=== PATIENT | male | born 1945 | race Hispanic/Latino ===

== ENCOUNTER 2020-05-03 13:42 | Emergency (ER) | payer MEDICARE ==
[~2020-05-03] VITALS: Ht 165.1 cm; Wt 75.7 kg
[2020-05-03] MEDS ORDERED: SODIUM CHLORIDE 0.9% 1000ML 1,000 ML IV STA (14:04)
--- NOTE | 2020-05-03 14:05 | NUR ---
RT TYSHAWN AT BEDSIDE AT THIS TIME TO PLACE PATIENT ON AIR-VO DUE TO LOW O2 SATS ON STANDARD NASAL CANNULA.
--- NOTE | 2020-05-03 14:11 | NUR ---
PT NOW ON AIR-VO, 40L AT 70%. CURRENT OXYGEN SATS ARE NOW 94%
[2020-05-03] MEDS ORDERED: CEFTRIAXONE SOD 1 GM/NS 50 ML 50 ML IV ONE (14:15)
[2020-05-03 14:28] LABS: BASOPHILS % 0.2 % (0.0-1.0); EOSINOPHILS % 0.1 % (0.0-6.0); LYMPHOCYTES # (AUTO) 0.5 (1.0-3.2); LYMPHOCYTES % 5.4 % (18.0-39.1); MEAN CORPUSCULAR HEMOGLOBIN 34.3 pg (28-32); MEAN CORPUSCULAR HGB CONC 35.9 g/dL (31-35); MEAN CORPUSCULAR VOLUME 95.6 fL (81-99); MONOCYTES # (AUTO) 0.2 (0.2-0.8); MONOCYTES % 2.4 % (4.4-11.3); NEUTROPHILS # (AUTO) 8.6 (2.1-6.9); NEUTROPHILS % 91.4 % (38.7-80.0); PLATELET COUNT 166 x10e3/uL (140-360); RED BLOOD COUNT 4.08 x10e6/uL (4.3-5.7); RED CELL DISTRIBUTION WIDTH 12.7 % (11.7-14.4)
[2020-05-03] MEDS ORDERED: DEXAMETHASONE SOD PHOS INJ 4 MG/ML VIAL IV ONE (14:30)
[2020-05-03 14:37] LABS: INR 0.96; PROTHROMBIN TIME 13.3 seconds (11.9-14.5)
[2020-05-03 14:38] LABS: PARTIAL THROMBOPLASTIN TIME 65.2 seconds (23.8-35.5)
[2020-05-03 14:45] LABS: ALANINE AMINOTRANSFERASE 23 IU/L (0-55); ALBUMIN 2.9 g/dL (3.5-5.0); ALBUMIN/GLOBULIN RATIO 0.6 (0.8-2.0); ALKALINE PHOSPHATASE 63 IU/L (40-150); ANION GAP 14.3 mmol/L (8-16); BLOOD UREA NITROGEN 13 mg/dL (7-26); BUN/CREATININE RATIO 16 (6-25); CALCIUM 8.1 mg/dL (8.4-10.2); CARBON DIOXIDE 24 mmol/L (22-29); CHLORIDE 93 mmol/L (98-107); CREATINE KINASE 62 IU/L (30-200); CREATININE, SERUM 0.83 mg/dL (0.72-1.25); EST GLOMERULAR FILTRATION RATE > 60 ML/MIN (60-); GLUCOSE 114 mg/dL (74-118); POTASSIUM 4.3 mmol/L (3.5-5.1); SODIUM 127 mmol/L (136-145)
--- NOTE | 2020-05-03 14:54 | Emergency Department Note ---
History of Present Illnes History of Present Illness Chief Complaint: COVID PUI History of Present Illness This is a 75 year old male Patient in from home with complaints of fever, fatigue and weakness over the last two weeks. Patient tested positive for Covid- 19 16 days ago and positive for flu 6 days ago. Patient denies pain and shortness of breath. Patient is afebrile in triage but has an oxygen saturation of 62% on room air and 83% on 4L N/C. Patient has a history of parkinson disease. No respiratory distress noted. 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 Any updates have been documented here. Past Medical History Recent Fever: Yes Clinical Suspicion of Infectio: Yes New/Unexplained Change in Ment: No Past Medical History: Hypertension, CAD, Hyperlipedemia Other Medical History: parkinson disease Past Surgical History: PCI Social History Smoking Cessation: Never Smoker Counseling Performed: No Alcohol Use: None Any Illegal Drug Use: No TB Exposure/Symptoms: No Physically hurt or threatened: No Family History Family history of heart diseas: No Other Any Pre-Existing Lines (PICC,: No Review of Systems Review of Systems Constitutional: Reports as per HPI EENTM: Reports no symptoms Cardiovascular: Reports as per HPI Respiratory: Reports as per HPI Gastrointestinal: Reports no symptoms Genitourinary: Reports no symptoms Musculoskeletal: Reports other (ACHY ALL OVER) Integumentary: Reports no symptoms Neurological: Reports no symptoms Psychological: Reports no symptoms Endocrine: Reports no symptoms Hematological/Lymphatic: Reports no symptoms Physical Exam Related Data Allergies: Coded Allergies: Penicillins (Verified Allergy, Unknown, 05/03/20) Triage Vital Signs Vital Signs Date Time Temp Pulse Resp B/P (MAP) Pulse Ox O2 Delivery O2 Flow Rate FiO2 05/03/20 13:47 98.9 93 18 157/80 75 Nasal Cannula 4.0 05/03/20 14:12 70 Vital signs reviewed: Yes Physical Exam CONSTITUTIONAL Constitutional: Present well-developed, Present well-nourished HENT HENT: Present normocephalic, Present atraumatic, Present oropharynx clear/moist, Present nose normal HENT L/R: Present left ext ear normal, Present right ext ear normal EYES Eyes: Reports PERRL, Reports conjunctivae normal NECK Neck: Present ROM normal PULMONARY Pulmonary: Present effort normal, Present respiratory distress (tachypnea, low O2 sat), Present other (scattered diffuse rhonchi and decr BS's throughout) CARDIOVASCULAR Cardiovascular: Present regular rhythm, Present heart sounds normal, Present capillary refill normal, Present normal rate GASTROINTESTINAL Abdominal: Present soft, Present nontender, Present bowel sounds normal GENITOURINARY Genitourinary: Present exam deferred SKIN Skin: Present warm, Present dry MUSCULOSKELETAL Musculoskeletal: Present ROM normal NEUROLOGICAL Neurological: Present alert, Present oriented x 3, Present no gross motor or sensory deficits PSYCHOLOGICAL Psychological: Present mood/affect normal, Present judgement normal Results Laboratory Result Diagram: 05/03/20 1400 05/03/20 1400 Laboratory Laboratory Tests Test 05/03/20 14:00 White Blood Count 9.43 x10e3/uL (4.8-10.8) Red Blood Count 4.08 x10e6/uL (4.3-5.7) Hemoglobin 14.0 g/dL (14.0-18.0) Hematocrit 39.0 % (38.2-49.6) Mean Corpuscular Volume 95.6 fL (81-99) Mean Corpuscular Hemoglobin 34.3 pg (28-32) Mean Corpuscular Hemoglobin Concent 35.9 g/dL (31-35) Red Cell Distribution Width 12.7 % (11.7-14.4) Platelet Count 166 x10e3/uL (140-360) Neutrophils (%) (Auto) 91.4 % (38.7-80.0) Lymphocytes (%) (Auto) 5.4 % (18.0-39.1) Monocytes (%) (Auto) 2.4 % (4.4-11.3) Eosinophils (%) (Auto) 0.1 % (0.0-6.0) Basophils (%) (Auto) 0.2 % (0.0-1.0) Neutrophils # (Auto) 8.6 (2.1-6.9) Lymphocytes # (Auto) 0.5 (1.0-3.2) Monocytes # (Auto) 0.2 (0.2-0.8) Eosinophils # (Auto) 0.0 (0.0-0.4) Basophils # (Auto) 0.0 (0.0-0.1) Absolute Immature Granulocyte (auto 0.05 x10e3/uL (0-0.1) Prothrombin Time 13.3 seconds (11.9-14.5) Prothromb Time International Ratio 0.96 Activated Partial Thromboplast Time 65.2 seconds (23.8-35.5) Sodium Level 127 mmol/L (136-145) Potassium Level 4.3 mmol/L (3.5-5.1) Chloride Level 93 mmol/L (98-107) Carbon Dioxide Level 24 mmol/L (22-29) Anion Gap 14.3 mmol/L (8-16) Blood Urea Nitrogen 13 mg/dL (7-26) Creatinine 0.83 mg/dL (0.72-1.25) Estimat Glomerular Filtration Rate > 60 ML/MIN (60-) BUN/Creatinine Ratio 16 (6-25) Glucose Level 114 mg/dL (74-118) Calcium Level 8.1 mg/dL (8.4-10.2) Total Bilirubin 1.4 mg/dL (0.2-1.2) Aspartate Amino Transf (AST/SGOT) 39 IU/L (5-34) Alanine Aminotransferase (ALT/SGPT) 23 IU/L (0-55) Alkaline Phosphatase 63 IU/L (40-150) Creatine Kinase 62 IU/L (30-200) Total Protein 7.4 g/dL (6.5-8.1) Albumin 2.9 g/dL (3.5-5.0) Globulin 4.5 g/dL (2.3-3.5) Albumin/Globulin Ratio 0.6 (0.8-2.0) Influenza Virus Types A,B Antigen Negative (NEGATIVE) Lab results reviewed: Yes Imaging Imaging results reviewed: Yes Procedures 12 Lead ECG Interpretation ECG Interpretation : ECG: ECG 1 Linseed Cake Trimmer: Interpreted by ED physician Date: May 03, 2020 Time: 15:29 Rhythm: sinus rhythm Rate: normal BPM: 91 Conduction: right bundle branch block ST segments normal: Yes T wave inversion: III, aVR, V1, V2 T waves flattening: aVF Clinical Impression: abnormal ECG Critical Care Time Total Critical Care Time (min): 45 Critcal care time spent by me: discussion w consultants, examination of patient, obtaining hx from patient/surrogate, order/perform tx or interventions, order/review laboratory studies, order/review radiographic studies, pulse oximetry, re-evaluation of patient condition Assessment & Plan Medical Decision Making MDM recent covid positive then influenza positive presents feeling worse, fatigue/weak, with O2 sat 62% on RA - went to 83% on 4L NC - then AirVo initiated, currently 95-96% sat on 40L with 70% O2. CBC, CHEM, ECG, CARDIACS, COVID SWAB, INFLUENZA SWAB, CT CHEST - R/O COVID, INFLUENZA, PULM EMBOLI, PNEUMONIA, STEMI/NSTEMI Reassessment Reassessment PT COVID POSITIVE - NO COVID BEDS AVAILABLE HERE, WILL INITIATE TRANSFER - I SPOKE WITH DR ALTAMIRANO (HOSPITALIST) AND DR CYR (HOTEL HOUSEMAN) AT [facility] - ACCEPTED FOR TRANSFER Assessment & Plan Final Impression: (1) Pneumonia due to COVID-19 virus (2) Hypoxia (3) Respiratory failure with hypoxia Depart Disposition: TRANS TO OTHER [facility] Last Vital Signs Date Time Temp Pulse Resp B/P (MAP) Pulse Ox O2 Delivery O2 Flow Rate FiO2 05/03/20 14:12 82 21 123/69 94 Airvo 40.0 70 05/03/20 13:47 98.9 Medications in the ED Sodium Chloride 1,000 ml @ 0 mls/hr Q0M STAT IV ; Start 05/03/20 at 14:04; Stop 05/03/20 at 14:07; Status DC Ceftriaxone Sodium 50 ml @ 100 mls/hr ONCE ONCE IV ; Start 05/03/20 at 14:15; Stop 05/03/20 at 14:44; Status DC Azithromycin 250 ml @ 200 mls/hr ONCE ONCE IV ; Start 05/03/20 at 15:00; Stop 05/03/20 at 16:14 Dexamethasone Sodium Phosphate 6 mg ONCE ONCE IV ; Start 05/03/20 at 14:30; Stop 05/03/20 at 14:31; Status DC MERRILL PICKARD MD May 03, 2020 14:54
[2020-05-03] MEDS ORDERED: AZITHROMYCIN 500MG/NS 250 ML 250 ML IV ONE (15:00)
[2020-05-03] MEDS ORDERED: IOPAMIDOL 370 MG/ML 200 ML INFUS..BTL INJ ONE (15:19)
[2020-05-03] MEDS ORDERED: SODIUM CHLORIDE 0.9% 50ML 50 ML ONE (15:19)
[2020-05-03 16:29] LABS: LYMPHOCYTES % (MANUAL) 2 % (19-48); MONOCYTES % (MANUAL) 2 % (3.4-9.0); NEUTROPHILS % (MANUAL) 96 % (40-74)
[2020-05-03 16:30] LABS: RBC MORPHOLOGY COMMENT NORMAL
[2020-05-03 16:31] LABS: PLATELET ESTIMATE ADEQUATE; PLATELET MORPHOLOGY COMMENT NORMAL
--- NOTE | 2020-05-03 18:27 | NUR ---
PT TO BE TRANSFERRED TO [facility] AT THIS TIME PER HS.
--- NOTE | 2020-05-03 18:29 | NUR ---
ICU-[facility] TRANSFER CENTER FOR REPORT
--- NOTE | 2020-05-03 18:41 | NUR ---
REPORT GIVEN TO [facility] ANIMAL FACILITY SUPERVISOR, EVELIA, AT THIS TIME. [facility] TRANSPORT AT THIS TIME.
--- NOTE | 2020-05-03 18:48 | NUR ---
[facility] ETA 2000 FOR TRANSPORT TO [facility]. DAUGHTERS HAVE BEEN INFORMED OF PATIENT'S TRANSFER.
--- NOTE | 2020-05-03 20:20 | NUR ---
PT JUST [facility] AT [facility]
--- NOTE | 2020-05-04 08:33 | Diagnostic Imaging Report ---
EXAM: CT Chest WITH contrast 05/03/2020 3:50 PM INDICATION: ^Y ^PE PROTOCOL ^[id number] ^[id number] COMPARISON: None TECHNIQUE: Chest was scanned utilizing a multidetector helical scanner from the lung apex through the level of the adrenal glands with administration of IV contrast. Coronal and sagittal reformations were obtained. Routine protocol was performed. IV CONTRAST: 100 mL of Omnipaque 300 COMPLICATIONS: None RADIATION DOSE: Total DLP: 506 mGy*cm Estimated effective dose: (DLP x 0.014 x size factor) mSv CTDIvol has been reviewed. It is below the limits set by the Radiation Protocol Committee (RPC). Dose modulation, iterative reconstruction, and/or weight based adjustment of the mA/kV was utilized to reduce the radiation dose to as low as reasonably achievable. FINDINGS: LINES/ TUBES: None. VASCULAR: There are no filling defects within the pulmonary arteries to the segmental level. The main pulmonary artery has normal caliber measuring 2.7 cm. The ascending and descending aorta have normal enhancement and caliber measuring 3.7 cm and 2.6 cm, respectively. LUNGS AND AIRWAYS: There is diffuse groundglass opacity with patchy areas of lungs bearing. There is also diffuse bronchial wall thickening. Airways are normal. PLEURA: The pleural spaces are clear. HEART AND MEDIASTINUM: The thyroid gland is normal. No mediastinal, hilar or axillary lymphadenopathy. The heart is mildly enlarged. There is no pericardial effusion. There are significant atherosclerotic calcifications of the coronary arteries. UPPER ABDOMEN: Unremarkable. BONES: There are degenerative changes in the thoracic spine. SOFT TISSUES: Unremarkable. IMPRESSION: 1. No evidence of pulmonary embolism to the segmental levels. 2. Diffuse patchy groundglass opacities throughout both lungs most compatible with multifocal pneumonia. 3. Moderate cardiomegaly with severe atherosclerotic calcification of the coronary vessels. Findings were discussed with Dr. De Leon at 7:30 PM on 05/03/2020. Signed by: Anjelica Szymanski MD on 05/04/2020 8:30 AM
--- OUTSIDE RECORDS SUMMARY | 2020-05-04 10:07 | XMS REPORT | Continuity of Care Document ---
Author Author [facility] t Organization Formerly [facility] Address [address] [place] [address] Phone Unavailable Care Team Providers Care Painter Interior Finish Name Role Phone MD Roney BERNARD PCP ROCIO ALTAMIRANO Attphys Unavailable Rocio Altamirano MD Attphys [phone] Mirna DEL RIO, Jb Cooley Attphys Brad DE LEON Attphys Unavailable Jason WEINBERG Attphys Unavailable TEN CONTRERAS Attphys Unavailable ELOINA ANGEL Attphys Unavailable ROCIO ALTAMIRANO Admphys Unavailable ELOINA ANGEL Admphys Unavailable Payers Payer Name Policy Type Policy Number Effective Date Expiration Date Roney puentes [employer] PPO [id number] 2019-PresentMaps Karlos fontaine [id number] 2019 00:00:00 [facility] r [employer] [place] [employer] [facility] [id number] 2019 00:00:00 [facility] [employer] [id number] 2015 00:00:00 [facility] Problems Condition Name Condition Details Condition Category Status Onset Date Resolution Date Last Treatment Date Treating Clinician Comments Source Pneumonia due to COVID-19 virus Pneumonia due to COVID-19 virus Dis ease Active 2020-05-04 00:00:00 [facility] Acute respiratory failure with hypoxia Acute respiratory iraj lure with hypoxia Disease Active 2020-05-04 00:00:00 [facility] COVID-19 COVID-19 Disease Active 2020-05-03 00:00:00 [facility] Chest pain Chest pain Problem Active 2015-09-21 00:00:00 [facility] Hypoxia Problem Active [facility] Respiratory failure with hypoxia Problem Active [facility] Fever Problem Active [facility] Influenza due to influenza virus, type A, human Problem Active [facility] Allergies, Adverse Reactions, Alerts Allergy Name Allergy Type Status Severity Reaction(s) Onset Date Inacti ve Date Treating Clinician Comments Source Penicillin Allergy to substance Active 2020-05-03 00:00:00 [facility] Penicillins Propensity to adverse reactions Active Audrey phylaxis 2020-05-03 00:00:00 [facility] DA Active SV 2018-09-26 00:00:00 [facility] Atorvastatin Allergy to substance Active 2018-09-22 00:00:0 0 [facility] penicillin Allergy to substance Active Mild RASH/ FEVER 2015-09-21 0 0:00:00 [facility] Penicillins DA Active U 2009-03-11 00:00:00 [facility] Social History Social Habit Start Date Stop Date Quantity Comments Source Sex Assigned At [facility] Exposure to SARS-CoV-2 (event) Not sure [facility] Medications Ordered Medication Name Filled Medication Name Start Date Stop Da te Current Medication? Ordering Clinician Indication Dosage Frequency Signature (SIG) Comments Components Source clopidogreL (PLAVIX) 75 mg tablet 2020-05-04 09:06:58 Yes 75mg QD Take 75 mg by mouth daily. [facility] carvediloL (COREG) 6.25 MG tablet 2020-05-04 09:06:58 Yes 6.25mg Take 6.25 mg by mouth 2 (two) times daily with breakfast and dinner. [facility] amLODIPine (NORVASC) 5 MG tablet 2020-05-04 09:06:58 Yes 5mg QD Take 5 mg by mouth daily. [facility] rosuvastatin (CRESTOR) 5 MG tablet 2020-05-04 09:06:58 Yes 5mg QD Take 5 mg by mouth daily. [facility] aspirin 81 MG EC tablet 2020-05-04 09:06:58 Yes 81mg QD Take 81 mg by mouth daily. [facility] losartan (COZAAR) 50 MG tablet 2020-05-04 09:06:58 Yes 50mg QD Take 50 mg by mouth daily. [facility] fluticasone (VERAMYST) 27.5 mcg/actuation nasal spray 2020-05-04 09:06:58 Yes 2{spray} QD 2 sprays by Nasal route daily. [facility] carbidopa-levodopa (SINEMET) 25-100 mg per tablet 2020-05-04 09:06:58 Yes 1{tbl} [id number] Take 1 tablet by mouth 3 (three ) times daily. [facility] Amlodipine Besylate Amlodipine Besylate Yes 5 Daily [facility] Aspirin (Aspir 81) 81 Mg TABLET. Aspirin (Aspir 81) 81 Mg TABLET. Yes 81 Daily [facility] Atenolol Atenolol Yes [address] [facility] Benzonatate (Tessalon Perle) 100 Mg CAPSULE Benzonatat e (Tessalon Perle) 100 Mg CAPSULE Yes 100 Every 6 Hours as needed for Co ugh [facility] Clopidogrel Bisulfate (Clopidogrel) 75 Mg TABLET Clopi dogrel Bisulfate (Clopidogrel) 75 Mg TABLET Yes 75 Daily [facility] Fluticasone Propionate Fluticasone Propionate Yes 1 Twice A Day [facility] Isosorbide Mononitrate (Isosorbide Mononitrate Er) 30 Mg TAB.ER.24H Isosorbide Mononitrate (Isosorbide Mononitrate Er) 30 Mg TAB.ER.24H Yes 30 Daily [facility] Loratadine Loratadine Yes 10 Daily [facility] Medrol Medrol Yes Twice A Day [facility] Montelukast Sodium Montelukast Sodium Yes 10 Da simran [facility] Rosuvastatin Calcium (Crestor) 5 Mg TABLET Rosuvastati n Calcium (Crestor) 5 Mg TABLET Yes 5 Daily [facility] Vital Signs Vital Name Observation Time Observation Value Comments Source Systolic blood pressure 2020-05-04 08:00:00 133 mm[Hg] [facility] Diastolic blood pressure 2020-05-04 08:00:00 73 mm[Hg] [facility] Heart rate 2020-05-04 08:00:00 87 /min [facility] Respiratory rate 2020-05-04 08:00:00 22 /min [facility] Oxygen saturation in Arterial blood by Pulse oximetry 2019-06 08:00:00 95 /min [facility] Body temperature 2020-05-04 04:00:00 36.67 Rachelle [facility] Body height 2020-05-03 23:32:00 165.1 cm [facility] Body weight 2020-05-03 21:30:00 79.833 kg [facility] BMI 2020-05-03 21:30:00 29.29 kg/m2 [facility] Oxygen saturation by Pulse oximetry 2020-05-03 18:05:00 97 /min [facility] Heart Rate 2020-05-03 14:11:00 89 /min [facility] Respiratory rate 2020-05-03 14:11:00 24 /min [facility] Weight 2020-05-03 13:47:00 167 [lb_av] [facility] BMI (Body Mass Index) 2020-05-03 13:47:00 27.8 kg/m2 [facility] Oxygen saturation by Pulse oximetry 2020-04-28 23:13:00 99 /min [facility] Weight 2020-04-28 19:50:00 170 [lb_av] [facility] BMI (Body Mass Index) 2020-04-28 19:50:00 7.6 kg/m2 [facility] Procedures Procedure Date / Time Performed Performing Clinician Sour e BASIC METABOLIC PANEL (7) 2020-05-04 05:30:00 Jacquelin Alba [facility] CT BRAIN WITHOUT IV CONTRAST 2020-05-04 02:34:00 Jacquelin Alba icole [facility] CT CHEST PE TEST DESIGN 2020-05-04 02:34:00 Parth, Jacquelinrogerio Heath [facility] ECG 12-LEAD 2020-05-04 01:37:46 Unknown, Hl7 Doctor [facility] RAPID INFLUENZA A&B SCREEN 2020-05-04 00:38:00 Jacquelin Alba [facility] BLOOD GAS, ARTERIAL 2020-05-03 23:33:00 Parth Jacquelinrogerio Heath [facility] XR CHEST 1 VIEW PORTABLE/BEDSIDE 2020-05-03 22:38:00 Ricky Alba [facility] HEMOGLOBIN A1C 2020-05-03 22:36:00 Parth, Jacquelinrogerio Heath [facility] MAGNESIUM 2020-05-03 22:35:00 Parth, Jacquelinrogerio Heath [facility] PHOSPHORUS 2020-05-03 22:35:00 Fillmore, Jacquelin [facility] CALCIUM, IONIZED 2020-05-03 22:35:00 FillmoreJacquelin [facility] TSH/FREE T4 IF INDICATED 2020-05-03 22:35:00 FillmoreJacquelin e [facility] T4, FREE 2020-05-03 22:35:00 Fillmore Jacquelinrogerio Heath [facility] PROTHROMBIN TIME/INR 2020-05-03 22:29:00 Fillmore Jacquelinrogerio Heath [facility] APTT 2020-05-03 22:29:00 Fillmore Jacquelinrogerio Heath [facility] COMPREHENSIVE METABOLIC PANEL 2020-05-03 22:29:00 Fillmore Jacquelinrogerio Heath [facility] PROCALCITONIN 2020-05-03 22:29:00 [facility]ACT[facility], VENOUS 2020-05-03 22:29:00 Parth, Jacquelin Heath [facility] FERRITIN 2020-05-03 22:29:00 Parth, [facility] C-REACTIVE PROTEIN 2020-05-03 22:29:00 Parth, [facility] LACTATE DEHYDROGENASE (LDH) 2020-05-03 22:29:00 Parth, Jacquelin shook [facility] D-DIMER 2020-05-03 22:29:00 Parth, [facility] LIPID PANEL 2020-05-03 22:29:00 Parth, [facility] CBC W/PLT COUNT & AUTO DIFFERENTIAL 2020-05-03 22:29:00 Roney Alba bonita [facility] POCT-GLUCOSE METER 2020-05-03 22:05:00 Manish Altamirano I [facility] Computed tomography of chest with contrast 2020-05-03 00:00:00 [facility] Plan of Care Planned Activity Planned Date Details Comments Source Future Scheduled Test 2020-02-13 00:00:00 INFLUENZA VACCINE (#1) [code = INFLUENZA VACCINE (#1)] [facility] r Future Scheduled Test 2019-06-14 00:00:00 Medicare IPPE (WEL COME TO MEDICARE) [code = Medicare IPPE (WELCOME TO MEDICARE)] [facility] Future Scheduled Test 2008-01-28 00:00:00 PNEUMOCOCCAL 65+ Y RS (1 of 1 - [id number] PCV13) [code = PNEUMOCOCCAL 65+ YRS (1 of 1 - [id number] PCV13)] [facility] Instructions Fever - Adult [facility] Instructions Flu - Adult [facility] Encounters Start Date/Time End Date/Time Encounter Type Admission Type Attendi [facility] Care Department Encounter ID Source 2020-04-28 20:01:00 2020-04-28 23:30:00 Departed Emergency Room 1 SERA WEINBERG [facility] [id number] [facility] 2019-06-30 10:57:00 2019-07-14 23:59:00 Discharged Recurring [facility] [id number] [facility] 2019-06-16 10:33:00 2019-06-16 10:33:00 Registered Clinic 3 TEN CONTRERAS [facility] [id number] [facility] 2019-05-26 11:04:00 2019-06-13 23:59:00 Discharged Recurring [facility] [id number] [facility] 2019-04-20 11:12:00 2019-05-13 23:59:00 Discharged Recurring [facility] [id number] [facility] 2019-03-15 10:05:00 2019-04-13 23:59:00 Discharged Recurring [facility] [id number] [facility] 2019-02-16 10:15:00 2019-03-13 23:59:00 Discharged Recurring [facility] [id number] [facility] 2018-09-26 16:04:00 2018-09-26 16:26:00 Departed Emergency Room [facility] [id number] [facility] 2018-09-23 01:34:00 2018-09-24 16:01:00 Discharged Inpatient (obs) 1 ELOINA ANGEL [facility] [id number] [facility] Results Test Description Test Time Test Comments Results Result Comments Source CT CHEST W 2020-05-04 08:13:00 [facility] 1945 Sex: M [place] [address] Patient Name: DAVID TUCKER JR MR #: [id number] : 1945 Age/Sex: 75/M Req #: [id number] Adm Physician: Ordered by: MERRILL DE LEON MD Report #: [id number] Location: ER Room/Bed: Procedure: [id number] CT/CT CHEST W Exam Date: 05/03/20 Exam Time: 1550 REPORT STATUS: Signed EXAM: CT Chest WITH contrast 05/03/2020 3:50 PM INDICATION: Y PE PROTOCOL [id number] COMPARISON: None TECHNIQUE: Chest was scanned utilizing a multidetector helical scanner from the lung apex through the level of the adrenal glands with administration of IV contrast. Coronal and sagittal reformations were obtained. Routine protocol was performed. IV CONTRAST: 100 mL of Omnipaque 300 COMPLICATIONS: None RADIATION DOSE: Total DLP: 506 mGy*cm Estimated effective dose: (DLP x 0.014 x size factor) mSv CTDIvol has been reviewed. It is below the limits set by the Radiation Protocol Committee (RPC). Dose modulation, iterative reconstruction, and/or weight based adjustment of the mA/kV was utilized to reduce the radiation dose to as low as reasonably achievable. FINDINGS: LINES/ TUBES: None. VASCULAR: There are no filling defects within the pulmonary arteries to the segmental level. The main pulmonary artery has normal caliber measuring 2.7 cm. The asc ending and descending aorta have normal enhancement and caliber measuring 3.7 cm and 2.6 cm, respectively. LUNGS AND AIRWAYS: There is diffuse groundglass opacity with patchy areas of lungs bearing. There is also diffuse bronchial wall thickening. Airways are normal. PLEURA: The pleural spaces are clear. HEART AND MEDIASTINUM: The thyroid gland is normal. No mediastinal, hilar or axillary lymphadenopathy. The heart is mildly enlarged. There is no pericardial effusion. There are significant atherosclerotic calcifications of the coronary arteries. UPPER ABDOMEN: Unremarkable. BONES: There are degenerative changes in the thoracic spine. SOFT TISSUES: Unremarkable. IMPRESSION: 1. No evidence of pulmonary embolism to the segmental levels. 2. Diffuse patchy groundglass opacities throughout both lungs most compatible with multifocal pneumonia. 3. Moderate cardiomegaly with severe atherosclerotic calcification of the coronary vessels. Findings were discussed with Dr. De Leon at 7:30 PM on 05/03/2020. Signed by: Amber Clifton MD on 05/04/2020 8:30 AM Dictated By: AMBER CLIFTON MD 9 Transcribed By: CAROLINE on 05/04/20829 COPY TO: MERRILL DE LEON MD Basic Metabolic Panel 2020-05-04 07:04:00 Test Item Sodium (test code = 2951-2) 129 meq/L 135-148 L Potassium (test code = 2823-3) 4.0 meq/L 3.5-5.5 Chloride (test code = 2075-0) 98 meq/L 98-106 CO2 (test code = 2027-9) 20 meq/L 20-31 BUN (test code = 3094-0) 13 mg/dL 10-26 Creatinine (test code = 2160-0) 0.69 mg/dL 0.5-1.2 Glucose (test code = 2345-7) 166 mg/dL 70-110 H Calcium (test code = 03296-2) 7.7 mg/dL 8.5-10.5 L EGFR (test code = 86665-8) 111 mL/min/1.73 sq m ESTIMATED GFR IS NOT ACCURATE CREATININE CLEARANCE IN PREDICTING GLOMERULAR FILTRATION RATE. ESTIMATED GFR IS NOT APPLICABLE FOR DIALYSIS PATIENTS. HENRY (test code = HENRY) Surgical Territory Manager ID - [id number] Lab Interpretation (test code = 10092-3) [facility] [id number] 07:04:00* Test Item Value Reference Range Interpretation Comments SODIUM (BEAKER) (test code = 381) 129 meq/L 135-148 L POTASSIUM (BEAKER) (test code = 379) 4.0 meq/L 3.5-5.5 CHLORIDE (BEAKER) (test code = 382) 98 meq/L 98-106 CO2 (BEAKER) (test code = 355) 20 meq/L 20-31 BLOOD UREA NITROGEN (BEAKER) (test code = 354) 13 mg/dL 10-26 CREATININE (BEAKER) (test code = 358) 0.69 mg/dL 0.50-1.20 GLUCOSE RANDOM (BEAKER) (test code = 652) 166 mg/dL 70-110 H CALCIUM (BEAKER) (test code = 697) 7.7 mg/dL 8.5-10.5 L EGFR (BEAKER) (test code = 1092) 111 mL/min/1.73 sq m ESTIMATED GFR IS NOT ACCURATE CREATININE CLEARANCE IN PREDICTING GLOMERULAR FILTRATION RATE. ESTIMATED GFR IS NOT APPLICABLE FOR DIALYSIS PATIENTS. Surgical Territory Manager ID - [id number], CHEST WITH IV CONTRAST- PE TEST [id number] 03:31:00Unlisted Reason for Exam - Click Yes and Enter Reason Below->No [facility] 1945 Sex: M FINAL REPORT 48 CT, CHEST WITH IV CONTRAST- PE TEST DESIGN INDICATION: PE suspected, intermed iate prob, positive D-dimer COMPARISON: None TECHNIQUE: Contrast enhanced CT exa mination of the chest in the pulmonary arterial phase from the bases to the apic es. Orthogonal reformatted images as well as coronal maximum intensity projectio n images were obtained. DOSE REDUCTION: Dose modulation, iterative reconstructi on, and/or weight-based adjustment of the mA/kV was utilized to reduce the radia tion dose to as low as reasonably achievable. FINDINGS: Lungs and pleura: Extens leonela bilateral groundglass opacities are present. No effusion or pneumothorax.Stan tral airways: Patent.Mediastinum: The mediastinal lymph nodes are not pathologic ally enlarged.Heart and pericardium: Normal heart size. Coronary artery calcific ations present. Great vessels: Normal calibers.Pulmonary embolism: None. Regiona l skeletal structures: Intact. Included upper abdomen: No acute abnormalities. A dditional findings: None. IMPRESSION:No pulmonary embolism. Commonly reported im aging features of (COVID-19 or viral) pneumonia are present. Other processes suc h as influenza pneumonia and organizing pneumonia, as can be seen with drug toxi city and connective tissue disorder, can cause a similar imaging pattern. Signed : Jamar Nicole MDReport Verified Date/Time: 05/04/2020 03:31:23 Electron ically signed by: JAMAR NICOLE MD on 05/04/2020 03:[address] chest for pulmonary [id number] 03:31:00Interface, External Ris In - 05/04/2020 3:[address], CHEST WITH IV CONTRAST- PE TEST DESIGN INDICATION: PE suspected, intermediate prob, positive D-dimer COMPARISON: None TECHNIQUE: Contrast enhanced CT examination of the chest in the pulmonary arterial phase from the bases to the apices. Orthogonal reformatted images as well as coronal maximum intensity projection images were obtained. DOSE REDUCTION: Dose modulation, iterative reconstruction, and/or weight-based adjustment of the mA/kV was utilized to reduce the radiation dose to as low as reasonably achievable. FINDINGS: Lungs and pleura: Extensive bilateral groundglass opacities are present. No effusion or pneumothorax.Central airways: Patent.Mediastinum: The mediastinal lymph nodes are not pathologically enlarged.Heart and pericardium: Normal heart size. Coronary artery tristan cifications present. Great vessels: Normal calibers.Pulmonary embolism: None. Re gional skeletal structures: Intact. Included upper abdomen: No acute abnormaliti es. Additional findings: None. IMPRESSION:No pulmonary embolism. Commonly report ed imaging features of (COVID-19 or viral) pneumonia are present. Other processe s such as influenza pneumonia and organizing pneumonia, as can be seen with drug toxicity and connective tissue disorder, can cause a similar imaging pattern. S igned: Jamar Nicole MDReport Verified Date/Time: 05/04/2020 03:31:23 Kina ctronically signed by: JAMAR NICOLE MD on 05/04/2020 03:31 AM [facility] [id number] 03:23:00Unlisted Reason for Exam - Click Yes and Enter Reason Below->No [facility] 1945 Sex: M FINAL REPORT 48 CT, BRAIN, WITHOUT CONTRAST CLINICAL INDICATION: Altered mental status OBI RISON: None TECHNIQUE: Noncontrast axial CT imaging of the brain and skull. Cor onal and sagittal reformats obtained. DOSE REDUCTION: Dose modulation, iterative reconstruction, and/or weight-based adjustment of the mA/kV was utilized to red uce the radiation dose to as low as reasonably achievable. FINDINGS:Cerebral par enchyma: No mass, acute intracranial hemorrhage or acute cortical infarct.Cerebe llum and brainstem: No acute findings.Ventricles: No acute hydrocephalus.Extra-a xial spaces: Unremarkable. Calvarium and skull base: Intact.Paranasal sinuses an d mastoid air cells: Imaged chambers are without acute abnormality.Orbital lit nts: Included portions unremarkable. Additional findings: None. IMPRESSION: No acute intracranial abnormality. If there is persistent clinical concern for intr acranial pathology, MR examination is recommended for further characterization. Signed: Jamar Nicole MDReport Verified Date/Time: 05/04/2020 03:23:46 El ectronically signed by: JAMAR NICOLE MD on 05/04/2020 03:[address] brain without IV [id number] 03:23:00Interface, External Ris In - 05/04/2020 3:[address], BRAIN, WITHOUT CONTRAST CLINICAL INDICATION: Altered mental status COMPARISON: None TECHNIQUE: Noncontrast axial CT imaging of the brain and skull. Coronal and sagittal reformats obtained. DOSE REDUCTION: Dose modulation, iterative reconstruction, and/or weight-based adjustment of the mA/kV was utilized to reduce the radiation dose to as low as reasonably achievable. FINDINGS:Cerebral parenchyma: No mass, acute intracranial hemorrhage or acute cortical infarct.Cerebellum and brainstem: No acute findings.Ventricles: No acute hydrocephalus.Extra-axial spaces: Unremarkable. Calvarium and skull base: Intact.Paranasal sinuses and mastoid air cells: Imaged chambers are without acute abnormality.Orbital contents: Included portions unremarkable. Additional findings: None. IMPRESSION : No acute intracranial abnormality. If there is persistent clinical concern for intracranial pathology, MR examination is recommended for further characterizat ion. Signed: Jamar Nicole MDReport Verified Date/Time: 05/04/2020 03:23:46 [facility] [id number] 01:43:00* Test Item Value Reference Range Interpretation Comments Rapid Influenza A Antigen (test code = 04127-2) Negative Negati ve Rapid influenza B Antigen (test code = 29717-6) Negative Negati ve Lab Interpretation (test code = 16203-1) Normal [facility]B [id number] 01:43:00* Test Item Value Reference Range Interpretation Comments RAPID INFLUENZA A AG (BEAKER) (test code = 1622) Negative Negat leonela RAPID INFLUENZA B AG (BEAKER) (test code = 1623) Negative Negat leonela T4, [id number] 01:25:00* Test Item Value Reference Range Interpretation Comments Free T4 (test code = 3024-7) 1.10 ng/dL 0.9-1.8 HENRY (test code = HENRY) Surgical Territory Manager ID - ZVermont TranscoRIS Lab Interpretation (test code = 65606-4) Normal [facility], [id number] 01:25:00* Test Item Value Reference Range Interpretation Comments FREE T4 (BEAKER) (test code = 655) 1.10 ng/dL 0.90-1.80 Surgical Territory Manager ID - ZCHRISHemoglobin [id number] 01:01:00* Test Item Value Reference Range Interpretation Comments Hemoglobin A1C (test code = 4548-4) 6.6 % 4.3-6.1 H HENRY (test code = HENRY) Surgical Territory Manager ID - QUALIA (formerly known as [employer])RIS Lab Interpretation (test code = 83252-4) Abnormal [facility] [id number] 01:01:00* Test Item Value Reference Range Interpretation Comments HEMOGLOBIN A1C (BEAKER) (test code = 368) 6.6 % 4.3-6.1 H Surgical Territory Manager ID - ZCHRISTSH/Free T4 If [id number] 00:25:00* Test Item Value Reference Range Interpretation Comments TSH (test code = 61772-1) 0.210 0.350- 5.500 uIU/mL L HENRY (test code = HENRY) Surgical Territory Manager ID - QUALIA (formerly known as [employer])RIS Lab Interpretation (test code = 70198-1) Abnormal [facility]/FREE T4 IF [id number] 00:25:00* Test Item Value Reference Range Interpretation Comments THYROID STIMULATING HORMONE (BEAKER) (test code = 772) 0.210 uIU /mL 0.350-5.500 L Surgical Territory Manager ID - [id number] 00:17:00* Test Item Value Reference Range Interpretation Comments Ferritin (test code = 2276-4) 1489.70 ng/mL 22-322 H HENRY (test code = HENRY) Surgical Territory Manager ID - [email or web address] Lab Interpretation (test code = 76026-0) Abnormal [facility]2020-11-21 00:17:00* Test Item Value Reference Range Interpretation Comments FERRITIN (BEAKER) (test code = 361) 1489.70 ng/mL 22.00-322.00 H Surgical Territory Manager ID - ZCHRISC-Reactive [id number] 00:04:00* Test Item Value Reference Range Interpretation Comments CRP (test code = 676) 27.92 mg/dL 0-0.5 H HENRY (test code = HENRY) Surgical Territory Manager ID - [facility] Lab Interpretation (test code = 25769-2) [facility]00* Test Item Value Reference Range Interpretation Comments Procalcitonin (test code = 13027-2) 0.07 ng/mL <0.05 H HENRY (test code = HENRY) SEPSIS RISK (ng/mL)Low: 0.05-0.50Intermediate: 0.51-2.00High: >=2.01 Lab Interpretation (test code = 93882-0) [facility]normal [facility]ACTIVE [id number] 00:04:00* Test Item Value Reference Range Interpretation Comments C-REACTIVE PROTEIN (BEAKER) (test code = 676) 27.92 mg/dL 0.00-0.5 0 H Surgical Territory Manager ID - [id number] 00:04:00* Test Item Value Reference Range Interpretation Comments PROCALCITONIN (BEAKER) (test code = 3036) 0.07 ng/mL <0.05 H SEPSIS RISK (ng/mL)Low: 0.05-0.50Intermediate: 0.51-2.00High: > =2.01Comprehensive metabolic [id number] 00:03:00* Test Item Value Reference Range Interpretation Comments Protein, Total (test code = 2885-2) 7.1 6.0- 8.5 gm/dL Albumin (test code = 33011-3) 3.1 g/dL 3.5-5 L Alkaline Phosphatase (test code = 6768-6) 76 U/L 30-115 Total Bilirubin (test code = 1975-2) 0.9 mg/dL 0.1-1.3 Sodium (test code = 2951-2) 129 meq/L 135-148 L Potassium (test code = 2823-3) 4.3 meq/L 3.5-5.5 Chloride (test code = 2075-0) 96 meq/L 98-106 L CO2 (test code = 2027-) 21 meq/L 20-31 BUN (test code = 3094-0) 11 mg/dL 10-26 Creatinine (test code = 2160-0) 0.72 mg/dL 0.5-1.2 Glucose (test code = 2345-7) 148 mg/dL 70-110 H Calcium (test code = 05351-7) 7.9 mg/dL 8.5-10.5 L AST (test code = 1920-8) 49 U/L 5-40 H ALT (test code = 1742-6) 29 U/L 6-50 EGFR (test code = 95944-0) 106 mL/min/1.73 sq m ESTIMATED GFR IS NOT ACCURATE CREATININE CLEARANCE IN PREDICTING GLOMERULAR FILTRATION RATE. ESTIMATED GFR IS NOT APPLICABLE FOR DIALYSIS PATIENTS. HENRY (test code = HENRY) Surgical Territory Manager ID - [employer] Lab Interpretation (test code = 06009-8) [facility]act[facility] dehydrogenase (LDH)2020-05-04 00:03:00* Test Item Value Reference Range Interpretation Comments LDH (test code = 2532-0) 428 U/L 125-225 H HENRY (test code = HENRY) Surgical Territory Manager ID - PicodeonCHRIS Lab Interpretation (test code = 14112-9) [facility]normal [facility]anoCOMPREHENSIVE METABOLIC [id number] 00:03:00* Test Item Value Reference Range Interpretation Comments TOTAL PROTEIN (BEAKER) (test code = 770) 7.1 gm/dL 6.0-8.5 ALBUMIN (BEAKER) (test code = 1145) 3.1 g/dL 3.5-5.0 L ALKALINE PHOSPHATASE (BEAKER) (test code = 346) 76 U/L 30-115 BILIRUBIN TOTAL (BEAKER) (test code = 377) 0.9 mg/dL 0.1-1.3 SODIUM (BEAKER) (test code = 381) 129 meq/L 135-148 L POTASSIUM (BEAKER) (test code = 379) 4.3 meq/L 3.5-5.5 CHLORIDE (BEAKER) (test code = 382) 96 meq/L 98-106 L CO2 (BEAKER) (test code = 355) 21 meq/L 20-31 BLOOD UREA NITROGEN (BEAKER) (test code = 354) 11 mg/dL 10-26 CREATININE (BEAKER) (test code = 358) 0.72 mg/dL 0.50-1.20 GLUCOSE RANDOM (BEAKER) (test code = 652) 148 mg/dL 70-110 H CALCIUM (BEAKER) (test code = 697) 7.9 mg/dL 8.5-10.5 L AST (SGOT) (BEAKER) (test code = 353) 49 U/L 5-40 H ALT (SGPT) (BEAKER) (test code = 347) 29 U/L 6-50 EGFR (BEAKER) (test code = 1092) 106 mL/min/1.73 sq m ESTIMATED GFR IS NOT ACCURATE CREATININE CLEARANCE IN PREDICTING GLOMERULAR FILTRATION RATE. ESTIMATED GFR IS NOT APPLICABLE FOR DIALYSIS PATIENTS. Surgical Territory Manager ID - BLAINELACTATE DEHYDROGENASE (LDH)2020-05-04 00:03:00* Test Item Value Reference Range Interpretation Comments LACTATE DEHYDROGENASE (BEAKER) (test code = 635) 428 U/L 125-2 25 H Surgical Territory Manager ID - BLAINELipid [id number] 23:58:00* Test Item Value Reference Range Interpretation Comments Triglycerides (test code = 2571-8) 74 mg/dL Cholesterol (test code = 2093-3) 90 mg/dL HDL (test code = 2085-9) 32 mg/dL LDL Calculated (test code = 85522-4) 43 mg/dL HENRY (test code = HENRY) Triglyceride Reference Range : Low Risk <150 Borderline 150-199 High Risk 200-499 Very High Risk >=500 Cholesterol Reference Range: Low Risk <200 Borderline 200-239 High Risk >240 HDL Cholesterol Reference Range: Low Risk >=60 High Risk <40 LDL Cholesterol Reference Range: Optimal <100 Near Optimal 100-129 Borderline 130-159 High 160-189 Very High >=190 Surgical Territory Manager ID - BULMARORIS [facility] with platelet count + automated [id number] 23:58:00* Test Item Value Reference Range Interpretation Comments WBC (test code = 6690-2) 7.4 4.0- 10.0 K/L RBC (test code = 789-8) 4.11 4.20- 5.80 M/L L MCHC (test code = 786-4) 36.2 32.0- 36.0 GM/DL H Hematocrit (test code = 4544-3) 39.0 % 36-50 MCV (test code = 787-2) 94.9 fL 82-99 MCH (test code = 785-6) 34.3 pg 27-33 H RDW (test code = 788-0) 12.8 % 12-15 Platelets (test code = 777-3) 159 150- 430 K/CU MM MPV (test code = 51108-5) 9.3 fL 6-11.5 nRBC (test code = 413) 0 0- 0 /100 WBC % Neutros (test code = 429) 95 % % Lymphs (test code = 430) 3 % % Monos (test code = 431) 1 % % Eos (test code = 432) 0 % % Baso (test code = 437) 0 % # Neutros (test code = 670) 7.06 1.80- 8.00 K/L # Lymphs (test code = 414) 0.23 1.48- 4.50 K/L L # Monos (test code = 415) 0.08 0.00- 1.30 K/L # Eos (test code = 416) 0.00 0.00- 0.50 K/L # Baso (test code = 417) 0.01 0.00- 0.20 K/L Immature Granulocytes-Relative (test code = 2801) 1 % 0-0 H Lab Interpretation (test code = 52763-1) Abnormal [facility] W/PLT COUNT & AUTO [id number] 23:58:00* Test Item Value Reference Range Interpretation Comments WHITE BLOOD CELL COUNT (BEAKER) (test code = 775) 7.4 K/ L 4.0- 10.0 RED BLOOD CELL COUNT (BEAKER) (test code = 761) 4.11 M/ L 4.20-5 .80 L HEMOGLOBIN (BEAKER) (test code = 410) 14.1 GM/DL 13.0-16.8 HEMATOCRIT (BEAKER) (test code = 411) 39.0 % 36.0-50.0 MEAN CORPUSCULAR VOLUME (BEAKER) (test code = 753) 94.9 fL 82. 0-99.0 MEAN CORPUSCULAR HEMOGLOBIN (BEAKER) (test code = 751) 34.3 pg 27.0-33.0 H MEAN CORPUSCULAR HEMOGLOBIN CONC (BEAKER) (test code = 752) 36.2 GM/DL 32.0-36.0 H RED CELL DISTRIBUTION WIDTH (BEAKER) (test code = 412) 12.8 % 12.0-15.0 PLATELET COUNT (BEAKER) (test code = 756) 159 K/CU MM 150-430 MEAN PLATELET VOLUME (BEAKER) (test code = 754) 9.3 fL 6.0-11 .5 NUCLEATED RED BLOOD CELLS (BEAKER) (test code = 413) 0 /100 WBC 0 -0 NEUTROPHILS RELATIVE PERCENT (BEAKER) (test code = 429) 95 % LYMPHOCYTES RELATIVE PERCENT (BEAKER) (test code = 430) 3 % MONOCYTES RELATIVE PERCENT (BEAKER) (test code = 431) 1 % EOSINOPHILS RELATIVE PERCENT (BEAKER) (test code = 432) 0 % BASOPHILS RELATIVE PERCENT (BEAKER) (test code = 437) 0 % NEUTROPHILS ABSOLUTE COUNT (BEAKER) (test code = 670) 7.06 K/ L 1.80-8.00 LYMPHOCYTES ABSOLUTE COUNT (BEAKER) (test code = 414) 0.23 K/ L 1.48-4.50 L MONOCYTES ABSOLUTE COUNT (BEAKER) (test code = 415) 0.08 K/ L 0. 00-1.30 EOSINOPHILS ABSOLUTE COUNT (BEAKER) (test code = 416) 0.00 K/ L 0.00-0.50 BASOPHILS ABSOLUTE COUNT (BEAKER) (test code = 417) 0.01 K/ L 0. 00-0.20 IMMATURE GRANULOCYTES-RELATIVE PERCENT (BEAKER) (test code = 2801) 1 % 0-0 H LIPID [id number] 23:58:00* Test Item Value Reference Range Interpretation Comments TRIGLYCERIDES (BEAKER) (test code = 540) 74 mg/dL CHOLESTEROL (BEAKER) (test code = 631) 90 mg/dL HDL CHOLESTEROL (BEAKER) (test code = 976) 32 mg/dL LDL CHOLESTEROL CALCULATED (BEAKER) (test code = 633) 43 mg/dL Triglyceride Reference Range: Low Risk <150 Borderline 150-199 High Risk 200-499 Very High Risk >=500Cholesterol Reference Range: Low Risk <200 Borderline 200-239 High Risk >240HDL Cholesterol Reference Range: Low Risk >=60 High Risk <40LDL Cholesterol Reference Range: Optimal <100 Near Optimal 100-129 Borderline 130-159 High 160-189 Very High >=190 Surgical Territory Manager ID - [id number] 23:54:00* Test Item Value Reference Range Interpretation Comments Magnesium (test code = 99567-0) 2.1 mg/dL 1.5-3 HENRY (test code = HENRY) Surgical Territory Manager ID - BLAINE Lab Interpretation (test code = 41014-1) Normal [facility]anoPhosphorus2020-[facility] 23:54:00* Test Item Value Reference Range Interpretation Comments Phosphorus (test code = 2777-1) 2.5 mg/dL 2.5-4.5 HENRY (test code = HENRY) Surgical Territory Manager ID - BLAINE Lab Interpretation (test code = 83436-1) Normal [facility]anoMAGNESIUM2020-11-20 23:54:00* Test Item Value Reference Range Interpretation Comments MAGNESIUM (BEAKER) (test code = 627) 2.1 mg/dL 1.5-3.0 Surgical Territory Manager ID - [id number] 23:54:00* Test Item Value Reference Range Interpretation Comments PHOSPHORUS (BEAKER) (test code = 604) 2.5 mg/dL 2.5-4.5 Surgical Territory Manager ID - BZLPCBL-crlmt6240-09-20 23:53:00* Test Item Value Reference Range Interpretation Comments D-Dimer, Quant (test code = 63927-3) 1.28 <0.50 MG/L FEU HH HENRY (test code = HENRY) Intended Use: The D-Dimer As say can be used to aid in the diagnosis of Deep Vein Thrombosis (DVT) and Pulmonary Embolism Disease (PED).In patients with low pre-test probability, various studies concerning STA Liatest D-dimer test have reported that with a cutoff value of 0.50 MG/L FEU, the Negative Predictive Value (NPV) regarding the exclusion of thrombosis is within 95-100% range. Lab Interpretation (test code = 01082-2) Abnormal [facility]anoD-[id number] 23:53:00* Test Item Value Reference Range Interpretation Comments D-DIMER QUANTITATIVE (BEAKER) (test code = 671) 1.28 MG/L FEU <0.50 HH Intended Use: The D-Dimer Assay can be used to aid in the diagnosis of Deep Vein Thrombosis (DVT) and Pulmonary Embolism Disease (PED).In patients with low pre- test probability, various studies concerning STA Liatest D-dimer test have repor zhen that with a cutoff value of 0.50 MG/L FEU, the Negative Predictive Value (E COMMERCE MANAGER V) regarding the exclusion of thrombosis is within 95-100% range.Blood gas, [id number] 23:46:00* Test Item Value Reference Range Interpretation Comments pH, Arterial (test code = 2744-1) 7.45 7.35-7.45 pCO2, Arterial (test code = 2019-8) 29 35- 45 mm Hg L pO2, Arterial (test code = 2703-7) 85 80- 90 mm Hg O2 Sat, Arterial (test code = 2708-6) 96.9 % 96-97 HCO3, Arterial (test code = 1960-4) 20 mmol/L 21-29 L Base Excess, Arterial (test code = 1925-7) -2.9 mmol/L -2-3 L Patient Temperature (test code = 8310-5) 37.0 FIO2 (test code = 1819) 100 Lab Interpretation (test code = 20258-0) [facility]normal [facility]anoCalcium, [id number] 23:46:00* Test Item Value Reference Range Interpretation Comments Calcium, Ion (test code = 1994-3) 1.02 mmol/L 1.12-1.27 L pH, Blood (test code = 41717-3) 7.40 Lab Interpretation (test code = 37348-3) Abnormal [facility]anoBLOOD GAS, [id number] 23:46:00* Test Item Value Reference Range Interpretation Comments PH ARTERIAL (BEAKER) (test code = 383) 7.45 7.35-7.45 PCO2 ARTERIAL (BEAKER) (test code = 384) 29 mm Hg 35-45 L PO2 ARTERIAL (BEAKER) (test code = 385) 85 mm Hg 80-90 O2 SATURATION ARTERIAL (BEAKER) (test code = 386) 96.9 % 96.0 -97.0 HCO3 ARTERIAL (BEAKER) (test code = 388) 20 mmol/L 21-29 L BASE EXCESS ARTERIAL (BEAKER) (test code = 387) -2.9 mmol/L -2.0-3 .0 L PATIENT TEMPERATURE (BEAKER) (test code = 1818) 37.0 FIO2 (BEAKER) (test code = 1819) 100.0 CALCIUM, [id number] 23:46:00* Test Item Value Reference Range Interpretation Comments CALCIUM IONIZED (BEAKER) (test code = 698) 1.02 mmol/L 1.12-1.27 L PH, BLOOD (BEAKER) (test code = 1810) 7.40 [id number] 23:41:00* Test Item Value Reference Range Interpretation Comments PTT (test code = 28841-9) 69.0 23.2- 36.1 seconds H Lab Interpretation (test code = 52877-2) Abnormal [facility]anoAPTT2020-[facility]-20 23:41:00* Test Item Value Reference Range Interpretation Comments PARTIAL THROMBOPLASTIN TIME (BEAKER) (test code = 760) 69.0 seconds 23.2-36.1 H Prothrombin time/[id number] 23:38:00* Test Item Value Reference Range Interpretation Comments Protime (test code = 5902-2) 14.2 11.8- 14.4 seconds INR (test code = 6301-6) 1.10 1.20-1.50 L HENRY (test code = HENRY) RECOMMENDED COUMADIN/WARFARI N INR THERAPY RANGESSTANDARD DOSE: 2.0 - 3.0 Includes: PROPHYLAXIS for venous thrombosis, systemic embolization; TREATMENT for venous thrombosis and/or pulmonary embolus.HIGH RISK: Target INR is 2.5-3.5 for patients with mechanical heart valves. Lab Interpretation (test code = 10814-4) Abnormal [facility]anoPROTHROMBIN TIME/[id number] 23:38:00* Test Item Value Reference Range Interpretation Comments PROTIME (BEAKER) (test code = 759) 14.2 seconds 11.8-14.4 INR (BEAKER) (test code = 370) 1.10 1.20-1.50 L RECOMMENDED COUMADIN/WARFARIN INR THERAPY RANGESSTANDARD DOSE: 2.0 - 3.0 Inclu ash: PROPHYLAXIS for venous thrombosis, systemic embolization; TREATMENT for johnny ous thrombosis and/or pulmonary embolus.HIGH RISK: Target INR is 2.5-3.5 for pat ients with mechanical heart valves.Lactic acid, [id number] 23:16:00* Test Item Value Reference Range Interpretation Comments Lactate, Venous (test code = 2872) 1.16 mmol/L 0.5-2.2 Specimen slightly hemolyzed HENRY (test code = HENRY) Surgical Territory Manager ID - [facility] Lab Interpretation (test code = 73267-9) Normal [facility]anoLACTIC ACID, [id number] 23:16:00* Test Item Value Reference Range Interpretation Comments LACTATE BLOOD VENOUS (2) (BEAKER) (test code = 2872) 1.16 mmol/L 0 .50-2.20 Specimen slightly hemolyzed Surgical Territory Manager ID - BLAINERAD, CHEST, 1 VIEW, NON [id number] 22:41:00Reason for exam:->sob/covidShould this be performed at the bedside?->Yes [facility] : 1945 Sex: M FINAL REPORT 46 RAD, CHEST, 1 VIEW, NON DEPT INDICATION: sob/covid COMPARISON: None FINDINGS: Portable frontal view of the chest. IMPRESSION: Nonspecific bilateral patchy airspace disease suggestive of viral infection, including COVID-19 infection, bu t other infectious and noninfectious etiologies are also considerations. No pneu mothorax or significant pleural effusion. The cardiomediastinal silhouette is un remarkable. Intact osseous structures. Signed: Jamar Nicole MDReport Verified Date/Time: 05/03/2020 22:41:33 chest 1 view portable / [id number] 22:41:00Interface, External Ris In - 05/03/2020 10:43 PM CSTFINAL REPORT RAD, CHEST, 1 VIEW, NON DEPT INDICATION: sob/covid COMPARISON: None FINDINGS: Portable frontal view of the chest. IMPRESSION: Nonspecific bilateral patchy airspace disease suggestive of viral infection, including COVID-19 infection, but other infectious and noninfectious etiologies are also considerations. No pneumothorax or significant pleural effusion. The cardiomediastinal silhouette is unremarkable. Intact osseous structures. Signed: Jamar Nicole MDReport Verified Date/Time: 05/03/2020 22:41:33 [facility] [id number] 22:16:00* Test Item Value Reference Range Interpretation Comments POC-Glucose Meter (test code = 1538) 144 mg/dL 70-110 H : Notified RN/MD: TESTED AT [place] [address]: Surgical Territory Manager/Executive Director Of Nursing ID = [id number] for Green, Aidee Lab Interpretation (test code = 11410-6) Abnormal [facility] Oakland[facility]-GLUCOSE [id number] 22:16:00* Test Item Value Reference Range Interpretation Comments POC-GLUCOSE METER (BEAKER) (test code = 1538) 144 mg/dL 70-110 H : Notified RN/MD: TESTED AT [place] [address]: Surgical Territory Manager/Executive Director Of Nursing ID = [id number] for Green, Aidee Blood leukocytes automated count (number/volume)2020-05-03 14:00:00* Test Item Value Reference Range Interpretation Comments White Blood Count (test code = 6690-2) 9.43 10*3/uL 4.8-10.8 [facility] automated count (number/volume)2020-05-03 14:00:00* Test Item Value Reference Range Interpretation Comments Red Blood Count (test code = 789-8) 4.08 10*6/mL 4.3-5.7 [facility] HospitalBlood hemoglobin measurement (moles/volume)2020-05-03 14:00:00* Test Item Value Reference Range Interpretation Comments Hemoglobin (test code = 19964-5) 14.0 g/dL 14.0-18.0 [facility] HospitalAutomated blood hematocrit (volume fraction)2020-05-03 14:00:00* Test Item Value Reference Range Interpretation Comments Hematocrit (test code = 4544-3) 39.0 % 38.2-49.6 [facility] HospitalAutomated erythrocyte mean corpuscular [id number] 14:00:00* Test Item Value Reference Range Interpretation Comments Mean Corpuscular Volume (test code = 787-2) 95.6 81-99 [facility] HospitalAutomated erythrocyte mean corpuscular hemoglobin (mass per erythrocyte)2020-05-03 14:00:00* Test Item Value Reference Range Interpretation Comments Mean Corpuscular Hemoglobin (test code = 785-6) 34.3 pg 28-32 [facility] HospitalAutomated erythrocyte mean corpuscular hemoglobin concentration measurement (mass/volume)2020-05-03 14:00:00* Test Item Value Reference Range Interpretation Comments Mean Corpuscular Hemoglobin Concent (test code = 786-4) 35.9 g/dL 31-35 [facility] HospitalRDW [id number]-[id number] 14:00:00* Test Item Value Reference Range Interpretation Comments Red Cell Distribution Width (test code = 25470-6) 12.7 % 11.7 -14.4 [facility] HospitalAutomated blood platelet count (count/volume)2020-05-03 14:00:00* Test Item Value Reference Range Interpretation Comments Platelet Count (test code = 777-3) 166 10*3/uL 140-360 [facility] HospitalAutomated blood segmented neutrophil count as percentage of total [id number] 14:00:00* Test Item Value Reference Range Interpretation Comments Neutrophils (%) (Auto) (test code = 46432-5) 91.4 % 38.7-80.0 [facility] HospitalAutomated blood lymphocyte count as percentage ot total [id number] 14:00:00* Test Item Value Reference Range Interpretation Comments Lymphocytes (%) (Auto) (test code = 736-9) 5.4 % 18.0-39.1 [facility] HospitalAutomated blood monocyte count as percentage of total txigzccngv5112-60-08 14:00:00* Test Item Value Reference Range Interpretation Comments Monocytes (%) (Auto) (test code = 5905-5) 2.4 % 4.4-11.3 [facility] HospitalAutomated blood eosinophil count as percentage of total qardqfmfye8803-13-94 14:00:00* Test Item Value Reference Range Interpretation Comments Eosinophils (%) (Auto) (test code = 713-8) 0.1 % 0.0-6.0 [facility] HospitalAutomated blood basophil count as percentage of total qkkwgrimdv8445-94-43 14:00:00* Test Item Value Reference Range Interpretation Comments Basophils (%) (Auto) (test code = 706-2) 0.2 % 0.0-1.0 [facility] HospitalFluoroscopic procedure less than one hour [id number] 14:00:00* Test Item Value Reference Range Interpretation Comments IM GRANULOCYTES % (test code = IM GRANULOCYTES %) 0.5 % 0.0- 1.0 [facility] HospitalAutomated blood neutrophil count 2020-05-03 14:00:00* Test Item Value Reference Range Interpretation Comments Neutrophils # (Auto) (test code = 751-8) 8.6 2.1-6.9 [facility] HospitalBlood lymphocytes count (number/volume) 2020-05-03 14:00:00* Test Item Value Reference Range Interpretation Comments Lymphocytes # (Auto) (test code = 88759-3) 0.5 1.0-3.2 [facility] HospitalBlood monocytes automated count (number/volume)2020-05-03 14:00:00* Test Item Value Reference Range Interpretation Comments Monocytes # (Auto) (test code = 742-7) 0.2 0.2-0.8 [facility] HospitalAutomated blood eosinophil count 2020-05-03 14:00:00* Test Item Value Reference Range Interpretation Comments Eosinophils # (Auto) (test code = 711-2) 0.0 0.0-0.4 [facility] HospitalAutomated blood basophil count (count/volume)2020-05-03 14:00:00* Test Item Value Reference Range Interpretation Comments Basophils # (Auto) (test code = 704-7) 0.0 0.0-0.1 [facility] HospitalFluoroscopic procedure less than one hour [id number] 14:00:00* Test Item Value Reference Range Interpretation Comments Absolute Immature Granulocyte (auto (clau t code = Absolute Immature Granulocyte (auto) 0.05 10*3/uL 0-0.1 [facility] HospitalFluoroscopic procedure less than one hour [id number] 14:00:00* Test Item Value Reference Range Interpretation Comments Differential Total Cells Counted (test code = Jose Luis tial Total Cells Counted) 100 [facility]ual [facility]/100 leukocytes 2020-05-03 14:00:00* Test Item Value Reference Range Interpretation Comments Neutrophils % (Manual) (test code = 25417-1) 96 % 40-74 [facility] blood lymphocytes/100 leukocytes 2020-05-03 14:00:00* Test Item Value Reference Range Interpretation Comments Lymphocytes % (Manual) (test code = 737-7) 2 % 19-48 [facility] blood monocytes/100 leukocytes 2020-05-03 14:00:00* Test Item Value Reference Range Interpretation Comments Monocytes % (Manual) (test code = 744-3) 2 % 3.4-9.0 [facility] HospitalBlood platelets count by estimate (number/volume)2020-05-03 14:00:00* Test Item Value Reference Range Interpretation Comments Platelet Estimate (test code = 68054-9) ADEQUATE [facility] HospitalPlatelet bknpuemgkm9762-59-73 14:00:00* Test Item Value Reference Range Interpretation Comments Platelet Morphology Comment (test code = 90923-8) NORMAL [facility] HospitalRBC xyvrifigpj2848-84-96 14:00:00* Test Item Value Reference Range Interpretation Comments Red Cell Morphology Comment (test code = 6742-1) NORMAL [facility] HospitalProthrombin time (PT) in platelet poor plasma by coagulation [id number] 14:00:00* Test Item Value Reference Range Interpretation Comments Prothrombin Time (test code = 5902-2) 13.3 s 11.9-14.5 [facility] HospitalINR in Platelet poor plasma by Coagulation [id number] 14:00:00* Test Item Value Reference Range Interpretation Comments Prothromb Time International Ratio (test code = 6301-6) 0.96 Oral Anticoagulant Therapy INR Values:1. Low Intensity Therapy 1.5 - 2.02 . Moderate Intensity Therapy 2.0 - 3.03. High Intensity Therapy(1) 2.5 - 3. 54. High Intensity Therapy(2) 3.0 - 4.05. Panic Value INR > 5.0 [facility] HospitalActivated partial thromboplastin time (aPTT) in platelet poor plasma by coagulation dzwum5987-35-40 14:00:00* Test Item Value Reference Range Interpretation Comments Activated Partial Thromboplast Time (test code = 34106-7) 65.2 s 23.8-35.5 [facility] sodium measurement (moles/volume)2020-05-03 14:00:00* Test Item Value Reference Range Interpretation Comments Sodium Level (test code = 2951-2) 127 mmol/L 136-145 [facility]um or plasma potassium measurement (moles/volume)2020-05-03 14:00:00* Test Item Value Reference Range Interpretation Comments Potassium Level (test code = 2823-3) 4.3 mmol/L 3.5-5.1 [facility] or plasma chloride measurement (moles/volume)2020-05-03 14:00:00* Test Item Value Reference Range Interpretation Comments Chloride Level (test code = 2075-0) 93 mmol/L 98-107 [facility] HospitalInfluenza virus A and B antigen identification by drjawkipemnskbytwy3889-31-39 14:00:00* Test Item Value Reference Range Interpretation Comments Influenza Virus Types A,B Antigen (test code = 79847-0) NEGATIVE NEGATIVE [facility] or plasma carbon dioxide, total measurement (moles/volume)2020-05-03 14:00:00* Test Item Value Reference Range Interpretation Comments Carbon Dioxide Level (test code = 2028-9) 24 mmol/L 22- [facility]um or plasma anion [id number] 14:00:00* Test Item Value Reference Range Interpretation Comments Anion Gap (test code = 43075-2) 14.3 mmol/L 8-16 [facility]um or plasma urea nitrogen measurement (mass/volume)2020-05-03 14:00:00* Test Item Value Reference Range Interpretation Comments Blood Urea Nitrogen (test code = 3094-0) 13 mg/dL 7- [facility] or plasma creatinine measurement (mass/volume)2020-05-03 14:00:00* Test Item Value Reference Range Interpretation Comments Creatinine (test code = 2160-0) 0.83 mg/dL 0.72-1.25 [facility] urea nitrogen/creatinine mass mhwoz6714-96-68 14:00:00* Test Item Value Reference Range Interpretation Comments BUN/Creatinine Ratio (test code = 3097-3) 16 6- [facility] HospitalEstimated glomerular filtration rate (GFR) shxfikqlpxjba2678-63-23 14:00:00* Test Item Value Reference Range Interpretation Comments Estimat Glomerular Filtration Rate (test code = 491558717) > 60 mL/ min >60 Ranges were taken from the National Kidney Disease Education Program and the [facility] literature.Reference ranges:60 or greater: Wnvaqh26-23 ( for 3 consecutive months): Chronic kidney disease 15 or less: Kidney failureHouston [facility] HospitalGlucose vhdkpzzosxs2996-74-86 14:00:00* Test Item Value Reference Range Interpretation Comments Glucose Level (test code = MRD6654) 114 mg/dL 74-118 [facility] or plasma calcium measurement (mass/volume)2020-05-03 14:00:00* Test Item Value Reference Range Interpretation Comments Calcium Level (test code = 88546-2) 8.1 mg/dL 8.4-10.2 [facility] or plasma total bilirubin measurement (mass/volume)2020-05-03 14:00:00* Test Item Value Reference Range Interpretation Comments Total Bilirubin (test code = 1975-2) 1.4 mg/dL 0.2-1.2 [facility] HospitalFluoroscopic procedure less than one hour rsnnlfsk6029-29-60 14:00:00* Test Item Value Reference Range Interpretation Comments Aspartate Amino Transf (AST/SGOT) (test code = Aspartate Amino Transf (AST/SGOT)) 39 [IU]/L 5-34 [facility] or plasma alanine aminotransferase measurement (enzymatic activity/volume)2020-05-03 14:00:00* Test Item Value Reference Range Interpretation Comments Alanine Aminotransferase (ALT/SGPT) (test code = 1742-6) 23 [IU]/L 0-55 [facility] or plasma protein measurement (mass/volume)2020-05-03 14:00:00* Test Item Value Reference Range Interpretation Comments Total Protein (test code = 2885-2) 7.4 g/dL 6.5-8.1 [facility] or plasma albumin measurement (mass/volume)2020-05-03 14:00:00* Test Item Value Reference Range Interpretation Comments Albumin (test code = 1751-7) 2.9 g/dL 3.5-5.0 [facility] HospitalPlasma globulin measurement (mass/volume) 2020-05-03 14:00:00* Test Item Value Reference Range Interpretation Comments Globulin (test code = 63231-2) 4.5 g/dL 2.3-3.5 [facility] or plasma albumin/globulin mass lgjsx1473-65-91 14:00:00* Test Item Value Reference Range Interpretation Comments Albumin/Globulin Ratio (test code = 1759-0) 0.6 0.8-2.0 [facility] or plasma alkaline phosphatase measurement (enzymatic activity/volume)2020-05-03 14:00:00* Test Item Value Reference Range Interpretation Comments Alkaline Phosphatase (test code = 6768-6) 63 [IU]/L 40-150 [facility] HospitalBNP Tqv-sCis5865-55-20 14:00:00* Test Item Value Reference Range Interpretation Comments B-Type Natriuretic Peptide (test code = 46701-6) 153.7 pg/mL 0-100 [facility] or plasma creatine kinase measurement (enzymatic activity/volume)2020-05-03 14:00:00* Test Item Value Reference Range Interpretation Comments Creatine Kinase (test code = 2157-6) 62 [IU]/L 30-200 [facility] or plasma creatine kinase MB measurement (mass/volume)2020-05-03 14:00:00* Test Item Value Reference Range Interpretation Comments Creatine Kinase MB (test code = 40839-8) 1.00 ng/mL 0-5.0 [facility] HospitalTroponin I measurement by highly sensitive enzyme zzluhwpujmm3859-96-77 14:00:00* Test Item Value Reference Range Interpretation Comments Troponin I (test code = 39167-3) 0.010 ng/mL 0-0.300 [facility] HospitalFluoroscopic procedure less than one hour rexkqhrf4246-48-43 14:00:00* Test Item Value Reference Range Interpretation Comments Coronavirus (PCR) (test code = Coronavirus (PCR)) DETECTED NOTD ETECTED SARS-COV2/RT-PCR CEPHEIDResults are for the detection of SARS-COV-2 RNA. The ROBERTO S-COV-2 RNA is generally detectable in nasopharyngeal swab specimens during the acute phase of infection. Positive results are indicitive of active infection wi SARS-COV-2; clinical correlation with patient history and other diagnostic in formation is necessary to determine patient infection status. Positive results d o not rule out bacterial infection or co-infection with other viruses. The agent detected may not be the definite cause of the disease.The limit of detection fo r this assay is 250 copies/mLThe SARS-CoV-2 test is a rapid, real-time RT-PCR [facility] intended for the qualitative detection of nucleic acid from SARS-CoV-2 in [place] opharyngeal swab specimen collected from individuals suspected of COVID-19 by eir healthcare provider. This test has not been Food and Drug Administration (FD A) cleared or approved and has been authorized by FDA under an Emergency Use Aut horization (EUA). This EUA will be effective until the declaration that circumst ances exist justifying the authorization of the emergency use of in vitro diagno stic test for detection and or diagnosis of COVID-19 is terminated under section 564(b) of the Act, or the the EUA is revoked under 564(g) of the ACT.[facility] SINGLE (PORTABLE)2020-04-28 22:54:[address] [facility] : 1945 Sex: M [place] [address] Patient Name: DAVID TUCKER JR MR #: [id number] : 1945 Age/Sex: 75/M Req #: [id number] Adm Physician: Ordered by: SERA WEINBERG MD Report #: [id number] Location: ER Room/Bed: Procedure: [id number] DX/CHEST SINGLE (PORTABLE) Ex am Date: 04/28/20 Exam Time: 2132 REPORT STATUS: Signed EXAMINATION: CHEST SINGLE (P ORTABLE) INDICATION: Y FEVER, CHEST TIGHTNESS Y COM PARISON: Chest x-ray 09/23/2018 FINDINGS: TUBES and LINES: N one. LUNGS: Low lung volumes. Subtle right mid and left lower basilar haz iness. No consolidations. PLEURA: No pleural effusion or pneumothorax. HEART AND MEDIASTINUM: The cardiomediastinal silhouette is unremarkable. BONES AND SOFT TISSUES: No acute osseous lesion. Soft tissues are unrem arkable. UPPER ABDOMEN: No free air under the diaphragm. IMPRESSION: Subtle right mid and left lower basilar haziness, can be due to atelectasi s or pneumonia. Signed by: Izaiah Sinclair DO on 04/28/2020 10:56 PM Dictated By: IZAIAH SINCLAIR DO 53 Transcribed By: CAROLINE on 04/28/202255 COPY TO: SERA WEINBERG MD Fluoroscopic procedure less than one hour xksimbsp1809-22-26 20:21:00* Test Item Value Reference Range Interpretation Comments Lactic Acid Level (test code = Lactic Acid Level) 1.0 mmol/L 0.5- 2.0 [facility] HospitalUrine color dldiwhiaxiwue5601-18-96 20:09:00* Test Item Value Reference Range Interpretation Comments Urine Color (test code = 5778-6) YELLOW YELLOW [facility] HospitalUrine zmfzltc6129-34-47 20:09:00* Test Item Value Reference Range Interpretation Comments Urine Clarity (test code = 47193-2) CLEAR CLEAR [facility] gravity of Urine by Test strip 2020-04-28 20:09:00* Test Item Value Reference Range Interpretation Comments Urine Specific [place] (test code = 5811-5) 1.020 1.010-1.02 5 [facility] HospitalUrine pH measurement by automated test kmckt9404-84-54 20:09:00* Test Item Value Reference Range Interpretation Comments Urine pH (test code = 54259-8) 8.5 5-7 [facility] HospitalUrine leukocyte esterase detection by fiphyjzo2732-91-53 20:09:00* Test Item Value Reference Range Interpretation Comments Urine Leukocyte Esterase (test code = 5799-2) NEGATIVE NEGATIVE [facility] HospitalUrine nitrite nxzkebuiv9926-45-23 20:09:00* Test Item Value Reference Range Interpretation Comments Urine Nitrite (test code = 93655-8) NEGATIVE NEGATIVE [facility] HospitalUrine protein measurement by test strip (mass/volume)2020-04-28 20:09:00* Test Item Value Reference Range Interpretation Comments Urine Protein (test code = 5804-0) NEGATIVE NEGATIVE [facility] HospitalUrine glucose eenjboszh4246-82-94 20:09:00* Test Item Value Reference Range Interpretation Comments Urine Glucose (UA) (test code = 2349-9) NEGATIVE NEGATIVE [facility] HospitalUrine ketones detection by automated test tmhdr9812-77-44 20:09:00* Test Item Value Reference Range Interpretation Comments Urine Ketones (test code = 17254-9) NEGATIVE NEGATIVE [facility] HospitalUrine urobilinogen measurement by test strip (mass/volume)2020-04-28 20:09:00* Test Item Value Reference Range Interpretation Comments Urine Urobilinogen (test code = 51412-6) 1 mg/dL 0.2-1 [facility] HospitalUrine total bilirubin measurement (mass/volume)2020-04-28 20:09:00* Test Item Value Reference Range Interpretation Comments Urine Bilirubin (test code = 1978-6) NEGATIVE NEGATIVE [facility] HospitalUrine erythrocytes kksdvrkku9198-28-58 20:09:00* Test Item Value Reference Range Interpretation Comments Urine Blood (test code = 53246-4) TRACE NEGATIVE [facility] HospitalAutomated urine sediment leukocyte count by microscopy (number/high power field)2020-04-28 20:09:00* Test Item Value Reference Range Interpretation Comments Urine WBC (test code = 5821-4) 0-5 /[HPF] 0-5 [facility] HospitalErythrocytes detection in urine sediment by light xlcpapbjss7492-22-10 20:09:00* Test Item Value Reference Range Interpretation Comments Urine RBC (test code = 75752-6) 0-5 /[HPF] 0-5 [facility] HospitalBacteria detection in urine sediment by light jivglrurii3030-41-06 20:09:00* Test Item Value Reference Range Interpretation Comments Urine Bacteria (test code = 22547-1) FEW /[HPF] NONE [facility] HospitalEpithelial cells detection in urine sediment by light ugstrflbht1084-72-03 20:09:00* Test Item Value Reference Range Interpretation Comments Urine Epithelial Cells (test code = 14454-2) FEW /[LPF] NONE [facility] HospitalBlood leukocytes automated count (number/volume)2020-04-28 20:03:00* Test Item Value Reference Range Interpretation Comments White Blood Count (test code = 6690-2) 9.15 10*3/uL 4.8-10.8 [facility] erythrocytes automated count (number/volume)2020-04-28 20:03:00* Test Item Value Reference Range Interpretation Comments Red Blood Count (test code = 789-8) 4.10 10*6/mL 4.3-5.7 [facility] HospitalBlood hemoglobin measurement (moles/volume)2020-04-28 20:03:00* Test Item Value Reference Range Interpretation Comments Hemoglobin (test code = 86681-4) 13.9 g/dL 14.0-18.0 [facility] HospitalAutomated blood hematocrit (volume fraction)2020-04-28 20:03:00* Test Item Value Reference Range Interpretation Comments Hematocrit (test code = 4544-3) 39.3 % 38.2-49.6 [facility] HospitalAutomated erythrocyte mean corpuscular iukumq4787-77-91 20:03:00* Test Item Value Reference Range Interpretation Comments Mean Corpuscular Volume (test code = 787-2) 95.9 81-99 [facility] HospitalAutomated erythrocyte mean corpuscular hemoglobin (mass per erythrocyte)2020-04-28 20:03:00* Test Item Value Reference Range Interpretation Comments Mean Corpuscular Hemoglobin (test code = 785-6) 33.9 pg 28-32 [facility] HospitalAutomated erythrocyte mean corpuscular hemoglobin concentration measurement (mass/volume)2020-04-28 20:03:00* Test Item Value Reference Range Interpretation Comments Mean Corpuscular Hemoglobin Concent (test code = 786-4) 35.4 g/dL 31-35 [facility] HospitalRDW SxfFs-Xcc6410-34-15 20:03:00* Test Item Value Reference Range Interpretation Comments Red Cell Distribution Width (test code = 63757-5) 12.7 % 11.7 -14.4 [facility] HospitalAutomated blood platelet count (count/volume)2020-04-28 20:03:00* Test Item Value Reference Range Interpretation Comments Platelet Count (test code = 777-3) 171 10*3/uL 140-360 [facility] HospitalAutomated blood segmented neutrophil count as percentage of total ezsdaqskhv3887-41-01 20:03:00* Test Item Value Reference Range Interpretation Comments Neutrophils (%) (Auto) (test code = 74039-3) 83.6 % 38.7-80.0 [facility] HospitalAutomated blood lymphocyte count as percentage ot total dvizuhnklb3582-95-49 20:03:00* Test Item Value Reference Range Interpretation Comments Lymphocytes (%) (Auto) (test code = 736-9) 9.7 % 18.0-39.1 [facility] HospitalAutomated blood monocyte count as percentage of total ofpjooxrbz3247-50-91 20:03:00* Test Item Value Reference Range Interpretation Comments Monocytes (%) (Auto) (test code = 5905-5) 5.7 % 4.4-11.3 [facility] HospitalAutomated blood eosinophil count as percentage of total vqdnuqedvw5080-78-61 20:03:00* Test Item Value Reference Range Interpretation Comments Eosinophils (%) (Auto) (test code = 713-8) 0.4 % 0.0-6.0 [facility] HospitalAutomated blood basophil count as percentage of total awqmhpthab0135-13-84 20:03:00* Test Item Value Reference Range Interpretation Comments Basophils (%) (Auto) (test code = 706-2) 0.1 % 0.0-1.0 [facility] HospitalFluoroscopic procedure less than one hour vkrgoilo3823-68-57 20:03:00* Test Item Value Reference Range Interpretation Comments IM GRANULOCYTES % (test code = IM GRANULOCYTES %) 0.5 % 0.0- 1.0 [facility] HospitalAutomated blood neutrophil count 2020-04-28 20:03:00* Test Item Value Reference Range Interpretation Comments Neutrophils # (Auto) (test code = 751-8) 7.6 2.1-6.9 [facility] HospitalBlood lymphocytes count (number/volume) 2020-04-28 20:03:00* Test Item Value Reference Range Interpretation Comments Lymphocytes # (Auto) (test code = 96339-6) 0.9 1.0-3.2 [facility] HospitalBlnorthland medical center monocytes automated count (number/volume)2020-04-28 20:03:00* Test Item Value Reference Range Interpretation Comments Monocytes # (Auto) (test code = 742-7) 0.5 0.2-0.8 [facility] HospitalAutomated blood eosinophil count 2020-04-28 20:03:00* Test Item Value Reference Range Interpretation Comments Eosinophils # (Auto) (test code = 711-2) 0.0 0.0-0.4 [facility] HospitalAutomated blood basophil count (count/volume)2020-04-28 20:03:00* Test Item Value Reference Range Interpretation Comments Basophils # (Auto) (test code = 704-7) 0.0 0.0-0.1 [facility] HospitalFluoroscopic procedure less than one hour xoisdxui6360-04-60 20:03:00* Test Item Value Reference Range Interpretation Comments Absolute Immature Granulocyte (auto (clau t code = Absolute Immature Granulocyte (auto) 0.05 10*3/uL 0-0.1 [facility] or plasma sodium measurement (moles/volume)2020-04-28 20:03:00* Test Item Value Reference Range Interpretation Comments Sodium Level (test code = 2951-2) 128 mmol/L 136-145 [facility] or plasma potassium measurement (moles/volume)2020-04-28 20:03:00* Test Item Value Reference Range Interpretation Comments Potassium Level (test code = 2823-3) 3.7 mmol/L 3.5-5.1 [facility] or plasma chloride measurement (moles/volume)2020-04-28 20:03:00* Test Item Value Reference Range Interpretation Comments Chloride Level (test code = 2075-0) 97 mmol/L 98-107 [facility] HospitalInfluenza virus A and B antigen identification by lglseouemcofxjafgd7469-27-96 20:03:00* Test Item Value Reference Range Interpretation Comments Influenza Virus Types A,B Antigen (test code = 69051-9) POSITIVE FLU A NEGATIVE Results called to Tammy at 2040 on 04/28/20 by Jase Luu. RB OK.Result s printed to [id number] in infection control at 2040 on 04/28/20 by Jase forman.[facility] or plasma carbon dioxide, total measurement (moles/volume)2020-04-28 20:03:00* Test Item Value Reference Range Interpretation Comments Carbon Dioxide Level (test code = 2028-9) 22 mmol/L 22- [facility]herum or plasma anion bhh1473-88-87 20:03:00* Test Item Value Reference Range Interpretation Comments Anion Gap (test code = 44904-7) 12.7 mmol/L 8-16 [facility] or plasma urea nitrogen measurement (mass/volume)2020-04-28 20:03:00* Test Item Value Reference Range Interpretation Comments Blood Urea Nitrogen (test code = 3094-0) 13 mg/dL 7-26 [facility] or plasma creatinine measurement (mass/volume)2020-04-28 20:03:00* Test Item Value Reference Range Interpretation Comments Creatinine (test code = 2160-0) 0.80 mg/dL 0.72-1.25 [facility] or plasma urea nitrogen/creatinine mass noblj1365-87-48 20:03:00* Test Item Value Reference Range Interpretation Comments BUN/Creatinine Ratio (test code = 3097-3) 16 6-25 [facility] HospitalEstimated glomerular filtration rate (GFR) ylbzadwrmsgnr1147-84-29 20:03:00* Test Item Value Reference Range Interpretation Comments Estimat Glomerular Filtration Rate (test code = 328340516) > 60 mL/ min >60 Ranges were taken from the National Kidney Disease Education Program and the [facility] literature.Reference ranges:60 or greater: Vomxcq98-03 ( for 3 consecutive months): Chronic kidney disease 15 or less: Kidney failureHouston Methodist Sugar Land HospitalGlucose mjjsenzubbm3459-17-09 20:03:00* Test Item Value Reference Range Interpretation Comments Glucose Level (test code = BST9714) 124 mg/dL 74-118 [facility]um or plasma calcium measurement (mass/volume)2020-04-28 20:03:00* Test Item Value Reference Range Interpretation Comments Calcium Level (test code = 67182-0) 8.5 mg/dL 8.4-10.2 [facility]um or plasma total bilirubin measurement (mass/volume)2020-04-28 20:03:00* Test Item Value Reference Range Interpretation Comments Total Bilirubin (test code = 1975-2) 1.1 mg/dL 0.2-1.2 [facility] HospitalFluoroscopic procedure less than one hour eukaqrlg3106-33-48 20:03:00* Test Item Value Reference Range Interpretation Comments Aspartate Amino Transf (AST/SGOT) (test code = Aspartate Amino Transf (AST/SGOT)) 10 [IU]/L 5-34 [facility] or plasma alanine aminotransferase measurement (enzymatic activity/volume)2020-04-28 20:03:00* Test Item Value Reference Range Interpretation Comments Alanine Aminotransferase (ALT/SGPT) (test code = 1742-6) < 6 [IU]/L 0-55 [facility] or plasma protein measurement (mass/volume)2020-04-28 20:03:00* Test Item Value Reference Range Interpretation Comments Total Protein (test code = 2885-2) 7.9 g/dL 6.5-8.1 [facility] or plasma albumin measurement (mass/volume)2020-04-28 20:03:00* Test Item Value Reference Range Interpretation Comments Albumin (test code = 1751-7) 3.8 g/dL 3.5-5.0 [facility] HospitalPlasma globulin measurement (mass/volume) 2020-04-28 20:03:00* Test Item Value Reference Range Interpretation Comments Globulin (test code = 55888-4) 4.1 g/dL 2.3-3.5 [facility] or plasma albumin/globulin mass beraf4831-22-25 20:03:00* Test Item Value Reference Range Interpretation Comments Albumin/Globulin Ratio (test code = 1759-0) 0.9 0.8-2.0 [facility] or plasma alkaline phosphatase measurement (enzymatic activity/volume)2020-04-28 20:03:00* Test Item Value Reference Range Interpretation Comments Alkaline Phosphatase (test code = 6768-6) 71 [IU]/L 40-150 [facility] or plasma creatine kinase measurement (enzymatic activity/volume)2020-04-28 20:03:00* Test Item Value Reference Range Interpretation Comments Creatine Kinase (test code = 2157-6) 51 [IU]/L 30-200 [facility] or plasma creatine kinase MB measurement (mass/volume)2020-04-28 20:03:00* Test Item Value Reference Range Interpretation Comments Creatine Kinase MB (test code = 18820-5) 0.90 ng/mL 0-5.0 [facility] HospitalTroponin I measurement by highly sensitive enzyme sefrdbvymly4234-52-07 20:03:00* Test Item Value Reference Range Interpretation Comments Troponin I (test code = 24795-2) 0.014 ng/mL 0-0.300 [facility] HospitalBlood ddchnze6088-83-27 20:03:00* Test Item Value Reference Range Interpretation Comments Blood Culture (test code = 36706441) NO GROWTH AFTER 24 HOURS [facility] HospitalMODIFIED BA. WPVNEIH4545-34-90 12:43:00 [facility] [address] [place], [place] [address] Patient Name: DAVID TUCKER JR MR #: [id number] : [birth year] Age/Sex: 74/M Req #: [id number] [facility] Physician: Ordered by: TEN CONTRERAS MD Report #: [id number] Location: DX Room/Bed: Procedure: [id number] DX /MODIFIED BA. SWALLOW Exam Date: 06/16/19 Exam Time: 1103 REPORT STATUS: Signed PROC EDURE: X-RAY MODIFIED BARIUM SWALLOW COMPARISON: None. INDICATION: As piration Radiation Details: Fluoroscopy time: 1.3 minutes Cumulative do se: 4.8 mGy DISCUSSION: Fluoroscopic examination was performed in conjuncti on with speech pathology during swallowing a variety of thin and thick liquid consistencies. Provided images demonstrate no laryngeal penetration or aspirat ion. CONCLUSION: Modified barium swallow demonstrating no laryngeal pen etration or aspiration. Please refer to the speech pathology report for furthe r details. Signed by: Grant Dawson MD on 06/16/2019 12:43 PM Dictated B y: GRANT DAWSON MD [address] scribed By: CAROLINE on 06/16/19 1243 COPY TO: TEN CONTRERAS MD [id number] 12:52:00* Test Item Value Reference Range Interpretation Comments GLUBED (test code = GLUBED) 134 mg/dL 74-106 H Performed by certified trimming machine operator at [facility] MUVCWI9263-59-36 12:52:00* Test Item Value Reference Range Interpretation Comments GLUBED (test code = GLUBED) 135 mg/dL 74-106 H Performed by certified trimming machine operator at [facility] MHAORN2072-60-69 12:52:00* Test Item Value Reference Range Interpretation Comments GLUBED (test code = GLUBED) 153 mg/dL 74-106 H Performed by certified trimming machine operator at [facility] EYCJSL9416-50-29 12:52:00* Test Item Value Reference Range Interpretation Comments GLUBED (test code = GLUBED) 112 mg/dL 74-106 H Performed by certified trimming machine operator at [facility] JQZKGG0467-40-57 12:32:00* Test Item Value Reference Range Interpretation Comments GLUBED (test code = GLUBED) 144 mg/dL 74-106 H Performed by certified trimming machine operator at [facility] BOZQNL0945-69-97 17:02:00* Test Item Value Reference Range Interpretation Comments GLUBED (test code = GLUBED) 133 mg/dL 74-106 H Performed by certified trimming machine operator at [facility] CBC W/AUTO QYQR1683-00-22 08:09:00* Test Item Value Reference Range Interpretation Comments WHITE BLOOD CELL (test code = WBC) 7.9 K/mm3 4.5-12.5 N RED BLOOD CELL (test code = RBC) 3.90 mill/mm3 4.0-5.8 L HEMOGLOBIN (test code = HGB) 12.9 gram/dL 13.0-17.5 L HEMATOCRIT (test code = HCT) 42.4 % 42.0-52.0 N MEAN CELL VOLUME (test code = MCV) 108.7 fL 80-98 H RESULT VERIFIED BY REPEAT ANALYSIS MEAN CELL HGB (test code = MCH) 33.1 picogram 27.0-33.0 H MEAN CELL HGB CONCETRATION (test code = MCHC) 30.4 gram/dL 33.0-36. 0 L RED CELL DISTRIBUTION WIDTH (test code = RDW) 13.3 % 11.6-16. 2 N RED CELL DISTRIBUTION WIDTH SD (test code = RDW-SD) 53.4 fL 37 .0-51.0 H PLATELET COUNT (test code = PLT) 179 K/mm3 150-450 N MEAN PLATELET VOLUME (test code = MPV) 9.5 fL 6.7-11.0 N NEUTROPHIL % (test code = NT%) 65.9 % 39.0-69.0 N IMMATURE GRANULOCYTE % (test code = IG%) 0.4 % 0.0-5.0 N LYMPHOCYTE % (test code = LY%) 23.4 % 25.0-55.0 L MONOCYTE % (test code = MO%) 7.0 % 0.0-10.0 N EOSINOPHIL % (test code = EO%) 2.7 % 0.0-5.0 N BASOPHIL % (test code = BA%) 0.6 % 0.0-1.0 N NUCLEATED RBC % (test code = NRBC%) 0.0 % 0-0 N NEUTROPHIL # (test code = NT#) 5.20 K/mm3 1.8-7.7 N IMMATURE GRANULOCYTE # (test code = IG#) 0.03 x10 3/uL 0-0.03 N LYMPHOCYTE # (test code = LY#) 1.85 K/mm3 1.0-5.0 N MONOCYTE # (test code = MO#) 0.55 K/mm3 0-0.8 N EOSINOPHIL # (test code = EO#) 0.21 K/mm3 0.0-0.5 N BASOPHIL # (test code = BA#) 0.05 K/mm3 0.0-0.2 N NUCLEATED RBC # (test code = NRBC#) 0.00 K/mm3 0.0-0.1 N MANUAL DIFF REQUIRED (test code = MDIFF) NO [id number] 07:10:00* Test Item Value Reference Range Interpretation Comments TROPONIN-I (test code = TROPI) 8.930 ng/mL 0-0.045 HH Results called to PREVIOUS [facility] V.LAB.[facility] 09/28/18 0709 COMPREHENSIVE METABOLIC [id number] 07:05:00* Test Item Value Reference Range Interpretation Comments SODIUM (test code = NA) 136 mmol/L 136-145 N POTASSIUM (test code = K) 3.7 mmol/L 3.5-5.1 N CHLORIDE (test code = CL) 106.0 mmol/L 98-107 N CARBON DIOXIDE (test code = CO2) 23.0 mmol/L 21-32 N ANION GAP (test code = GAP) 10.7 10-20 N GLUCOSE (test code = GLU) 117 mg/dL 74-106 H BLOOD UREA NITROGEN (test code = BUN) 13 mg/dL 7-18 N GLOMERULAR FILTRATION RATE (test code = GFR) > 60 mL/min >=60 Estimated GFR by using Modified MDRD formula.Chronic kidney disease is defined as either kidney damageor GFR <60 mL/min/1.73 m2 for >3 months. CREATININE (test code = CREAT) 0.90 mg/dL 0.7-1.3 N BUN/CREATININE RATIO (test code = BUN/CREA) 14.4 10-20 N TOTAL PROTEIN (test code = PROT) 7.2 gram/dL 6.4-8.2 N ALBUMIN (test code = ALB) 3.1 g/dL 3.4-5.0 L GLOBULIN (test code = GLOB) 4.1 gram/dL 2.7-4.2 N ALBUMIN/GLOBULIN RATIO (test code = A/G) 0.8 0.75-1.50 N CALCIUM (test code = CA) 8.4 mg/dL 8.5-10.1 L BILIRUBIN TOTAL (test code = BILT) 1.60 mg/dL 0.0-1.0 H SGOT/AST (test code = AST) 34 IUnit/L 15-37 N SGPT/ALT (test code = ALT) 22 IUnit/L 12-78 N ALKALINE PHOSPHATASE TOTAL (test code = ALKP) 58 IUnit/L 45-117 N Note change in reference range due to change in reagent. [id number] 07:05:00* Test Item Value Reference Range Interpretation Comments MAGNESIUM (test code = MAG) 2.0 mg/dL 1.8-2.4 N COMPREHENSIVE METABOLIC [id number] 06:50:00* Test Item Value Reference Range Interpretation Comments SODIUM (test code = NA) 136 mmol/L 136-145 N POTASSIUM (test code = K) 3.7 mmol/L 3.5-5.1 N CHLORIDE (test code = CL) 106.0 mmol/L 98-107 N CARBON DIOXIDE (test code = CO2) mmol/L 21-32 ANION GAP (test code = GAP) 10-20 GLUCOSE (test code = GLU) mg/dL 74-106 BLOOD UREA NITROGEN (test code = BUN) mg/dL 7-18 GLOMERULAR FILTRATION RATE (test code = GFR) mL/min >=60 CREATININE (test code = CREAT) mg/dL 0.7-1.3 BUN/CREATININE RATIO (test code = BUN/CREA) 10-20 TOTAL PROTEIN (test code = PROT) gram/dL 6.4-8.2 ALBUMIN (test code = ALB) g/dL 3.4-5.0 GLOBULIN (test code = GLOB) gram/dL 2.7-4.2 ALBUMIN/GLOBULIN RATIO (test code = A/G) 0.75-1.50 CALCIUM (test code = CA) mg/dL 8.5-10.1 BILIRUBIN TOTAL (test code = BILT) mg/dL 0.0-1.0 SGOT/AST (test code = AST) IUnit/L 15-37 SGPT/ALT (test code = ALT) IUnit/L 12-78 ALKALINE PHOSPHATASE TOTAL (test code = ALKP) IUnit/L 45-117 [id number] 06:50:00* Test Item Value Reference Range Interpretation Comments MAGNESIUM (test code = MAG) mg/dL 1.8-2.4 [id number] 15:21:00* Test Item Value Reference Range Interpretation Comments TROPONIN-I (test code = TROPI) 9.210 ng/mL 0-0.045 HH LIPID PROFILE (CORONARY RISK)2018-09-27 11:49:00* Test Item Value Reference Range Interpretation Comments TRIGLYCERIDES (test code = TRIG) 77 mg/dL 20-150 N CHOLESTEROL (test code = CHOL) 113 mg/dL 0-200 N CHOLESTEROL/HDL RATIO (test code = CHOLHDL) 2.0 RATIO 0-4.9 N RISK ASSOCIATED WITH CHOL/HDL RATIOS: Risk Male Female1/2 AVERAGE 3.43 3.27AVERAGE 4.97 4.442X AVERAGE 9.55 7.053X AVERAGE 23.39 11.04 REFERENCE VALUE IS RELATED TO RISK LEVELS ASRECOMMENDED BY THE [facility]. HEART, LUNG, AND BLOOD INST. HDL CHOLESTEROL (test code = HDL) 43 mg/dL 40-60 N LIPOPROTEIN LDL (test code = LDL) 62 mg/dL 100-129 L Reference Interval: mg/dL mmol/L Optimal <100 <2.6Near/above optimal 100-129 2.6- 3.3Borderline High 130-159 3.4-4.1High 160-189 4.1-4.9Very High >=190 >=4.9========= This LDL result is a direct measurement.========= SPECIMEN COMMENTS: If not doneBASIC METABOLIC [id number] 08:04:00* Test Item Value Reference Range Interpretation Comments SODIUM (test code = NA) 137 mmol/L 136-145 N POTASSIUM (test code = K) 3.6 mmol/L 3.5-5.1 N CHLORIDE (test code = CL) 103.0 mmol/L 98-107 N CARBON DIOXIDE (test code = CO2) 26.0 mmol/L 21-32 N ANION GAP (test code = GAP) 11.6 10-20 N GLUCOSE (test code = GLU) 113 mg/dL 74-106 H BLOOD UREA NITROGEN (test code = BUN) 10 mg/dL 7-18 N GLOMERULAR FILTRATION RATE (test code = GFR) > 60 mL/min >=60 Estimated GFR by using Modified MDRD formula.Chronic kidney disease is defined as either kidney damageor GFR <60 mL/min/1.73 m2 for >3 months. CREATININE (test code = CREAT) 0.80 mg/dL 0.7-1.3 N BUN/CREATININE RATIO (test code = BUN/CREA) 12.5 10-20 N CALCIUM (test code = CA) 8.9 mg/dL 8.5-10.1 N PROTHROMBIN [id number] 08:00:00* Test Item Value Reference Range Interpretation Comments PROTHROMBIN TIME PATIENT (test code = PTP) 13.1 seconds 9.0-14.0 N INTERNATIONAL NORMAL RATIO (test code = INR) 1.1 0.8-1.2 N The therapeutic range for oral anticoagulant therapy formost indications is an international normalized ratio (INR)of between 2.0 and 3.0. The recommended therapeutic INRrange for various clinical situations is listed below: Clinical Situation INR range Pulmonary e mbolism treatment (2.0-3.0)Venous thrombosis treatmentVenous thrombosis prophylaxis (high risk surgery)Prevention of systemic embolism from: Acute myocardial infarction Valvular heart disease Atrial fibrillation Mechanical prosthetic heart valves (2.5-3.5) IS PATIENT ON ANTICOAGULANTS? YLIST ANTICOAGULANTS ASPIRINTHROMBOPLASTIN TIME [id number] 08:00:00* Test Item Value Reference Range Interpretation Comments THROMBOPLASTIN TIME PARTIAL (test code = PTT) 64.4 seconds 25.0-36. 5 H IS PATIENT ON ANTICOAGULANTS? YLIST ANTICOAGULANTS ASPIRINBASIC METABOLIC [id number] 07:54:00* Test Item Value Reference Range Interpretation Comments SODIUM (test code = NA) 137 mmol/L 136-145 N POTASSIUM (test code = K) 3.6 mmol/L 3.5-5.1 N CHLORIDE (test code = CL) 103.0 mmol/L 98-107 N CARBON DIOXIDE (test code = CO2) mmol/L 21-32 ANION GAP (test code = GAP) 10-20 GLUCOSE (test code = GLU) mg/dL 74-106 BLOOD UREA NITROGEN (test code = BUN) mg/dL 7-18 GLOMERULAR FILTRATION RATE (test code = GFR) mL/min >=60 CREATININE (test code = CREAT) mg/dL 0.7-1.3 BUN/CREATININE RATIO (test code = BUN/CREA) 10-20 CALCIUM (test code = CA) mg/dL 8.5-10.1 CBC W/AUTO [id number] 07:49:00* Test Item Value Reference Range Interpretation Comments WHITE BLOOD CELL (test code = WBC) 7.5 K/mm3 4.5-12.5 N RED BLOOD CELL (test code = RBC) 4.24 mill/mm3 4.0-5.8 N HEMOGLOBIN (test code = HGB) 14.7 gram/dL 13.0-17.5 N HEMATOCRIT (test code = HCT) 41.2 % 42.0-52.0 L MEAN CELL VOLUME (test code = MCV) 97.2 fL 80-98 N MEAN CELL HGB (test code = MCH) 34.7 picogram 27.0-33.0 H MEAN CELL HGB CONCETRATION (test code = MCHC) 35.7 gram/dL 33.0-36. 0 N RED CELL DISTRIBUTION WIDTH (test code = RDW) 12.9 % 11.6-16. 2 N RED CELL DISTRIBUTION WIDTH SD (test code = RDW-SD) 45.9 fL 37 .0-51.0 N PLATELET COUNT (test code = PLT) 188 K/mm3 150-450 N MEAN PLATELET VOLUME (test code = MPV) 9.5 fL 6.7-11.0 N NEUTROPHIL % (test code = NT%) 67.8 % 39.0-69.0 N IMMATURE GRANULOCYTE % (test code = IG%) 0.3 % 0.0-5.0 N LYMPHOCYTE % (test code = LY%) 22.7 % 25.0-55.0 L MONOCYTE % (test code = MO%) 7.2 % 0.0-10.0 N EOSINOPHIL % (test code = EO%) 1.5 % 0.0-5.0 N BASOPHIL % (test code = BA%) 0.5 % 0.0-1.0 N NUCLEATED RBC % (test code = NRBC%) 0.0 % 0-0 N NEUTROPHIL # (test code = NT#) 5.06 K/mm3 1.8-7.7 N IMMATURE GRANULOCYTE # (test code = IG#) 0.02 x10 3/uL 0-0.03 N LYMPHOCYTE # (test code = LY#) 1.69 K/mm3 1.0-5.0 N MONOCYTE # (test code = MO#) 0.54 K/mm3 0-0.8 N EOSINOPHIL # (test code = EO#) 0.11 K/mm3 0.0-0.5 N BASOPHIL # (test code = BA#) 0.04 K/mm3 0.0-0.2 N NUCLEATED RBC # (test code = NRBC#) 0.00 K/mm3 0.0-0.1 N MANUAL DIFF REQUIRED (test code = MDIFF) NO [id number] 02:37:00* Test Item Value Reference Range Interpretation Comments TROPONIN-I (test code = TROPI) 4.380 ng/mL 0-0.045 Results called to [id number] by VViviLAB.RA1 09/27/18 0237Critical results verified and read back by Nurse? Y COMMENTS TO EMBROIDERY PATTERNMAKER: COLLECT 3 HOURS AFTER PREVIOUS [id number] 00:16:00* Test Item Value Reference Range Interpretation Comments TROPONIN-I (test code = TROPI) 2.820 ng/mL 0-0.045 COMMENTS TO EMBROIDERY PATTERNMAKER: COLLECT 3 HOURS AFTER PREVIOUS [id number] 21:32:00* Test Item Value Reference Range Interpretation Comments GLUBED (test code = GLUBED) 132 mg/dL 74-106 H Performed by certified trimming machine operator at [facility] B-TYPE NATRIURETIC [id number] 15:15:00* Test Item Value Reference Range Interpretation Comments B-TYPE NATRIURETIC PEPTIDE (test code = BNP) 310.10 pgram/mL 0-100 H BASIC METABOLIC [id number] 15:13:00* Test Item Value Reference Range Interpretation Comments SODIUM (test code = NA) 136 mmol/L 136-145 N POTASSIUM (test code = K) 3.6 mmol/L 3.5-5.1 N CHLORIDE (test code = CL) 104.0 mmol/L 98-107 N CARBON DIOXIDE (test code = CO2) 26.0 mmol/L 21-32 N ANION GAP (test code = GAP) 9.6 10-20 L GLUCOSE (test code = GLU) 127 mg/dL 74-106 H BLOOD UREA NITROGEN (test code = BUN) 10 mg/dL 7-18 N GLOMERULAR FILTRATION RATE (test code = GFR) > 60 mL/min >=60 Estimated GFR by using Modified MDRD formula.Chronic kidney disease is defined as either kidney damageor GFR <60 mL/min/1.73 m2 for >3 months. CREATININE (test code = CREAT) 0.80 mg/dL 0.7-1.3 N BUN/CREATININE RATIO (test code = BUN/CREA) 12.5 10-20 N CALCIUM (test code = CA) 8.5 mg/dL 8.5-10.1 N HEPATIC FUNCTION [id number] 15:13:00* Test Item Value Reference Range Interpretation Comments TOTAL PROTEIN (test code = PROT) 8.2 gram/dL 6.4-8.2 N ALBUMIN (test code = ALB) 3.8 g/dL 3.4-5.0 N GLOBULIN (test code = GLOB) 4.4 gram/dL 2.7-4.2 H ALBUMIN/GLOBULIN RATIO (test code = A/G) 0.9 0.75-1.50 N BILIRUBIN TOTAL (test code = BILT) 1.10 mg/dL 0.0-1.0 H BILIRUBIN DIRECT (test code = BILD) 0.29 mg/dL 0.0-0.20 H SGOT/AST (test code = AST) 17 IUnit/L 15-37 N SGPT/ALT (test code = ALT) 19 IUnit/L 12-78 N ALKALINE PHOSPHATASE TOTAL (test code = ALKP) 64 IUnit/L 45-117 N Note change in reference range due to change in reagent. [id number] 15:13:00* Test Item Value Reference Range Interpretation Comments LIPASE (test code = LIP) 108 U/L 73.0-393.0 N [id number] 15:13:00* Test Item Value Reference Range Interpretation Comments MAGNESIUM (test code = MAG) 2.0 mg/dL 1.8-2.4 N [id number] 15:13:00* Test Item Value Reference Range Interpretation Comments TROPONIN-I (test code = TROPI) 1.150 ng/mL 0-0.045 HH Results called to [id number] by V.LAB[facility] 09/26/18 1511Critical results verified and read back by Nurse? Y BASIC METABOLIC [id number] 14:58:00* Test Item Value Reference Range Interpretation Comments SODIUM (test code = NA) 136 mmol/L 136-145 N POTASSIUM (test code = K) 3.6 mmol/L 3.5-5.1 N CHLORIDE (test code = CL) 104.0 mmol/L 98-107 N CARBON DIOXIDE (test code = CO2) mmol/L 21-32 ANION GAP (test code = GAP) 10-20 GLUCOSE (test code = GLU) mg/dL 74-106 BLOOD UREA NITROGEN (test code = BUN) mg/dL 7-18 GLOMERULAR FILTRATION RATE (test code = GFR) mL/min >=60 CREATININE (test code = CREAT) mg/dL 0.7-1.3 BUN/CREATININE RATIO (test code = BUN/CREA) 10-20 CALCIUM (test code = CA) mg/dL 8.5-10.1 HEPATIC FUNCTION [id number] 14:58:00* Test Item Value Reference Range Interpretation Comments TOTAL PROTEIN (test code = PROT) gram/dL 6.4-8.2 ALBUMIN (test code = ALB) g/dL 3.4-5.0 GLOBULIN (test code = GLOB) gram/dL 2.7-4.2 ALBUMIN/GLOBULIN RATIO (test code = A/G) 0.75-1.50 BILIRUBIN TOTAL (test code = BILT) mg/dL 0.0-1.0 BILIRUBIN DIRECT (test code = BILD) mg/dL 0.0-0.20 SGOT/AST (test code = AST) IUnit/L 15-37 SGPT/ALT (test code = ALT) IUnit/L 12-78 ALKALINE PHOSPHATASE TOTAL (test code = ALKP) IUnit/L 45-117 [id number] 14:58:00* Test Item Value Reference Range Interpretation Comments LIPASE (test code = LIP) U/L 73.0-393.0 [id number] 14:58:00* Test Item Value Reference Range Interpretation Comments MAGNESIUM (test code = MAG) mg/dL 1.8-2.4 [id number] 14:58:00* Test Item Value Reference Range Interpretation Comments TROPONIN-I (test code = TROPI) ng/mL 0-0.045 - XR CHEST 1 [id number] 14:56:00 FAX: Sanaz Mann MD [phone] [place]: B St: REG Name: DAVID YORK JR [facility] : [birth year] Age/S: 73/M [address] Unit #: [id number] Loc: [place] [address] Phys: Sanaz Mann MD Acct: [id number] Dis Date: Status: REG ER PHONE #: [phone] Exam Date: 09/26/2018 1441 FAX #: [phone] Reason: CHEST PAIN EXAMS: CPT CODE: [id number] XR CHEST 1 V [id number] REASON FOR EXAM: CHEST BE N EXAM ORDER DATE: 09/26/2018 2:14 PM Ordering M.Tad: Sanaz Mann MD PROCEDURE: - XR CHEST 1 V COM PARISON: FINDINGS: Portable AP frontal view of the chest obtained at 2:41 PM shows clear lungs without evidence of consolidation. There is no evidence of effusion. The heart size is within normal limits. Pul monary vasculatures are unremarkable. IMPRESSION: No active dis ease. at 2318 Reported and signed by: Jose Rowell M.D. CC: Sanaz Mann MD Technologist: Jason De La Fuente RT(R); STUDENT TECHNOLOGIST Trnscrd Date/Time/By: 019 (7933) : By: LuluVTL Orig Print D/T: S: 09/26/2018 (9564) PAGE 1 Signed Report PROTHROMBIN [id number] 14:51:00* Test Item Value Reference Range Interpretation Comments PROTHROMBIN TIME PATIENT (test code = PTP) 12.6 seconds 9.0-14.0 N INTERNATIONAL NORMAL RATIO (test code = INR) 1.1 0.8-1.2 N The therapeutic range for oral anticoagulant therapy formost indications is an international normalized ratio (INR)of between 2.0 and 3.0. The recommended therapeutic INRrange for various clinical situations is listed below: Clinical Situation INR range Pulmonary e mbolism treatment (2.0-3.0)Venous thrombosis treatmentVenous thrombosis prophylaxis (high risk surgery)Prevention of systemic embolism from: Acute myocardial infarction Valvular heart disease Atrial fibrillation Mechanical prosthetic heart valves (2.5-3.5) IS PATIENT ON ANTICOAGULANTS? NTHROMBOPLASTIN TIME [id number] 14:51:00* Test Item Value Reference Range Interpretation Comments THROMBOPLASTIN TIME PARTIAL (test code = PTT) 66.6 seconds 25.0-36. 5 H IS PATIENT ON ANTICOAGULANTS? NCBC W/O [id number] 14:35:00* Test Item Value Reference Range Interpretation Comments WHITE BLOOD CELL (test code = WBC) 5.0 K/mm3 4.5-12.5 N RED BLOOD CELL (test code = RBC) 4.29 mill/mm3 4.0-5.8 N HEMOGLOBIN (test code = HGB) 14.4 gram/dL 13.0-17.5 N HEMATOCRIT (test code = HCT) 42.7 % 42.0-52.0 N MEAN CELL VOLUME (test code = MCV) 99.5 fL 80-98 H MEAN CELL HGB (test code = MCH) 33.6 picogram 27.0-33.0 H MEAN CELL HGB CONCETRATION (test code = MCHC) 33.7 gram/dL 33.0-36. 0 N RED CELL DISTRIBUTION WIDTH (test code = RDW) 12.9 % 11.6-16. 2 N PLATELET COUNT (test code = PLT) 175 K/mm3 150-450 N MEAN PLATELET VOLUME (test code = MPV) 9.3 fL 6.7-11.0 N CBC W/O [id number] 14:34:00* Test Item Value Reference Range Interpretation Comments WHITE BLOOD CELL (test code = WBC) K/mm3 4.5-12.5 RED BLOOD CELL (test code = RBC) mill/mm3 4.0-5.8 HEMOGLOBIN (test code = HGB) 14.4 gram/dL 13.0-17.5 N HEMATOCRIT (test code = HCT) 42.7 % 42.0-52.0 N MEAN CELL VOLUME (test code = MCV) fL 80-98 MEAN CELL HGB (test code = MCH) picogram 27.0-33.0 MEAN CELL HGB CONCETRATION (test code = MCHC) gram/dL 33.0-36. 0 RED CELL DISTRIBUTION WIDTH (test code = RDW) % 11.6-16. 2 PLATELET COUNT (test code = PLT) K/mm3 150-450 MEAN PLATELET VOLUME (test code = MPV) fL 6.7-11.0 Stress Test - Treadmill [id number] 08:58:00 [place] [address] Patient Name : DAVID TUCKER JR MR #: [id number] : 1945 Age/Sex: 73/M Adm Physician : ELOINA ANGEL MD Admit Date : 09/23/18 Location : [facility] Room/Bed : [place] [address] REPORT: Myoview Stress Test DATE OF STUDY: 09/23/2018 08:29:00 Stress Test - Treadmil l ONLY INDICATION: Chest pain. DESCRIPTION OF PROCEDURE: After inf ormed consent, the patient was brought to the stress lab. He was given 11 mCi of technetium-99m Myoview and myocardial perfusion SPECT images obtained in t he horizontal long axis and short axis and vertical long axis views. Subseque ntly, the patient was given 28.1 mCi of technetium-99m Myoview and myocardial perfusion SPECT images obtained in horizontal long and short axis and vertical l rashid axis. Gated images were also obtained. The patient tolerated the procedu re without any complication. REPORT: Baseline EKG shows sinus rhythm a t 80 beats per minute, normal axis. Right bundle branch block. ST depression V4 to V6. Parameters: 1. Resting heart rate is 80 beats per minute. 2. Maximum heart rate is 104 beats per minute. 3. Resting blood pressure is 12 6/71 mmHg. 4. Maximum blood pressure 140/77 mmHg. REASON FOR TERMINATION : End point attained. INTERPRETATION: 1. Negative for chest pain. 2 . Negative for arrhythmias. 3. Blood pressure response consistent with Lexisca n. 4. More prominent ST depression noted during stress compared to baseline. 5. Analysis of SPECT images reveals ezwdf-uq-thjvoncj area of decreased radiois otope uptake in the anterior apical and septal ramos, which reverses partially in the septal wall. CONCLUSION: The study demonstrates small-to moder ate area of anteroapical infarction. There is a small area of septal ischemia. Hypokinesis of the anteroapical wall is noted. Overall ejection fract ion is 39%. Camilo Marroquin MD MD/JOANNA Job #: [id number] Signature Date Dictated By: CAMILO Purvis MD Transcribed By: JOANNA on 09/26/18 <Electronically signed by CAMILO MARROQUIN MD><<Signature on File>>09/27/18 1253 COPY TO: Bedside Glucose 2018-09-24 16:04:00* Test Item Value Reference Range Interpretation Comments Bedside Glucose (test code = 70928-7) 124 70-120 H Meter ID: [id number] [facility] Glucose 2018-09-24 16:04:00* Test Item Value Reference Range Interpretation Comments Bedside Glucose (test code = 12485-1) 124 70-120 H Meter ID: [id number] [facility] Glucose 2018-09-24 16:04:00* Test Item Value Reference Range Interpretation Comments Bedside Glucose (test code = 43118-1) 124 70-120 H Meter ID: [id number] [facility] Glucose 2018-09-24 16:04:00* Test Item Value Reference Range Interpretation Comments Bedside Glucose (test code = 22989-3) 124 70-120 H Meter ID: [id number] [facility] Glucose 2018-09-24 16:04:00* Test Item Value Reference Range Interpretation Comments Bedside Glucose (test code = 23486-4) 124 70-120 H Meter ID: [id number] [facility] Healthcare System Glucose 2018-09-24 16:04:00* Test Item Value Reference Range Interpretation Comments Bedside Glucose (test code = 76155-1) 124 70-120 H Meter ID: [id number] [facility] Healthcare System Glucose 2018-09-24 12:30:00* Test Item Value Reference Range Interpretation Comments Bedside Glucose (test code = 35721-1) 121 70-120 H Meter ID: [id number] [facility] HospitalTriglycerides Level 2018-09-24 06:12:00* Test Item Value Reference Range Interpretation Comments Triglycerides Level (test code = 2571-8) 85 0-149 [facility] [id number] 06:12:00* Test Item Value Reference Range Interpretation Comments Cholesterol Level (test code = 2093-3) 90 0-199 Less than 200 mg/dL Low Ggzo811 - 239 mg/dL Borderline Njtv491 m g/dl and greater High Risk [facility] HospitalLDL Prtozwmcfek9428-19-35 06:12:00* Test Item Value Reference Range Interpretation Comments LDL Cholesterol (test code = 2089-1) 38 60-130 L [facility] HospitalHDL Uexyoaricyw4807-86-93 06:12:00* Test Item Value Reference Range Interpretation Comments HDL Cholesterol (test code = 2085-9) 35 40-60 L [facility]Ch[facility]/HDL [id number] 06:12:00 * Test Item Value Reference Range Interpretation Comments Cholesterol/HDL Ratio (test code = 9830-1) 2.6 3.9-4.7 L [facility] HospitalTriglycerides Jkhbg5479-05-16 06:12:00* Test Item Value Reference Range Interpretation Comments Triglycerides Level (test code = 2571-8) 85 0-149 [facility] Ehhfa2008-06-24 06:12:00* Test Item Value Reference Range Interpretation Comments Cholesterol Level (test code = 2093-3) 90 0-199 Less than 200 mg/dL Low Wgzf581 - 239 mg/dL Borderline Osim240 m g/dl and greater High Risk [facility] HospitalLDL Wvkuvymrbia8243-99-14 06:12:00* Test Item Value Reference Range Interpretation Comments LDL Cholesterol (test code = 2089-1) 38 60-130 L [facility] Fjrpwnneywd3914-60-48 06:12:00* Test Item Value Reference Range Interpretation Comments HDL Cholesterol (test code = 2085-9) 35 40-60 L [facility]/HDL Wujuz9936-11-24 06:12:00 * Test Item Value Reference Range Interpretation Comments Cholesterol/HDL Ratio (test code = 9830-1) 2.6 3.9-4.7 L [facility] HospitalTriglycerides Zfjza2421-04-54 06:12:00* Test Item Value Reference Range Interpretation Comments Triglycerides Level (test code = 2571-8) 85 0-149 [facility] Kpzga3676-74-89 06:12:00* Test Item Value Reference Range Interpretation Comments Cholesterol Level (test code = 2093-3) 90 0-199 Less than 200 mg/dL Low Tdwu271 - 239 mg/dL Borderline Kcij306 m g/dl and greater High Risk [facility] HospitalLDL Kqgylmlulek0041-61-13 06:12:00* Test Item Value Reference Range Interpretation Comments LDL Cholesterol (test code = 2089-1) 38 60-130 L [facility] Vjkrgpqxcau7858-95-57 06:12:00* Test Item Value Reference Range Interpretation Comments HDL Cholesterol (test code = 2085-9) 35 40-60 L [facility] Pcyll9773-27-38 06:12:00 * Test Item Value Reference Range Interpretation Comments Cholesterol/HDL Ratio (test code = 9830-1) 2.6 3.9-4.7 L [facility] [id number] 06:12:00* Test Item Value Reference Range Interpretation Comments Triglycerides Level (test code = 2571-8) 85 0-149 [facility] [id number] 06:12:00* Test Item Value Reference Range Interpretation Comments Cholesterol Level (test code = 2093-3) 90 0-199 Less than 200 mg/dL Low Uvyh572 - 239 mg/dL Borderline Xyhn401 m g/dl and greater [facility] Poqlgkjixbl1187-71-89 06:12:00* Test Item Value Reference Range Interpretation Comments LDL Cholesterol (test code = 2089-1) 38 60-130 [facility] Aswomofttlw6667-29-56 06:12:00* Test Item Value Reference Range Interpretation Comments HDL Cholesterol (test code = 2085-9) 35 40-60 L [facility] Qkgwe8912-43-04 06:12:00 * Test Item Value Reference Range Interpretation Comments Cholesterol/HDL Ratio (test code = 9830-1) 2.6 3.9-4.7 L [facility] Ylhad6581-02-53 06:12:00* Test Item Value Reference Range Interpretation Comments Triglycerides Level (test code = 2571-8) 85 0-149 [facility] Ujrqq0478-02-87 06:12:00* Test Item Value Reference Range Interpretation Comments Cholesterol Level (test code = 2093-3) 90 0-199 Less than 200 mg/dL Low Tnje371 - 239 mg/dL Borderline Ysxj475 m g/dl and greater [facility] Jomsgwyuxzg5243-08-83 06:12:00* Test Item Value Reference Range Interpretation Comments LDL Cholesterol (test code = 2089-1) 38 60-130 [facility] Cupylnyrtkx6443[facility]17-28 06:12:00* Test Item Value Reference Range Interpretation Comments HDL Cholesterol (test code = 2085-9) 35 40-60 L [facility] Bmrep3006-37-03 06:12:00 * Test Item Value Reference Range Interpretation Comments Cholesterol/HDL Ratio (test code = 9830-1) 2.6 3.9-4.7 L [facility] Vjkkz8398-93-09 06:12:00* Test Item Value Reference Range Interpretation Comments Triglycerides Level (test code = 2571-8) 85 0-149 [facility] Vfhly4222-07-95 06:12:00* Test Item Value Reference Range Interpretation Comments Cholesterol Level (test code = 2093-3) 90 0-199 Less than 200 mg/dL Low Ekpm403 - 239 mg/dL Borderline Tpsm542 m g/dl and greater High Risk [facility] HospitalLDL Avnkioofbru6456-07-72 06:12:00* Test Item Value Reference Range Interpretation Comments LDL Cholesterol (test code = 2089-1) 38 60-130 L [facility] Igzxaeslwkk9946-88-68 06:12:00* Test Item Value Reference Range Interpretation Comments HDL Cholesterol (test code = 2085-9) 35 40-60 L [facility] Boqvr7886-28-24 06:12:00 * Test Item Value Reference Range Interpretation Comments Cholesterol/HDL Ratio (test code = 9830-1) 2.6 3.9-4.7 L [facility]Tr[facility] Blven9643-59-31 06:12:00* Test Item Value Reference Range Interpretation Comments Triglycerides Level (test code = 2571-8) 85 0-149 [facility] Iuwvo6421-47-84 06:12:00* Test Item Value Reference Range Interpretation Comments Cholesterol Level (test code = 2093-3) 90 0-199 Less than 200 mg/dL Low Zkqz834 - 239 mg/dL Borderline Wyej970 m g/dl and greater High Risk [facility]LDL Hkebmyrfwqi6355-71-93 06:12:00* Test Item Value Reference Range Interpretation Comments LDL Cholesterol (test code = 2089-1) 38 60-130 L [facility] Wblgdofterw8461-03-84 06:12:00* Test Item Value Reference Range Interpretation Comments HDL Cholesterol (test code = 2085-9) 35 40-60 L [facility] Wrejz1460-54-67 06:12:00 * Test Item Value Reference Range Interpretation Comments Cholesterol/HDL Ratio (test code = 9830-1) 2.6 3.9-4.7 L [facility]Creatine Kinase FJ7424-52-58 17:14:00* Test Item Value Reference Range Interpretation Comments Creatine Kinase MB (test code = 94220-6) 2.90 0-5.0 [place] 47116019-04-12 17:14:00* Test Item Value Reference Range Interpretation Comments Troponin I (test code = QII9498) 0.539 0-0.300 H [facility]Creat[facility] Kinase FJ7596-91-51 17:14:00* Test Item Value Reference Range Interpretation Comments Creatine Kinase MB (test code = 35740-8) 2.90 0-5.0 [place] 47116019-04-12 17:14:00* Test Item Value Reference Range Interpretation Comments Troponin I (test code = CTJ7784) 0.539 0-0.300 H [facility]Creat[facility] Kinase ZP0268-93-23 17:14:00* Test Item Value Reference Range Interpretation Comments Creatine Kinase MB (test code = 60279-0) 2.90 0-5.0 [place] 47116019-04-12 17:14:00* Test Item Value Reference Range Interpretation Comments Troponin I (test code = YAP2705) 0.539 0-0.300 H [facility]Creat[facility] Kinase CW7431-47-81 17:14:00* Test Item Value Reference Range Interpretation Comments Creatine Kinase MB (test code = 60598-3) 2.90 0-5.0 [place] 47116019-04-12 17:14:00* Test Item Value Reference Range Interpretation Comments Troponin I (test code = MSW4977) 0.539 0-0.300 H [facility] Kinase UW1916-67-73 17:14:00* Test Item Value Reference Range Interpretation Comments Creatine Kinase MB (test code = 02731-5) 2.90 0-5.0 [place] 47116019-04-12 17:14:00* Test Item Value Reference Range Interpretation Comments Troponin I (test code = PMO4262) 0.539 0-0.300 H [facility]Creat[facility] Kinase WO4272-78-36 17:14:00* Test Item Value Reference Range Interpretation Comments Creatine Kinase MB (test code = 42083-6) 2.90 0-5.0 [place] 47116019-04-12 17:14:00* Test Item Value Reference Range Interpretation Comments Troponin I (test code = FHQ2124) 0.539 0-0.300 H [facility] Kinase AP8651-59-21 17:14:00* Test Item Value Reference Range Interpretation Comments Creatine Kinase MB (test code = 24380-3) 2.90 0-5.0 [place] 47116019-04-12 17:14:00* Test Item Value Reference Range Interpretation Comments Troponin I (test code = KWH5391) 0.539 0-0.300 H [facility] HospitalCreatine Slayri7303-11-28 17:07:00* Test Item Value Reference Range Interpretation Comments Creatine Kinase (test code = 2157-6) 95 30-200 [facility]Creat[facility] Rkwtrx1856-89-50 17:07:00* Test Item Value Reference Range Interpretation Comments Creatine Kinase (test code = 2157-6) 95 30-200 [facility]Creat[facility] Rupgar3589-46-13 17:07:00* Test Item Value Reference Range Interpretation Comments Creatine Kinase (test code = 2157-6) 95 30-200 [facility]Creat[facility] Mnbunv1823-37-72 17:07:00* Test Item Value Reference Range Interpretation Comments Creatine Kinase (test code = 2157-6) 95 30-200 [facility]Creat[facility] Yverbx3800-85-04 17:07:00* Test Item Value Reference Range Interpretation Comments Creatine Kinase (test code = 2157-6) 95 30-200 [facility]Creat[facility] Xlvzsf1789-92-96 17:07:00* Test Item Value Reference Range Interpretation Comments Creatine Kinase (test code = 2157-6) 95 30-200 [facility] Ruddxu1282-67-58 17:07:00* Test Item Value Reference Range Interpretation Comments Creatine Kinase (test code = 2157-6) 95 30-200 [facility] HospitalU[facility] LIX6554-13-05 01:44:00* Test Item Value Reference Range Interpretation Comments Urine WBC (test code = 5821-4) 0-5 0-5 [facility] KWT4577-15-07 01:44:00* Test Item Value Reference Range Interpretation Comments Urine RBC (test code = 19845-4) 0-5 0-5 [facility] Fddxsxps5934-59-24 01:44:00* Test Item Value Reference Range Interpretation Comments Urine Bacteria (test code = 69435-0) NONE NONE [facility] Epithelial Wwuwq4425-52-87 01:44:00 * Test Item Value Reference Range Interpretation Comments Urine Epithelial Cells (test code = 42158-6) FEW NONE [facility] UAQ1124-77-00 01:44:00* Test Item Value Reference Range Interpretation Comments Urine WBC (test code = 5821-4) 0-5 0-5 [facility] KIF8614-88-56 01:44:00* Test Item Value Reference Range Interpretation Comments Urine RBC (test code = 19486-4) 0-5 0-5 [facility] Dosdhylo4372-48-54 01:44:00* Test Item Value Reference Range Interpretation Comments Urine Bacteria (test code = 50809-3) NONE NONE [facility] Epithelial Qjmlu7629-29-29 01:44:00 * Test Item Value Reference Range Interpretation Comments Urine Epithelial Cells (test code = 06116-9) FEW NONE [facility] TUE5114-83-38 01:44:00* Test Item Value Reference Range Interpretation Comments Urine WBC (test code = 5821-4) 0-5 0-5 [facility] YWW9192-24-40 01:44:00* Test Item Value Reference Range Interpretation Comments Urine RBC (test code = 92431-0) 0-5 0-5 [facility] Njwbsafh2463-20-88 01:44:00* Test Item Value Reference Range Interpretation Comments Urine Bacteria (test code = 81700-1) NONE NONE [facility] Epithelial Dnxgx9980-45-10 01:44:00 * Test Item Value Reference Range Interpretation Comments Urine Epithelial Cells (test code = 02831-8) FEW NONE [facility] BKV7391-02-53 01:44:00* Test Item Value Reference Range Interpretation Comments Urine WBC (test code = 5821-4) 0-5 0-5 [facility] YUP4847-50-38 01:44:00* Test Item Value Reference Range Interpretation Comments Urine RBC (test code = 69469-5) 0-5 0-5 [facility] Jcfecvyh0998-69-83 01:44:00* Test Item Value Reference Range Interpretation Comments Urine Bacteria (test code = 53325-7) NONE NONE [facility] Ep[facility]helial Tlsfp1971-40-75 01:44:00 * Test Item Value Reference Range Interpretation Comments Urine Epithelial Cells (test code = 37940-4) FEW NONE [facility] EVM3906-83-96 01:44:00* Test Item Value Reference Range Interpretation Comments Urine WBC (test code = 5821-4) 0-5 0-5 [facility] JED8281-36-05 01:44:00* Test Item Value Reference Range Interpretation Comments Urine RBC (test code = 95847-1) 0-5 0-5 [facility] Rtkehllo3491-66-73 01:44:00* Test Item Value Reference Range Interpretation Comments Urine Bacteria (test code = 09127-5) NONE NONE [facility] Epithelial Otace3058-17-85 01:44:00 * Test Item Value Reference Range Interpretation Comments Urine Epithelial Cells (test code = 26310-9) FEW NONE [facility] LLE7910-33-80 01:44:00* Test Item Value Reference Range Interpretation Comments Urine WBC (test code = 5821-4) 0-5 0-5 [facility] JHA3183-55-70 01:44:00* Test Item Value Reference Range Interpretation Comments Urine RBC (test code = 49945-2) 0-5 0-5 [facility] Uhizjqhk1563-53-66 01:44:00* Test Item Value Reference Range Interpretation Comments Urine Bacteria (test code = 13702-2) NONE NONE [facility] Epithelial Gqzfp5882-92-90 01:44:00 * Test Item Value Reference Range Interpretation Comments Urine Epithelial Cells (test code = 36089-9) FEW NONE [facility] GCE6987-98-60 01:44:00* Test Item Value Reference Range Interpretation Comments Urine WBC (test code = 5821-4) 0-5 0-5 [facility] QBW9183-39-01 01:44:00* Test Item Value Reference Range Interpretation Comments Urine RBC (test code = 01436-8) 0-5 0-5 [facility] Uzuweluw9538-32-71 01:44:00* Test Item Value Reference Range Interpretation Comments Urine Bacteria (test code = 38155-5) NONE NONE [facility] Epithelial Bgzcz3423-23-58 01:44:00 * Test Item Value Reference Range Interpretation Comments Urine Epithelial Cells (test code = 86300-6) FEW NONE [facility] Kzupk2083-03-87 01:40:00* Test Item Value Reference Range Interpretation Comments Urine Color (test code = 5778-6) YELLOW YELLOW [facility] Budilmv0343-64-72 01:40:00* Test Item Value Reference Range Interpretation Comments Urine Clarity (test code = 93785-6) CLEAR CLEAR [facility] Specific Nzcqvlb2498-95-30 01:40:00 * Test Item Value Reference Range Interpretation Comments Urine Specific [place] (test code = 5811-5) 1.005 1.010-1.02 5 L [facility] aZ9813-49-42 01:40:00* Test Item Value Reference Range Interpretation Comments Urine pH (test code = 43401-1) 7 5-7 [facility] Leukocyte Tatirjbd9763-26-39 01:40:00* Test Item Value Reference Range Interpretation Comments Urine Leukocyte Esterase (test code = 5799-2) NEGATIVE NEGATIVE [facility] Sywugkk8574-60-10 01:40:00* Test Item Value Reference Range Interpretation Comments Urine Nitrite (test code = 16601-0) NEGATIVE NEGATIVE [facility] Zzbncvn0630-05-70 01:40:00* Test Item Value Reference Range Interpretation Comments Urine Protein (test code = 5804-0) NEGATIVE NEGATIVE [facility] Glucose (UA)2018-09-23 01:40:00* Test Item Value Reference Range Interpretation Comments Urine Glucose (UA) (test code = 2349-9) NEGATIVE NEGATIVE [facility] Lgetkqh8844-99-07 01:40:00* Test Item Value Reference Range Interpretation Comments Urine Ketones (test code = 27169-0) NEGATIVE NEGATIVE [facility] Nvbubedebbgv2839-48-65 01:40:00* Test Item Value Reference Range Interpretation Comments Urine Urobilinogen (test code = 55276-5) 0.2 0.2-1 [facility] Djpvrutkc7103-88-47 01:40:00* Test Item Value Reference Range Interpretation Comments Urine Bilirubin (test code = 1978-6) NEGATIVE NEGATIVE [facility] Afgsf8945-10-12 01:40:00* Test Item Value Reference Range Interpretation Comments Urine Blood (test code = 91508-3) NEGATIVE NEGATIVE [facility] Pvcqr5917-43-24 01:40:00* Test Item Value Reference Range Interpretation Comments Urine Color (test code = 5778-6) YELLOW YELLOW [facility] Cxzzgvu0097-75-48 01:40:00* Test Item Value Reference Range Interpretation Comments Urine Clarity (test code = 43055-2) CLEAR CLEAR [facility] Specific Epocbaj8370-19-08 01:40:00 * Test Item Value Reference Range Interpretation Comments Urine Specific [place] (test code = 5811-5) 1.005 1.010-1.02 5 L [facility] gM1913-67-98 01:40:00* Test Item Value Reference Range Interpretation Comments Urine pH (test code = 47806-8) 7 5-7 [facility] Leukocyte Nylrivmt4722-14-62 01:40:00* Test Item Value Reference Range Interpretation Comments Urine Leukocyte Esterase (test code = 5799-2) NEGATIVE NEGATIVE [facility] Rggoreq5830-39-87 01:40:00* Test Item Value Reference Range Interpretation Comments Urine Nitrite (test code = 03373-5) NEGATIVE NEGATIVE [facility] Dpffznl6891-74-17 01:40:00* Test Item Value Reference Range Interpretation Comments Urine Protein (test code = 5804-0) NEGATIVE NEGATIVE [facility] Glucose (UA)2018-09-23 01:40:00* Test Item Value Reference Range Interpretation Comments Urine Glucose (UA) (test code = 2349-9) NEGATIVE NEGATIVE [facility] Xctlnxi4764-83-78 01:40:00* Test Item Value Reference Range Interpretation Comments Urine Ketones (test code = 69172-0) NEGATIVE NEGATIVE [facility] Thbibbqusbva2318-33-48 01:40:00* Test Item Value Reference Range Interpretation Comments Urine Urobilinogen (test code = 58401-4) 0.2 0.2-1 [facility] Usguxqttj5515-59-64 01:40:00* Test Item Value Reference Range Interpretation Comments Urine Bilirubin (test code = 1978-6) NEGATIVE NEGATIVE [facility] Btfwa8757-08-79 01:40:00* Test Item Value Reference Range Interpretation Comments Urine Blood (test code = 47396-4) NEGATIVE NEGATIVE [facility] Ysews4145-28-63 01:40:00* Test Item Value Reference Range Interpretation Comments Urine Color (test code = 5778-6) YELLOW YELLOW [facility] Xmjhutu9068-08-89 01:40:00* Test Item Value Reference Range Interpretation Comments Urine Clarity (test code = 33326-6) CLEAR CLEAR [facility] Specific Wrpgdss4270-21-36 01:40:00 * Test Item Value Reference Range Interpretation Comments Urine Specific [place] (test code = 5811-5) 1.005 1.010-1.02 5 L [facility] oA8599-67-10 01:40:00* Test Item Value Reference Range Interpretation Comments Urine pH (test code = 45680-0) 7 5-7 [facility] Leukocyte Bjyatdpa8969-01-39 01:40:00* Test Item Value Reference Range Interpretation Comments Urine Leukocyte Esterase (test code = 5799-2) NEGATIVE NEGATIVE [facility] Zprxhri9262-84-96 01:40:00* Test Item Value Reference Range Interpretation Comments Urine Nitrite (test code = 47902-3) NEGATIVE NEGATIVE [facility] Vxtnqnr3792-20-77 01:40:00* Test Item Value Reference Range Interpretation Comments Urine Protein (test code = 5804-0) NEGATIVE NEGATIVE [facility] Glucose (UA)2018-09-23 01:40:00* Test Item Value Reference Range Interpretation Comments Urine Glucose (UA) (test code = 2349-9) NEGATIVE NEGATIVE [facility] Rexfrzp5280-75-52 01:40:00* Test Item Value Reference Range Interpretation Comments Urine Ketones (test code = 70058-8) NEGATIVE NEGATIVE [facility] Oocirtggzmor6663-93-75 01:40:00* Test Item Value Reference Range Interpretation Comments Urine Urobilinogen (test code = 79394-7) 0.2 0.2-1 [facility] Jiugjdmlv1624-16-49 01:40:00* Test Item Value Reference Range Interpretation Comments Urine Bilirubin (test code = 1978-6) NEGATIVE NEGATIVE [facility] Fdidf0487-42-28 01:40:00* Test Item Value Reference Range Interpretation Comments Urine Blood (test code = 07948-2) NEGATIVE NEGATIVE [facility] Ysrhn4303-88-75 01:40:00* Test Item Value Reference Range Interpretation Comments Urine Color (test code = 5778-6) YELLOW YELLOW [facility] Jpjayyf3409-46-42 01:40:00* Test Item Value Reference Range Interpretation Comments Urine Clarity (test code = 57210-0) CLEAR CLEAR [facility] Specific Pqqalqs7587-14-52 01:40:00 * Test Item Value Reference Range Interpretation Comments Urine Specific [place] (test code = 5811-5) 1.005 1.010-1.02 5 L [facility] eL3508-30-99 01:40:00* Test Item Value Reference Range Interpretation Comments Urine pH (test code = 90857-4) 7 5-7 [facility] Leukocyte Bustqzvu1362-98-64 01:40:00* Test Item Value Reference Range Interpretation Comments Urine Leukocyte Esterase (test code = 5799-2) NEGATIVE NEGATIVE [facility] Fsrposb6618-39-99 01:40:00* Test Item Value Reference Range Interpretation Comments Urine Nitrite (test code = 51972-2) NEGATIVE NEGATIVE [facility] Mueiezu1827-44-96 01:40:00* Test Item Value Reference Range Interpretation Comments Urine Protein (test code = 5804-0) NEGATIVE NEGATIVE [facility] Glucose (UA)2018-09-23 01:40:00* Test Item Value Reference Range Interpretation Comments Urine Glucose (UA) (test code = 2349-9) NEGATIVE NEGATIVE [facility] Icmdwxq9854-90-03 01:40:00* Test Item Value Reference Range Interpretation Comments Urine Ketones (test code = 68245-0) NEGATIVE NEGATIVE [facility] Sydhitpluzeb7880-06-99 01:40:00* Test Item Value Reference Range Interpretation Comments Urine Urobilinogen (test code = 41387-8) 0.2 0.2-1 [facility] Oiojrepts9550-83-13 01:40:00* Test Item Value Reference Range Interpretation Comments Urine Bilirubin (test code = 1978-6) NEGATIVE NEGATIVE [facility] Lyzft6674-84-03 01:40:00* Test Item Value Reference Range Interpretation Comments Urine Blood (test code = 65583-7) NEGATIVE NEGATIVE [facility] Nnics8750-54-06 01:40:00* Test Item Value Reference Range Interpretation Comments Urine Color (test code = 5778-6) YELLOW YELLOW [facility] Mwjtrcn2325-92-71 01:40:00* Test Item Value Reference Range Interpretation Comments Urine Clarity (test code = 46199-5) CLEAR CLEAR [facility] Specific Kctklen0919-74-81 01:40:00 * Test Item Value Reference Range Interpretation Comments Urine Specific [place] (test code = 5811-5) 1.005 1.010-1.02 5 L [facility] vT8585-63-86 01:40:00* Test Item Value Reference Range Interpretation Comments Urine pH (test code = 97143-3) 7 5-7 [facility] Leukocyte Snyveubt1429-63-91 01:40:00* Test Item Value Reference Range Interpretation Comments Urine Leukocyte Esterase (test code = 5799-2) NEGATIVE NEGATIVE [facility] Uhajkrt2650-18-95 01:40:00* Test Item Value Reference Range Interpretation Comments Urine Nitrite (test code = 83104-8) NEGATIVE NEGATIVE [facility] Hcjilww6966-51-92 01:40:00* Test Item Value Reference Range Interpretation Comments Urine Protein (test code = 5804-0) NEGATIVE NEGATIVE [facility] Glucose (UA)2018-09-23 01:40:00* Test Item Value Reference Range Interpretation Comments Urine Glucose (UA) (test code = 2349-9) NEGATIVE NEGATIVE [facility] Mxthcuj6996-61-99 01:40:00* Test Item Value Reference Range Interpretation Comments Urine Ketones (test code = 68008-1) NEGATIVE NEGATIVE [facility] Jlnepqvtizxj4866-94-63 01:40:00* Test Item Value Reference Range Interpretation Comments Urine Urobilinogen (test code = 24267-0) 0.2 0.2-1 [facility] Xdfwzmmff8703-51-63 01:40:00* Test Item Value Reference Range Interpretation Comments Urine Bilirubin (test code = 1978-6) NEGATIVE NEGATIVE [facility] Ihdvx8123-57-75 01:40:00* Test Item Value Reference Range Interpretation Comments Urine Blood (test code = 13976-6) NEGATIVE NEGATIVE [facility] Sfulw6274-17-34 01:40:00* Test Item Value Reference Range Interpretation Comments Urine Color (test code = 5778-6) YELLOW YELLOW [facility] Bmsagfa4443-50-84 01:40:00* Test Item Value Reference Range Interpretation Comments Urine Clarity (test code = 47892-8) CLEAR CLEAR [facility] Specific Ndyihef3671-21-09 01:40:00 * Test Item Value Reference Range Interpretation Comments Urine Specific [place] (test code = 5811-5) 1.005 1.010-1.02 5 L [facility] iX3780-99-44 01:40:00* Test Item Value Reference Range Interpretation Comments Urine pH (test code = 79783-8) 7 5-7 [facility] Leukocyte Ytqpfxbi9881-34-24 01:40:00* Test Item Value Reference Range Interpretation Comments Urine Leukocyte Esterase (test code = 5799-2) NEGATIVE NEGATIVE [facility] Jolbmsd3249-81-34 01:40:00* Test Item Value Reference Range Interpretation Comments Urine Nitrite (test code = 58456-1) NEGATIVE NEGATIVE [facility] Kvcdtdf4689-05-90 01:40:00* Test Item Value Reference Range Interpretation Comments Urine Protein (test code = 5804-0) NEGATIVE NEGATIVE [facility] Glucose (UA)2018-09-23 01:40:00* Test Item Value Reference Range Interpretation Comments Urine Glucose (UA) (test code = 2349-9) NEGATIVE NEGATIVE [facility] Qeypeal2477-09-89 01:40:00* Test Item Value Reference Range Interpretation Comments Urine Ketones (test code = 75778-6) NEGATIVE NEGATIVE [facility] Qqbrfwlzyuik3905-85-11 01:40:00* Test Item Value Reference Range Interpretation Comments Urine Urobilinogen (test code = 84987-5) 0.2 0.2-1 [facility] Pfoadrmun5249-34-76 01:40:00* Test Item Value Reference Range Interpretation Comments Urine Bilirubin (test code = 1978-6) NEGATIVE NEGATIVE [facility] Ywvjw7054-69-15 01:40:00* Test Item Value Reference Range Interpretation Comments Urine Blood (test code = 81085-1) NEGATIVE NEGATIVE [facility] Feyvi5921-13-43 01:40:00* Test Item Value Reference Range Interpretation Comments Urine Color (test code = 5778-6) YELLOW YELLOW [facility] Ymnapxb9659-30-54 01:40:00* Test Item Value Reference Range Interpretation Comments Urine Clarity (test code = 04755-6) CLEAR CLEAR [facility] Specific Vgribdk6396-61-09 01:40:00 * Test Item Value Reference Range Interpretation Comments Urine Specific [place] (test code = 5811-5) 1.005 1.010-1.02 5 L [facility] iF2533-95-41 01:40:00* Test Item Value Reference Range Interpretation Comments Urine pH (test code = 51037-5) 7 5-7 [facility] Leukocyte Sdwlnuxd3389-82-27 01:40:00* Test Item Value Reference Range Interpretation Comments Urine Leukocyte Esterase (test code = 5799-2) NEGATIVE NEGATIVE [facility] Hyvnowo5908-19-69 01:40:00* Test Item Value Reference Range Interpretation Comments Urine Nitrite (test code = 65592-4) NEGATIVE NEGATIVE [facility] Pgqosjq4155-64-73 01:40:00* Test Item Value Reference Range Interpretation Comments Urine Protein (test code = 5804-0) NEGATIVE NEGATIVE [facility] Glucose (UA)2018-09-23 01:40:00* Test Item Value Reference Range Interpretation Comments Urine Glucose (UA) (test code = 2349-9) NEGATIVE NEGATIVE [facility] HospitalUrine Weylcru3529-50-64 01:40:00* Test Item Value Reference Range Interpretation Comments Urine Ketones (test code = 07801-8) NEGATIVE NEGATIVE [facility] Wcaicaiotyef1121-61-46 01:40:00* Test Item Value Reference Range Interpretation Comments Urine Urobilinogen (test code = 51275-6) 0.2 0.2-1 [facility] Hymqbgpps5592-39-52 01:40:00* Test Item Value Reference Range Interpretation Comments Urine Bilirubin (test code = 1978-6) NEGATIVE NEGATIVE [facility] Jfgrv2157-99-23 01:40:00* Test Item Value Reference Range Interpretation Comments Urine Blood (test code = 51076-6) NEGATIVE NEGATIVE [facility] HospitalCHEST SINGLE (PORTABLE)2018-09-23 00:28:00 [place] [address] Patient Name: DAVID TUCKER JR MR #: [id number] : 1945 Age/Sex: 73/M Req #: [id number] Adm Physician: Ordered by: MERRILL DE LEON MD Report #: [id number] Location: ER Room/Bed: Procedure: [id number] DX /CHEST SINGLE (PORTABLE) Exam Date: 09/23/18 Exam Ti me: [id number] REPORT STATUS: Signed E XAMINATION: CHEST SINGLE (PORTABLE) INDICATION: CHEST PAIN COMPARISON: Chest x-ray 09/21/2015. FINDINGS: AP view TUBES an d LINES: None. LUNGS: Lungs are not well inflated. There are bibasilar a telectasis. There is no evidence of pneumonia or pulmonary edema. PLEURA: No pleural effusion or pneumothorax. HEART AND MEDIASTINUM: The cardiome diastinal silhouette is unremarkable. BONES AND SOFT TISSUES: No acute osseous lesion. Soft tissues are unremarkable. UPPER ABDOMEN: No free a ir under the diaphragm. IMPRESSION: Hypoinflated lungs with bibasila r atelectasis. Signed by: Dr. Remi Delatorre M.D. on 09/23/2018 12:30 AM Dictated By: REMI DELATORRE MD Transcribed By: CAROLINE on 09/23/1829 COPY TO: MERRILL DE LEON MD Sodium Bnxvv2885-57-73 00:24:00* Test Item Value Reference Range Interpretation Comments Sodium Level (test code = 2951-2) 135 136-145 L [facility] HospitalPotassium Yblin0974-88-31 00:24:00* Test Item Value Reference Range Interpretation Comments Potassium Level (test code = 2823-3) 4.1 3.5-5.1 [facility] HospitalChloride Hekzm1751-48-84 00:24:00* Test Item Value Reference Range Interpretation Comments Chloride Level (test code = 2075-0) 101 98-107 [facility] HospitalCarbon Dioxide Btgvc3008-25-67 00:24:00* Test Item Value Reference Range Interpretation Comments Carbon Dioxide Level (test code = 2028-9) 26 22-29 [facility] HospitalAnion Enm6736-28-16 00:24:00* Test Item Value Reference Range Interpretation Comments Anion Gap (test code = 56244-6) 12.1 8-16 [facility] HospitalBlood Urea Pkktbedj9392-84-54 00:24:00* Test Item Value Reference Range Interpretation Comments Blood Urea Nitrogen (test code = 3094-0) 13 7-26 [facility] HospitalCreatinine2019-04-12 00:24:00* Test Item Value Reference Range Interpretation Comments Creatinine (test code = 2160-0) 0.89 0.72-1.25 [facility] HospitalBUN/Creatinine Gwmjn0127-05-35 00:24:00* Test Item Value Reference Range Interpretation Comments BUN/Creatinine Ratio (test code = 3097-3) 15 6-25 [facility] HospitalEstimat Glomerular Filtration Rate 2018-09-23 00:24:00* Test Item Value Reference Range Interpretation Comments Estimat Glomerular Filtration Rate (test code = 794706458) > 60 >60 Ranges were taken from the National Kidney Disease Education Program and the [facility] literature.Reference ranges:60 or greater: Jilewj87-20 ( for 3 consecutive months): Chronic kidney disease 15 or less: Kidney failureHouston [facility] HospitalGlucose Uwxfp7427-90-18 00:24:00* Test Item Value Reference Range Interpretation Comments Glucose Level (test code = FTJ5406) 151 74-118 H [facility] HospitalCalcium Monqv6103-07-29 00:24:00* Test Item Value Reference Range Interpretation Comments Calcium Level (test code = 01937-5) 9.3 8.4-10.2 [facility] HospitalMagnesium Ptezm2386-62-19 00:24:00* Test Item Value Reference Range Interpretation Comments Magnesium Level (test code = 15761-2) 2.2 1.3-2.1 H [facility] HospitalTotal Qvhwgafqq8672-92-25 00:24:00* Test Item Value Reference Range Interpretation Comments Total Bilirubin (test code = 1975-2) 1.1 0.2-1.2 [facility] HospitalAspartate Amino Transf (AST/SGOT) 2018-09-23 00:24:00* Test Item Value Reference Range Interpretation Comments Aspartate Amino Transf (AST/SGOT) (test code = Aspartate Amino Transf (AST/SGOT)) 19 5-34 [facility] HospitalAlanine Aminotransferase (ALT/SGPT) 2018-09-23 00:24:00* Test Item Value Reference Range Interpretation Comments Alanine Aminotransferase (ALT/SGPT) (test code = 1742-6) 14 0-55 [facility] HospitalTotal Byvztfv1609-10-02 00:24:00* Test Item Value Reference Range Interpretation Comments Total Protein (test code = 2885-2) 8.0 6.5-8.1 [facility] HospitalAlbumin2019-04-12 00:24:00* Test Item Value Reference Range Interpretation Comments Albumin (test code = 1751-7) 3.8 3.5-5.0 [facility] HospitalGlobulin2019-04-12 00:24:00* Test Item Value Reference Range Interpretation Comments Globulin (test code = 87762-0) 4.2 2.3-3.5 H [facility] HospitalAlbumin/Globulin Hmyjc5187-59-66 00:24:00 * Test Item Value Reference Range Interpretation Comments Albumin/Globulin Ratio (test code = 1759-0) 0.9 0.8-2.0 [facility] HospitalAlkaline Rgvxwgtgtcd5650-68-30 00:24:00* Test Item Value Reference Range Interpretation Comments Alkaline Phosphatase (test code = 6768-6) 86 40-150 [facility] Pblrj5799-48-34 00:24:00* Test Item Value Reference Range Interpretation Comments Sodium Level (test code = 2951-2) 135 136-145 L [facility] HospitalPotassium Ktokv8973-51-19 00:24:00* Test Item Value Reference Range Interpretation Comments Potassium Level (test code = 2823-3) 4.1 3.5-5.1 [facility] HospitalChloride Kykwl6757-32-93 00:24:00* Test Item Value Reference Range Interpretation Comments Chloride Level (test code = 2075-0) 101 98-107 [facility] HospitalCarbon Dioxide Nsqzm5049-08-43 00:24:00* Test Item Value Reference Range Interpretation Comments Carbon Dioxide Level (test code = 2028-9) 26 22-29 [facility] HospitalAnion Vee9169-52-02 00:24:00* Test Item Value Reference Range Interpretation Comments Anion Gap (test code = 36852-3) 12.1 8-16 [facility] HospitalBlood Urea Qrdydaes4560-18-06 00:24:00* Test Item Value Reference Range Interpretation Comments Blood Urea Nitrogen (test code = 3094-0) 13 7-26 [facility] HospitalCreatinine2019-04-12 00:24:00* Test Item Value Reference Range Interpretation Comments Creatinine (test code = 2160-0) 0.89 0.72-1.25 [facility] HospitalBUN/Creatinine Byvjo1427-17-27 00:24:00* Test Item Value Reference Range Interpretation Comments BUN/Creatinine Ratio (test code = 3097-3) 15 - [facility] HospitalEstimat Glomerular Filtration Rate 2018-09-23 00:24:00* Test Item Value Reference Range Interpretation Comments Estimat Glomerular Filtration Rate (test code = 320484456) > 60 >60 Ranges were taken from the National Kidney Disease Education Program and the [facility] literature.Reference ranges:60 or greater: Lrmltk85-01 ( for 3 consecutive months): Chronic kidney disease 15 or less: Kidney failureHouston [facility] HospitalGlucose Cwieo0505-04-33 00:24:00* Test Item Value Reference Range Interpretation Comments Glucose Level (test code = PTB0572) 151 74-118 H [facility] HospitalCalcium Yugvr9278-64-27 00:24:00* Test Item Value Reference Range Interpretation Comments Calcium Level (test code = 98214-2) 9.3 8.4-10.2 [facility] HospitalMagnesium Ebkrf5016-29-00 00:24:00* Test Item Value Reference Range Interpretation Comments Magnesium Level (test code = 14031-2) 2.2 1.3-2.1 H [facility] HospitalTotal Xghbgesho2299-70-63 00:24:00* Test Item Value Reference Range Interpretation Comments Total Bilirubin (test code = 1975-2) 1.1 0.2-1.2 [facility] HospitalAspartate Amino Transf (AST/SGOT) 2018-09-23 00:24:00* Test Item Value Reference Range Interpretation Comments Aspartate Amino Transf (AST/SGOT) (test code = Aspartate Amino Transf (AST/SGOT)) 19 5-34 [facility] HospitalAlanine Aminotransferase (ALT/SGPT) 2018-09-23 00:24:00* Test Item Value Reference Range Interpretation Comments Alanine Aminotransferase (ALT/SGPT) (test code = 1742-6) 14 0-55 [facility] HospitalTotal Baappmt3084-05-35 00:24:00* Test Item Value Reference Range Interpretation Comments Total Protein (test code = 2885-2) 8.0 6.5-8.1 [facility] HospitalAlbumin2019-04-12 00:24:00* Test Item Value Reference Range Interpretation Comments Albumin (test code = 1751-7) 3.8 3.5-5.0 [facility] HospitalGlobulin2019-04-12 00:24:00* Test Item Value Reference Range Interpretation Comments Globulin (test code = 03673-5) 4.2 2.3-3.5 H [facility] HospitalAlbumin/Globulin Enidy8074-53-77 00:24:00 * Test Item Value Reference Range Interpretation Comments Albumin/Globulin Ratio (test code = 1759-0) 0.9 0.8-2.0 [facility] HospitalAlkaline Ewyobhsuegv4075-74-75 00:24:00* Test Item Value Reference Range Interpretation Comments Alkaline Phosphatase (test code = 6768-6) 86 40-150 [facility] Whowm0339-86-29 00:24:00* Test Item Value Reference Range Interpretation Comments Sodium Level (test code = 2951-2) 135 136-145 L [facility] HospitalPotassium Nalhk4465-42-45 00:24:00* Test Item Value Reference Range Interpretation Comments Potassium Level (test code = 2823-3) 4.1 3.5-5.1 [facility] HospitalChloride Oasmu8411-82-03 00:24:00* Test Item Value Reference Range Interpretation Comments Chloride Level (test code = 2075-0) 101 98-107 [facility] HospitalCarbon Dioxide Rwnrg2475-30-96 00:24:00* Test Item Value Reference Range Interpretation Comments Carbon Dioxide Level (test code = 2028-9) 26 22-29 [facility] HospitalAnion Bgx9518-79-23 00:24:00* Test Item Value Reference Range Interpretation Comments Anion Gap (test code = 94239-8) 12.1 8-16 [facility] HospitalBlood Urea Ksjxrkwa3739-43-09 00:24:00* Test Item Value Reference Range Interpretation Comments Blood Urea Nitrogen (test code = 3094-0) 13 7-26 [facility] HospitalCreatinine2019-04-12 00:24:00* Test Item Value Reference Range Interpretation Comments Creatinine (test code = 2160-0) 0.89 0.72-1.25 [facility] HospitalBUN/Creatinine Hhqdt2409-30-45 00:24:00* Test Item Value Reference Range Interpretation Comments BUN/Creatinine Ratio (test code = 3097-3) 15 - [facility] HospitalEstimat Glomerular Filtration Rate 2018-09-23 00:24:00* Test Item Value Reference Range Interpretation Comments Estimat Glomerular Filtration Rate (test code = 908996994) > 60 >60 Ranges were taken from the National Kidney Disease Education Program and the [facility] literature.Reference ranges:60 or greater: Tfflny10-38 ( for 3 consecutive months): Chronic kidney disease 15 or less: Kidney failureHouston [facility] HospitalGlucose Iidlw4920-92-26 00:24:00* Test Item Value Reference Range Interpretation Comments Glucose Level (test code = ZHZ5176) 151 74-118 H [facility] HospitalCalcium Toxwq0436-68-92 00:24:00* Test Item Value Reference Range Interpretation Comments Calcium Level (test code = 05841-5) 9.3 8.4-10.2 [facility] HospitalMagnesium Vzhda5333-09-88 00:24:00* Test Item Value Reference Range Interpretation Comments Magnesium Level (test code = 66151-1) 2.2 1.3-2.1 H [facility] HospitalTotal Iiczkumbv3980-26-03 00:24:00* Test Item Value Reference Range Interpretation Comments Total Bilirubin (test code = 1975-2) 1.1 0.2-1.2 [facility] HospitalAspartate Amino Transf (AST/SGOT) 2018-09-23 00:24:00* Test Item Value Reference Range Interpretation Comments Aspartate Amino Transf (AST/SGOT) (test code = Aspartate Amino Transf (AST/SGOT)) 19 5-34 [facility] HospitalAlanine Aminotransferase (ALT/SGPT) 2018-09-23 00:24:00* Test Item Value Reference Range Interpretation Comments Alanine Aminotransferase (ALT/SGPT) (test code = 1742-6) 14 0-55 [facility] HospitalTotal Tbkpqmh0945-81-03 00:24:00* Test Item Value Reference Range Interpretation Comments Total Protein (test code = 2885-2) 8.0 6.5-8.1 [facility] HospitalAlbumin2019-04-12 00:24:00* Test Item Value Reference Range Interpretation Comments Albumin (test code = 1751-7) 3.8 3.5-5.0 [facility] HospitalGlobulin2019-04-12 00:24:00* Test Item Value Reference Range Interpretation Comments Globulin (test code = 68874-6) 4.2 2.3-3.5 H [facility] HospitalAlbumin/Globulin Suuhj6055-76-32 00:24:00 * Test Item Value Reference Range Interpretation Comments Albumin/Globulin Ratio (test code = 1759-0) 0.9 0.8-2.0 [facility] HospitalAlkaline Uegzzfbknvo4828-21-71 00:24:00* Test Item Value Reference Range Interpretation Comments Alkaline Phosphatase (test code = 6768-6) 86 40-150 [facility] Sgedg8310-54-70 00:24:00* Test Item Value Reference Range Interpretation Comments Sodium Level (test code = 2951-2) 135 136-145 L [facility] HospitalPotassium Dzunm3049-34-61 00:24:00* Test Item Value Reference Range Interpretation Comments Potassium Level (test code = 2823-3) 4.1 3.5-5.1 [facility] HospitalChloride Rutlp1445-41-00 00:24:00* Test Item Value Reference Range Interpretation Comments Chloride Level (test code = 2075-0) 101 98-107 [facility] HospitalCarbon Dioxide Iwgzj1688-74-36 00:24:00* Test Item Value Reference Range Interpretation Comments Carbon Dioxide Level (test code = 2028-9) 26 22-29 [facility] HospitalAnion Zjf9196-50-72 00:24:00* Test Item Value Reference Range Interpretation Comments Anion Gap (test code = 07072-1) 12.1 8-16 [facility] HospitalBlood Urea Xbnuxmfr7812-71-19 00:24:00* Test Item Value Reference Range Interpretation Comments Blood Urea Nitrogen (test code = 3094-0) 13 7-26 [facility] HospitalCreatinine2019-04-12 00:24:00* Test Item Value Reference Range Interpretation Comments Creatinine (test code = 2160-0) 0.89 0.72-1.25 [facility] HospitalBUN/Creatinine Seeof3363-59-16 00:24:00* Test Item Value Reference Range Interpretation Comments BUN/Creatinine Ratio (test code = 3097-3) 15 6- [facility] HospitalEstimat Glomerular Filtration Rate 2018-09-23 00:24:00* Test Item Value Reference Range Interpretation Comments Estimat Glomerular Filtration Rate (test code = 268354768) > 60 >60 Ranges were taken from the National Kidney Disease Education Program and the [facility] literature.Reference ranges:60 or greater: Ghvirx66-12 ( for 3 consecutive months): Chronic kidney disease 15 or less: Kidney failureHouston [facility] HospitalGlucose Amekq5036-06-19 00:24:00* Test Item Value Reference Range Interpretation Comments Glucose Level (test code = JHM9169) 151 74-118 H [facility] HospitalCalcium Kbfba9387-95-31 00:24:00* Test Item Value Reference Range Interpretation Comments Calcium Level (test code = 63884-6) 9.3 8.4-10.2 [facility] HospitalMagnesium Ujlws9768-59-41 00:24:00* Test Item Value Reference Range Interpretation Comments Magnesium Level (test code = 63065-4) 2.2 1.3-2.1 H [facility] HospitalTotal Txajiwffe5505-48-31 00:24:00* Test Item Value Reference Range Interpretation Comments Total Bilirubin (test code = 1975-2) 1.1 0.2-1.2 [facility] HospitalAspartate Amino Transf (AST/SGOT) 2018-09-23 00:24:00* Test Item Value Reference Range Interpretation Comments Aspartate Amino Transf (AST/SGOT) (test code = Aspartate Amino Transf (AST/SGOT)) 19 5-34 [facility] HospitalAlanine Aminotransferase (ALT/SGPT) 2018-09-23 00:24:00* Test Item Value Reference Range Interpretation Comments Alanine Aminotransferase (ALT/SGPT) (test code = 1742-6) 14 0-55 [facility] HospitalTotal Ohfrhld0809-17-55 00:24:00* Test Item Value Reference Range Interpretation Comments Total Protein (test code = 2885-2) 8.0 6.5-8.1 [facility] HospitalAlbumin2019-04-12 00:24:00* Test Item Value Reference Range Interpretation Comments Albumin (test code = 1751-7) 3.8 3.5-5.0 [facility] HospitalGlobulin2019-04-12 00:24:00* Test Item Value Reference Range Interpretation Comments Globulin (test code = 39662-1) 4.2 2.3-3.5 H [facility] HospitalAlbumin/Globulin Jqirp1101-02-44 00:24:00 * Test Item Value Reference Range Interpretation Comments Albumin/Globulin Ratio (test code = 1759-0) 0.9 0.8-2.0 [facility] HospitalAlkaline Fngahenbfzf4236-27-39 00:24:00* Test Item Value Reference Range Interpretation Comments Alkaline Phosphatase (test code = 6768-6) 86 40-150 [facility] Uxzty3439-64-64 00:24:00* Test Item Value Reference Range Interpretation Comments Sodium Level (test code = 2951-2) 135 136-145 L [facility] HospitalPotassium Vviwv9935-61-03 00:24:00* Test Item Value Reference Range Interpretation Comments Potassium Level (test code = 2823-3) 4.1 3.5-5.1 [facility] HospitalChloride Vizir0661-32-73 00:24:00* Test Item Value Reference Range Interpretation Comments Chloride Level (test code = 2075-0) 101 98-107 [facility] HospitalCarbon Dioxide Xuvpg7495-59-49 00:24:00* Test Item Value Reference Range Interpretation Comments Carbon Dioxide Level (test code = 2028-9) 26 22-29 [facility] HospitalAnion Byq8589-46-53 00:24:00* Test Item Value Reference Range Interpretation Comments Anion Gap (test code = 21074-6) 12.1 8-16 [facility] HospitalBlood Urea Biyajkhz2362-05-46 00:24:00* Test Item Value Reference Range Interpretation Comments Blood Urea Nitrogen (test code = 3094-0) 13 7-26 [facility] HospitalCreatinine2019-04-12 00:24:00* Test Item Value Reference Range Interpretation Comments Creatinine (test code = 2160-0) 0.89 0.72-1.25 [facility] HospitalBUN/Creatinine Bsebs7028-39-14 00:24:00* Test Item Value Reference Range Interpretation Comments BUN/Creatinine Ratio (test code = 3097-3) 15 6-25 [facility] HospitalEstimat Glomerular Filtration Rate 2018-09-23 00:24:00* Test Item Value Reference Range Interpretation Comments Estimat Glomerular Filtration Rate (test code = 607361437) > 60 >60 Ranges were taken from the National Kidney Disease Education Program and the [facility] literature.Reference ranges:60 or greater: Qnenjz18-84 ( for 3 consecutive months): Chronic kidney disease 15 or less: Kidney failureHouston [facility] HospitalGlucose Afpab5879-55-49 00:24:00* Test Item Value Reference Range Interpretation Comments Glucose Level (test code = KPQ4860) 151 74-118 H [facility] HospitalCalcium Jszeo8147-70-65 00:24:00* Test Item Value Reference Range Interpretation Comments Calcium Level (test code = 38681-5) 9.3 8.4-10.2 [facility] HospitalMagnesium Kjcst1516-66-01 00:24:00* Test Item Value Reference Range Interpretation Comments Magnesium Level (test code = 38488-3) 2.2 1.3-2.1 H [facility] HospitalTotal Atfnpkxqt4987-85-01 00:24:00* Test Item Value Reference Range Interpretation Comments Total Bilirubin (test code = 1975-2) 1.1 0.2-1.2 [facility] HospitalAspartate Amino Transf (AST/SGOT) 2018-09-23 00:24:00* Test Item Value Reference Range Interpretation Comments Aspartate Amino Transf (AST/SGOT) (test code = Aspartate Amino Transf (AST/SGOT)) 19 5-34 [facility] HospitalAlanine Aminotransferase (ALT/SGPT) 2018-09-23 00:24:00* Test Item Value Reference Range Interpretation Comments Alanine Aminotransferase (ALT/SGPT) (test code = 1742-6) 14 0-55 [facility] HospitalTotal Kszywgh2019-87-97 00:24:00* Test Item Value Reference Range Interpretation Comments Total Protein (test code = 2885-2) 8.0 6.5-8.1 [facility] HospitalAlbumin2019-04-12 00:24:00* Test Item Value Reference Range Interpretation Comments Albumin (test code = 1751-7) 3.8 3.5-5.0 [facility] HospitalGlobulin2019-04-12 00:24:00* Test Item Value Reference Range Interpretation Comments Globulin (test code = 22035-2) 4.2 2.3-3.5 H [facility] HospitalAlbumin/Globulin Jyuct7829-33-19 00:24:00 * Test Item Value Reference Range Interpretation Comments Albumin/Globulin Ratio (test code = 1759-0) 0.9 0.8-2.0 [facility] HospitalAlkaline Qbspnkzofiz1277-79-28 00:24:00* Test Item Value Reference Range Interpretation Comments Alkaline Phosphatase (test code = 6768-6) 86 40-150 [facility] Fqtyh9207-07-54 00:24:00* Test Item Value Reference Range Interpretation Comments Sodium Level (test code = 2951-2) 135 136-145 L [facility] HospitalPotassium Lspqv9278-92-41 00:24:00* Test Item Value Reference Range Interpretation Comments Potassium Level (test code = 2823-3) 4.1 3.5-5.1 [facility] HospitalChloride Nxpab6322-12-64 00:24:00* Test Item Value Reference Range Interpretation Comments Chloride Level (test code = 2075-0) 101 98-107 [facility] HospitalCarbon Dioxide Ipeeb8249-56-63 00:24:00* Test Item Value Reference Range Interpretation Comments Carbon Dioxide Level (test code = 2028-9) 26 22-29 [facility] HospitalAnion Lck5305-96-22 00:24:00* Test Item Value Reference Range Interpretation Comments Anion Gap (test code = 09900-2) 12.1 8-16 [facility] HospitalBlood Urea Cbnmyhqd3011-22-71 00:24:00* Test Item Value Reference Range Interpretation Comments Blood Urea Nitrogen (test code = 3094-0) 13 7-26 [facility] HospitalCreatinine2019-04-12 00:24:00* Test Item Value Reference Range Interpretation Comments Creatinine (test code = 2160-0) 0.89 0.72-1.25 [facility] [facility]Creatinine Slivy3802-36-01 00:24:00* Test Item Value Reference Range Interpretation Comments BUN/Creatinine Ratio (test code = 3097-3) 15 6-25 [facility] HospitalEstimat Glomerular Filtration Rate 2018-09-23 00:24:00* Test Item Value Reference Range Interpretation Comments Estimat Glomerular Filtration Rate (test code = 763634353) > 60 >60 Ranges were taken from the National Kidney Disease Education Program and the [facility] literature.Reference ranges:60 or greater: Eqfdwo08-77 ( for 3 consecutive months): Chronic kidney disease 15 or less: Kidney failureHouston [facility] HospitalGlucose Pflhh2039-04-14 00:24:00* Test Item Value Reference Range Interpretation Comments Glucose Level (test code = ZXN3066) 151 74-118 H [facility] HospitalCalcium Rblqh3679-85-64 00:24:00* Test Item Value Reference Range Interpretation Comments Calcium Level (test code = 74106-1) 9.3 8.4-10.2 [facility] HospitalMagnesium Vwihd1074-23-00 00:24:00* Test Item Value Reference Range Interpretation Comments Magnesium Level (test code = 03298-9) 2.2 1.3-2.1 H [facility] HospitalTotal Odauwxmfv9329-50-68 00:24:00* Test Item Value Reference Range Interpretation Comments Total Bilirubin (test code = 1975-2) 1.1 0.2-1.2 [facility] HospitalAspartate Amino Transf (AST/SGOT) 2018-09-23 00:24:00* Test Item Value Reference Range Interpretation Comments Aspartate Amino Transf (AST/SGOT) (test code = Aspartate Amino Transf (AST/SGOT)) 19 5-34 [facility] HospitalAlanine Aminotransferase (ALT/SGPT) 2018-09-23 00:24:00* Test Item Value Reference Range Interpretation Comments Alanine Aminotransferase (ALT/SGPT) (test code = 1742-6) 14 0-55 [facility] HospitalTotal Qmxasdn0249-72-50 00:24:00* Test Item Value Reference Range Interpretation Comments Total Protein (test code = 2885-2) 8.0 6.5-8.1 [facility] HospitalAlbumin2019-04-12 00:24:00* Test Item Value Reference Range Interpretation Comments Albumin (test code = 1751-7) 3.8 3.5-5.0 [facility] HospitalGlobulin2019-04-12 00:24:00* Test Item Value Reference Range Interpretation Comments Globulin (test code = 01650-0) 4.2 2.3-3.5 H [facility] HospitalAlbumin/Globulin Hwlxi4978-98-70 00:24:00 * Test Item Value Reference Range Interpretation Comments Albumin/Globulin Ratio (test code = 1759-0) 0.9 0.8-2.0 [facility] HospitalAlkaline Argowxcjfzd3455-23-12 00:24:00* Test Item Value Reference Range Interpretation Comments Alkaline Phosphatase (test code = 6768-6) 86 40-150 [facility] Mfscw4713-27-61 00:24:00* Test Item Value Reference Range Interpretation Comments Sodium Level (test code = 2951-2) 135 136-145 L [facility] HospitalPotassium Rxynb0578-22-19 00:24:00* Test Item Value Reference Range Interpretation Comments Potassium Level (test code = 2823-3) 4.1 3.5-5.1 [facility] HospitalChloride Hwoni7939-35-16 00:24:00* Test Item Value Reference Range Interpretation Comments Chloride Level (test code = 2075-0) 101 98-107 [facility] HospitalCarbon Dioxide Ccmew6398-16-92 00:24:00* Test Item Value Reference Range Interpretation Comments Carbon Dioxide Level (test code = 2028-9) 26 22-29 [facility] HospitalAnion Ecx7919-83-93 00:24:00* Test Item Value Reference Range Interpretation Comments Anion Gap (test code = 89026-9) 12.1 8-16 [facility] HospitalBlood Urea Yciyucxz8205-35-48 00:24:00* Test Item Value Reference Range Interpretation Comments Blood Urea Nitrogen (test code = 3094-0) 13 7-26 [facility] HospitalCreatinine2019-04-12 00:24:00* Test Item Value Reference Range Interpretation Comments Creatinine (test code = 2160-0) 0.89 0.72-1.25 [facility] HospitalBUN/Creatinine Fqqfy2453-23-56 00:24:00* Test Item Value Reference Range Interpretation Comments BUN/Creatinine Ratio (test code = 3097-3) 15 6-25 [facility] HospitalEstimat Glomerular Filtration Rate 2018-09-23 00:24:00* Test Item Value Reference Range Interpretation Comments Estimat Glomerular Filtration Rate (test code = 284163930) > 60 >60 Ranges were taken from the National Kidney Disease Education Program and the [facility] literature.Reference ranges:60 or greater: Fbqifu64-03 ( for 3 consecutive months): Chronic kidney disease 15 or less: Kidney failureHouston [facility] HospitalGlucose Rknjy7749-03-59 00:24:00* Test Item Value Reference Range Interpretation Comments Glucose Level (test code = YND5861) 151 74-118 H [facility] HospitalCalcium Fqizz7015-69-56 00:24:00* Test Item Value Reference Range Interpretation Comments Calcium Level (test code = 44949-8) 9.3 8.4-10.2 [facility] HospitalMagnesium Hjier8432-00-59 00:24:00* Test Item Value Reference Range Interpretation Comments Magnesium Level (test code = 72007-9) 2.2 1.3-2.1 H [facility] HospitalTotal Dnhwivqaa6033-97-27 00:24:00* Test Item Value Reference Range Interpretation Comments Total Bilirubin (test code = 1975-2) 1.1 0.2-1.2 [facility] HospitalAspartate Amino Transf (AST/SGOT) 2018-09-23 00:24:00* Test Item Value Reference Range Interpretation Comments Aspartate Amino Transf (AST/SGOT) (test code = Aspartate Amino Transf (AST/SGOT)) 19 5-34 [facility] HospitalAlanine Aminotransferase (ALT/SGPT) 2018-09-23 00:24:00* Test Item Value Reference Range Interpretation Comments Alanine Aminotransferase (ALT/SGPT) (test code = 1742-6) 14 0-55 [facility] HospitalTotal Sytqnbl8353-00-14 00:24:00* Test Item Value Reference Range Interpretation Comments Total Protein (test code = 2885-2) 8.0 6.5-8.1 [facility] HospitalAlbumin2019-04-12 00:24:00* Test Item Value Reference Range Interpretation Comments Albumin (test code = 1751-7) 3.8 3.5-5.0 [facility] HospitalGlobulin2019-04-12 00:24:00* Test Item Value Reference Range Interpretation Comments Globulin (test code = 91314-7) 4.2 2.3-3.5 H [facility] HospitalAlbumin/Globulin Myseh7542-10-75 00:24:00 * Test Item Value Reference Range Interpretation Comments Albumin/Globulin Ratio (test code = 1759-0) 0.9 0.8-2.0 [facility] HospitalAlkaline Qgyayxrceuc1537-89-10 00:24:00* Test Item Value Reference Range Interpretation Comments Alkaline Phosphatase (test code = 6768-6) 86 40-150 [facility] HospitalProthrombin Mvtk1667-40-39 00:13:00* Test Item Value Reference Range Interpretation Comments Prothrombin Time (test code = 5902-2) 12.5 11.9-14.5 [facility] HospitalProthromb Time International Ratio 2018-09-23 00:13:00* Test Item Value Reference Range Interpretation Comments Prothromb Time International Ratio (test code = 6301-6) 0.89 Oral Anticoagulant Therapy INR Values:1. Low Intensity Therapy 1.5 - 2.02 . Moderate Intensity Therapy 2.0 - 3.03. High Intensity Therapy(1) 2.5 - 3. 54. High Intensity Therapy(2) 3.0 - 4.05. Panic Value INR > 5.0 [facility] HospitalActivated Partial Thromboplast Time 2018-09-23 00:13:00* Test Item Value Reference Range Interpretation Comments Activated Partial Thromboplast Time (test code = 38447-6) 57.1 23.8-35.5 H [facility] HospitalProthrombin Xbzy3516-25-64 00:13:00* Test Item Value Reference Range Interpretation Comments Prothrombin Time (test code = 5902-2) 12.5 11.9-14.5 [facility] HospitalProthromb Time International Ratio 2018-09-23 00:13:00* Test Item Value Reference Range Interpretation Comments Prothromb Time International Ratio (test code = 6301-6) 0.89 Oral Anticoagulant Therapy INR Values:1. Low Intensity Therapy 1.5 - 2.02 . Moderate Intensity Therapy 2.0 - 3.03. High Intensity Therapy(1) 2.5 - 3. 54. High Intensity Therapy(2) 3.0 - 4.05. Panic Value INR > 5.0 [facility] HospitalActivated Partial Thromboplast Time 2018-09-23 00:13:00* Test Item Value Reference Range Interpretation Comments Activated Partial Thromboplast Time (test code = 36978-6) 57.1 23.8-35.5 H [facility] HospitalProthrombin Epkd5180-71-08 00:13:00* Test Item Value Reference Range Interpretation Comments Prothrombin Time (test code = 5902-2) 12.5 11.9-14.5 [facility] HospitalProthromb Time International Ratio 2018-09-23 00:13:00* Test Item Value Reference Range Interpretation Comments Prothromb Time International Ratio (test code = 6301-6) 0.89 Oral Anticoagulant Therapy INR Values:1. Low Intensity Therapy 1.5 - 2.02 . Moderate Intensity Therapy 2.0 - 3.03. High Intensity Therapy(1) 2.5 - 3. 54. High Intensity Therapy(2) 3.0 - 4.05. Panic Value INR > 5.0 [facility] HospitalActivated Partial Thromboplast Time 2018-09-23 00:13:00* Test Item Value Reference Range Interpretation Comments Activated Partial Thromboplast Time (test code = 01523-1) 57.1 23.8-35.5 H [facility] HospitalProthrombin Kzwe5255-07-70 00:13:00* Test Item Value Reference Range Interpretation Comments Prothrombin Time (test code = 5902-2) 12.5 11.9-14.5 [facility] HospitalProthromb Time International Ratio 2018-09-23 00:13:00* Test Item Value Reference Range Interpretation Comments Prothromb Time International Ratio (test code = 6301-6) 0.89 Oral Anticoagulant Therapy INR Values:1. Low Intensity Therapy 1.5 - 2.02 . Moderate Intensity Therapy 2.0 - 3.03. High Intensity Therapy(1) 2.5 - 3. 54. High Intensity Therapy(2) 3.0 - 4.05. Panic Value INR > 5.0 [facility] HospitalActivated Partial Thromboplast Time 2018-09-23 00:13:00* Test Item Value Reference Range Interpretation Comments Activated Partial Thromboplast Time (test code = 57890-6) 57.1 23.8-35.5 H [facility] HospitalProthrombin Wkrt6533-12-59 00:13:00* Test Item Value Reference Range Interpretation Comments Prothrombin Time (test code = 5902-2) 12.5 11.9-14.5 [facility] HospitalProthromb Time International Ratio 2018-09-23 00:13:00* Test Item Value Reference Range Interpretation Comments Prothromb Time International Ratio (test code = 6301-6) 0.89 Oral Anticoagulant Therapy INR Values:1. Low Intensity Therapy 1.5 - 2.02 . Moderate Intensity Therapy 2.0 - 3.03. High Intensity Therapy(1) 2.5 - 3. 54. High Intensity Therapy(2) 3.0 - 4.05. Panic Value INR > 5.0 [facility] HospitalActivated Partial Thromboplast Time 2018-09-23 00:13:00* Test Item Value Reference Range Interpretation Comments Activated Partial Thromboplast Time (test code = 12373-3) 57.1 23.8-35.5 H [facility] HospitalProthrombin Gmlm4970-55-08 00:13:00* Test Item Value Reference Range Interpretation Comments Prothrombin Time (test code = 5902-2) 12.5 11.9-14.5 [facility] HospitalProthromb Time International Ratio 2018-09-23 00:13:00* Test Item Value Reference Range Interpretation Comments Prothromb Time International Ratio (test code = 6301-6) 0.89 Oral Anticoagulant Therapy INR Values:1. Low Intensity Therapy 1.5 - 2.02 . Moderate Intensity Therapy 2.0 - 3.03. High Intensity Therapy(1) 2.5 - 3. 54. High Intensity Therapy(2) 3.0 - 4.05. Panic Value INR > 5.0 [facility] HospitalActivated Partial Thromboplast Time 2018-09-23 00:13:00* Test Item Value Reference Range Interpretation Comments Activated Partial Thromboplast Time (test code = 21475-8) 57.1 23.8-35.5 H [facility] HospitalProthrombin Mrfc9419-90-27 00:13:00* Test Item Value Reference Range Interpretation Comments Prothrombin Time (test code = 5902-2) 12.5 11.9-14.5 [facility] HospitalProthromb Time International Ratio 2018-09-23 00:13:00* Test Item Value Reference Range Interpretation Comments Prothromb Time International Ratio (test code = 6301-6) 0.89 Oral Anticoagulant Therapy INR Values:1. Low Intensity Therapy 1.5 - 2.02 . Moderate Intensity Therapy 2.0 - 3.03. High Intensity Therapy(1) 2.5 - 3. 54. High Intensity Therapy(2) 3.0 - 4.05. Panic Value INR > 5.0 [facility] HospitalActivated Partial Thromboplast Time 2018-09-23 00:13:00* Test Item Value Reference Range Interpretation Comments Activated Partial Thromboplast Time (test code = 90567-3) 57.1 23.8-35.5 H [facility] HospitalWhite Blood Oawwf4089-70-01 23:55:00* Test Item Value Reference Range Interpretation Comments White Blood Count (test code = 6690-2) 6.13 4.8-10.8 [facility] HospitalRed Blood Eyetb8875-98-97 23:55:00* Test Item Value Reference Range Interpretation Comments Red Blood Count (test code = 789-8) 4.21 4.3-5.7 L [facility] HospitalHemoglobin2019-04-11 23:55:00* Test Item Value Reference Range Interpretation Comments Hemoglobin (test code = 70579-8) 14.5 14.0-18.0 [facility] HospitalHematocrit2019-04-11 23:55:00* Test Item Value Reference Range Interpretation Comments Hematocrit (test code = 4544-3) 41.5 38.2-49.6 [facility] HospitalMean Corpuscular Euombv6230-51-40 23:55:00* Test Item Value Reference Range Interpretation Comments Mean Corpuscular Volume (test code = 787-2) 98.6 81-99 [facility] HospitalMean Corpuscular Mazujkgqlk0486-13-58 23:55:00* Test Item Value Reference Range Interpretation Comments Mean Corpuscular Hemoglobin (test code = 785-6) 34.4 28-32 H [facility] HospitalMean Corpuscular Hemoglobin Concent 2018-09-22 23:55:00* Test Item Value Reference Range Interpretation Comments Mean Corpuscular Hemoglobin Concent (test code = 786-4) 34.9 31-35 [facility] HospitalRed Cell Distribution Pqige3446-11-04 23:55:00* Test Item Value Reference Range Interpretation Comments Red Cell Distribution Width (test code = 36155-3) 13.1 11.7 -14.4 [facility] HospitalPlatelet Xcsus8967-89-41 23:55:00* Test Item Value Reference Range Interpretation Comments Platelet Count (test code = 777-3) 169 140-360 [facility] HospitalNeutrophils (%) (Auto)2018-09-22 23:55:00 * Test Item Value Reference Range Interpretation Comments Neutrophils (%) (Auto) (test code = 01671-4) 57.4 38.7-80.0 [facility] HospitalLymphocytes (%) (Auto)2018-09-22 23:55:00 * Test Item Value Reference Range Interpretation Comments Lymphocytes (%) (Auto) (test code = 736-9) 28.9 18.0-39.1 [facility] HospitalMonocytes (%) (Auto)2018-09-22 23:55:00* Test Item Value Reference Range Interpretation Comments Monocytes (%) (Auto) (test code = 5905-5) 10.6 4.4-11.3 [facility] HospitalEosinophils (%) (Auto)2018-09-22 23:55:00 * Test Item Value Reference Range Interpretation Comments Eosinophils (%) (Auto) (test code = 713-8) 2.6 0.0-6.0 [facility] HospitalBasophils (%) (Auto)2018-09-22 23:55:00* Test Item Value Reference Range Interpretation Comments Basophils (%) (Auto) (test code = 706-2) 0.3 0.0-1.0 [facility] HospitalIM GRANULOCYTES %2018-09-22 23:55:00* Test Item Value Reference Range Interpretation Comments IM GRANULOCYTES % (test code = IM GRANULOCYTES %) 0.2 0.0- 1.0 [facility] HospitalNeutrophils # (Auto)2018-09-22 23:55:00* Test Item Value Reference Range Interpretation Comments Neutrophils # (Auto) (test code = 751-8) 3.5 2.1-6.9 [facility] HospitalLymphocytes # (Auto)2018-09-22 23:55:00* Test Item Value Reference Range Interpretation Comments Lymphocytes # (Auto) (test code = 97925-4) 1.8 1.0-3.2 [facility] HospitalMonocytes # (Auto)2018-09-22 23:55:00* Test Item Value Reference Range Interpretation Comments Monocytes # (Auto) (test code = 742-7) 0.7 0.2-0.8 [facility] HospitalEosinophils # (Auto)2018-09-22 23:55:00* Test Item Value Reference Range Interpretation Comments Eosinophils # (Auto) (test code = 711-2) 0.2 0.0-0.4 [facility] HospitalBasophils # (Auto)2018-09-22 23:55:00* Test Item Value Reference Range Interpretation Comments Basophils # (Auto) (test code = 704-7) 0.0 0.0-0.1 [facility] HospitalAbsolute Immature Granulocyte (auto 2018-09-22 23:55:00* Test Item Value Reference Range Interpretation Comments Absolute Immature Granulocyte (auto (clau t code = Absolute Immature Granulocyte (auto) 0.01 0-0.1 [facility] HospitalWhite Blood Djmet3154-32-89 23:55:00* Test Item Value Reference Range Interpretation Comments White Blood Count (test code = 6690-2) 6.13 4.8-10.8 [facility] HospitalRed Blood Ykbuc1714-02-18 23:55:00* Test Item Value Reference Range Interpretation Comments Red Blood Count (test code = 789-8) 4.21 4.3-5.7 L [facility] HospitalHemoglobin2019-04-11 23:55:00* Test Item Value Reference Range Interpretation Comments Hemoglobin (test code = 96250-4) 14.5 14.0-18.0 [facility] HospitalHematocrit2019-04-11 23:55:00* Test Item Value Reference Range Interpretation Comments Hematocrit (test code = 4544-3) 41.5 38.2-49.6 [facility] HospitalMean Corpuscular Hdqpdx8545-26-30 23:55:00* Test Item Value Reference Range Interpretation Comments Mean Corpuscular Volume (test code = 787-2) 98.6 81-99 [facility] HospitalMean Corpuscular Ulzpifmqvw1097-15-94 23:55:00* Test Item Value Reference Range Interpretation Comments Mean Corpuscular Hemoglobin (test code = 785-6) 34.4 28-32 H [facility] HospitalMean Corpuscular Hemoglobin Concent 2018-09-22 23:55:00* Test Item Value Reference Range Interpretation Comments Mean Corpuscular Hemoglobin Concent (test code = 786-4) 34.9 31-35 [facility] HospitalRed Cell Distribution Tjwbp5690-36-50 23:55:00* Test Item Value Reference Range Interpretation Comments Red Cell Distribution Width (test code = 66762-0) 13.1 11.7 -14.4 [facility] HospitalPlatelet Fxoca9505-24-04 23:55:00* Test Item Value Reference Range Interpretation Comments Platelet Count (test code = 777-3) 169 140-360 [facility] HospitalNeutrophils (%) (Auto)2018-09-22 23:55:00 * Test Item Value Reference Range Interpretation Comments Neutrophils (%) (Auto) (test code = 48850-8) 57.4 38.7-80.0 [facility] HospitalLymphocytes (%) (Auto)2018-09-22 23:55:00 * Test Item Value Reference Range Interpretation Comments Lymphocytes (%) (Auto) (test code = 736-9) 28.9 18.0-39.1 [facility] HospitalMonocytes (%) (Auto)2018-09-22 23:55:00* Test Item Value Reference Range Interpretation Comments Monocytes (%) (Auto) (test code = 5905-5) 10.6 4.4-11.3 [facility] HospitalEosinophils (%) (Auto)2018-09-22 23:55:00 * Test Item Value Reference Range Interpretation Comments Eosinophils (%) (Auto) (test code = 713-8) 2.6 0.0-6.0 [facility] HospitalBasophils (%) (Auto)2018-09-22 23:55:00* Test Item Value Reference Range Interpretation Comments Basophils (%) (Auto) (test code = 706-2) 0.3 0.0-1.0 [facility] HospitalIM GRANULOCYTES %2018-09-22 23:55:00* Test Item Value Reference Range Interpretation Comments IM GRANULOCYTES % (test code = IM GRANULOCYTES %) 0.2 0.0- 1.0 [facility] HospitalNeutrophils # (Auto)2018-09-22 23:55:00* Test Item Value Reference Range Interpretation Comments Neutrophils # (Auto) (test code = 751-8) 3.5 2.1-6.9 [facility] HospitalLymphocytes # (Auto)2018-09-22 23:55:00* Test Item Value Reference Range Interpretation Comments Lymphocytes # (Auto) (test code = 46039-8) 1.8 1.0-3.2 [facility] HospitalMonocytes # (Auto)2018-09-22 23:55:00* Test Item Value Reference Range Interpretation Comments Monocytes # (Auto) (test code = 742-7) 0.7 0.2-0.8 [facility] HospitalEosinophils # (Auto)2018-09-22 23:55:00* Test Item Value Reference Range Interpretation Comments Eosinophils # (Auto) (test code = 711-2) 0.2 0.0-0.4 [facility] HospitalBasophils # (Auto)2018-09-22 23:55:00* Test Item Value Reference Range Interpretation Comments Basophils # (Auto) (test code = 704-7) 0.0 0.0-0.1 [facility] HospitalAbsolute Immature Granulocyte (auto 2018-09-22 23:55:00* Test Item Value Reference Range Interpretation Comments Absolute Immature Granulocyte (auto (clau t code = Absolute Immature Granulocyte (auto) 0.01 0-0.1 [facility] HospitalWhite Blood Diylm1193-82-07 23:55:00* Test Item Value Reference Range Interpretation Comments White Blood Count (test code = 6690-2) 6.13 4.8-10.8 [facility] HospitalRed Blood Dbbbb6415-35-96 23:55:00* Test Item Value Reference Range Interpretation Comments Red Blood Count (test code = 789-8) 4.21 4.3-5.7 L [facility] HospitalHemoglobin2019-04-11 23:55:00* Test Item Value Reference Range Interpretation Comments Hemoglobin (test code = 05030-1) 14.5 14.0-18.0 [facility] HospitalHematocrit2019-04-11 23:55:00* Test Item Value Reference Range Interpretation Comments Hematocrit (test code = 4544-3) 41.5 38.2-49.6 [facility] HospitalMean Corpuscular Oglhst2691-98-51 23:55:00* Test Item Value Reference Range Interpretation Comments Mean Corpuscular Volume (test code = 787-2) 98.6 81-99 [facility] HospitalMean Corpuscular Zxfefplxxm8349-63-26 23:55:00* Test Item Value Reference Range Interpretation Comments Mean Corpuscular Hemoglobin (test code = 785-6) 34.4 28-32 H [facility] HospitalMean Corpuscular Hemoglobin Concent 2018-09-22 23:55:00* Test Item Value Reference Range Interpretation Comments Mean Corpuscular Hemoglobin Concent (test code = 786-4) 34.9 31-35 [facility] HospitalRed Cell Distribution Afwtq7923-18-69 23:55:00* Test Item Value Reference Range Interpretation Comments Red Cell Distribution Width (test code = 88288-1) 13.1 11.7 -14.4 [facility] HospitalPlatelet Tvfux3449-63-35 23:55:00* Test Item Value Reference Range Interpretation Comments Platelet Count (test code = 777-3) 169 140-360 [facility] HospitalNeutrophils (%) (Auto)2018-09-22 23:55:00 * Test Item Value Reference Range Interpretation Comments Neutrophils (%) (Auto) (test code = 86027-2) 57.4 38.7-80.0 [facility] HospitalLymphocytes (%) (Auto)2018-09-22 23:55:00 * Test Item Value Reference Range Interpretation Comments Lymphocytes (%) (Auto) (test code = 736-9) 28.9 18.0-39.1 [facility] HospitalMonocytes (%) (Auto)2018-09-22 23:55:00* Test Item Value Reference Range Interpretation Comments Monocytes (%) (Auto) (test code = 5905-5) 10.6 4.4-11.3 [facility] HospitalEosinophils (%) (Auto)2018-09-22 23:55:00 * Test Item Value Reference Range Interpretation Comments Eosinophils (%) (Auto) (test code = 713-8) 2.6 0.0-6.0 [facility] HospitalBasophils (%) (Auto)2018-09-22 23:55:00* Test Item Value Reference Range Interpretation Comments Basophils (%) (Auto) (test code = 706-2) 0.3 0.0-1.0 [facility] HospitalIM GRANULOCYTES %2018-09-22 23:55:00* Test Item Value Reference Range Interpretation Comments IM GRANULOCYTES % (test code = IM GRANULOCYTES %) 0.2 0.0- 1.0 [facility] HospitalNeutrophils # (Auto)2018-09-22 23:55:00* Test Item Value Reference Range Interpretation Comments Neutrophils # (Auto) (test code = 751-8) 3.5 2.1-6.9 [facility] HospitalLymphocytes # (Auto)2018-09-22 23:55:00* Test Item Value Reference Range Interpretation Comments Lymphocytes # (Auto) (test code = 48560-8) 1.8 1.0-3.2 [facility] HospitalMonocytes # (Auto)2018-09-22 23:55:00* Test Item Value Reference Range Interpretation Comments Monocytes # (Auto) (test code = 742-7) 0.7 0.2-0.8 [facility] HospitalEosinophils # (Auto)2018-09-22 23:55:00* Test Item Value Reference Range Interpretation Comments Eosinophils # (Auto) (test code = 711-2) 0.2 0.0-0.4 [facility]2018-09-22 23:55:00* Test Item Value Reference Range Interpretation Comments Basophils # (Auto) (test code = 704-7) 0.0 0.0-0.1 [facility] HospitalAbsolute Immature Granulocyte (auto 2018-09-22 23:55:00* Test Item Value Reference Range Interpretation Comments Absolute Immature Granulocyte (auto (clau t code = Absolute Immature Granulocyte (auto) 0.01 0-0.1 [facility] HospitalWhite Blood [id number] 23:55:00* Test Item Value Reference Range Interpretation Comments White Blood Count (test code = 6690-2) 6.13 4.8-10.8 [facility] HospitalRed Blood Hsibz6680-93-69 23:55:00* Test Item Value Reference Range Interpretation Comments Red Blood Count (test code = 789-8) 4.21 4.3-5.7 L [facility] HospitalHemoglobin2019-04-11 23:55:00* Test Item Value Reference Range Interpretation Comments Hemoglobin (test code = 57049-3) 14.5 14.0-18.0 [facility] HospitalHematocrit2019-04-11 23:55:00* Test Item Value Reference Range Interpretation Comments Hematocrit (test code = 4544-3) 41.5 38.2-49.6 [facility] HospitalMean Corpuscular Fwwvef1670-34-95 23:55:00* Test Item Value Reference Range Interpretation Comments Mean Corpuscular Volume (test code = 787-2) 98.6 81-99 [facility]Mean Corpuscular Vnkagfojyc4364-71-86 23:55:00* Test Item Value Reference Range Interpretation Comments Mean Corpuscular Hemoglobin (test code = 785-6) 34.4 28-32 H [facility] HospitalMean Corpuscular Hemoglobin Concent 2018-09-22 23:55:00* Test Item Value Reference Range Interpretation Comments Mean Corpuscular Hemoglobin Concent (test code = 786-4) 34.9 31-35 [facility] HospitalRed Cell Distribution Ycyqo9641-85-51 23:55:00* Test Item Value Reference Range Interpretation Comments Red Cell Distribution Width (test code = 57931-7) 13.1 11.7 -14.4 [facility] HospitalPlatelet Wnosd8051-52-60 23:55:00* Test Item Value Reference Range Interpretation Comments Platelet Count (test code = 777-3) 169 140-360 [facility] HospitalNeutrophils (%) (Auto)2018-09-22 23:55:00 * Test Item Value Reference Range Interpretation Comments Neutrophils (%) (Auto) (test code = 27363-6) 57.4 38.7-80.0 [facility] HospitalLymphocytes (%) (Auto)2018-09-22 23:55:00 * Test Item Value Reference Range Interpretation Comments Lymphocytes (%) (Auto) (test code = 736-9) 28.9 18.0-39.1 [facility] HospitalMonocytes (%) (Auto)2018-09-22 23:55:00* Test Item Value Reference Range Interpretation Comments Monocytes (%) (Auto) (test code = 5905-5) 10.6 4.4-11.3 [facility] HospitalEosinophils (%) (Auto)2018-09-22 23:55:00 * Test Item Value Reference Range Interpretation Comments Eosinophils (%) (Auto) (test code = 713-8) 2.6 0.0-6.0 [facility] HospitalBasophils (%) (Auto)2018-09-22 23:55:00* Test Item Value Reference Range Interpretation Comments Basophils (%) (Auto) (test code = 706-2) 0.3 0.0-1.0 [facility] HospitalIM GRANULOCYTES %2018-09-22 23:55:00* Test Item Value Reference Range Interpretation Comments IM GRANULOCYTES % (test code = IM GRANULOCYTES %) 0.2 0.0- 1.0 [facility] HospitalNeutrophils # (Auto)2018-09-22 23:55:00* Test Item Value Reference Range Interpretation Comments Neutrophils # (Auto) (test code = 751-8) 3.5 2.1-6.9 [facility] HospitalLymphocytes # (Auto)2018-09-22 23:55:00* Test Item Value Reference Range Interpretation Comments Lymphocytes # (Auto) (test code = 52784-4) 1.8 1.0-3.2 [facility] HospitalMonocytes # (Auto)2018-09-22 23:55:00* Test Item Value Reference Range Interpretation Comments Monocytes # (Auto) (test code = 742-7) 0.7 0.2-0.8 [facility] HospitalEosinophils # (Auto)2018-09-22 23:55:00* Test Item Value Reference Range Interpretation Comments Eosinophils # (Auto) (test code = 711-2) 0.2 0.0-0.4 [facility] HospitalBasophils # (Auto)2018-09-22 23:55:00* Test Item Value Reference Range Interpretation Comments Basophils # (Auto) (test code = 704-7) 0.0 0.0-0.1 [facility] HospitalAbsolute Immature Granulocyte (auto 2018-09-22 23:55:00* Test Item Value Reference Range Interpretation Comments Absolute Immature Granulocyte (auto (clau t code = Absolute Immature Granulocyte (auto) 0.01 0-0.1 [facility] HospitalWhite Blood Fqdht1420-43-44 23:55:00* Test Item Value Reference Range Interpretation Comments White Blood Count (test code = 6690-2) 6.13 4.8-10.8 [facility] HospitalRed Blood Fhrdy7643-24-63 23:55:00* Test Item Value Reference Range Interpretation Comments Red Blood Count (test code = 789-8) 4.21 4.3-5.7 L [facility] HospitalHemoglobin2019-04-11 23:55:00* Test Item Value Reference Range Interpretation Comments Hemoglobin (test code = 91217-4) 14.5 14.0-18.0 [facility] HospitalHematocrit2019-04-11 23:55:00* Test Item Value Reference Range Interpretation Comments Hematocrit (test code = 4544-3) 41.5 38.2-49.6 [facility] HospitalMean Corpuscular Hhtbii2262-02-60 23:55:00* Test Item Value Reference Range Interpretation Comments Mean Corpuscular Volume (test code = 787-2) 98.6 81-99 [facility] HospitalMean Corpuscular Berdawwizq9015-07-12 23:55:00* Test Item Value Reference Range Interpretation Comments Mean Corpuscular Hemoglobin (test code = 785-6) 34.4 28-32 H [facility] HospitalMean Corpuscular Hemoglobin Concent 2018-09-22 23:55:00* Test Item Value Reference Range Interpretation Comments Mean Corpuscular Hemoglobin Concent (test code = 786-4) 34.9 31-35 [facility] HospitalRed Cell Distribution Yumno4817-75-45 23:55:00* Test Item Value Reference Range Interpretation Comments Red Cell Distribution Width (test code = 19099-2) 13.1 11.7 -14.4 [facility] HospitalPlatelet Exzch3948-80-37 23:55:00* Test Item Value Reference Range Interpretation Comments Platelet Count (test code = 777-3) 169 140-360 [facility] HospitalNeutrophils (%) (Auto)2018-09-22 23:55:00 * Test Item Value Reference Range Interpretation Comments Neutrophils (%) (Auto) (test code = 47271-6) 57.4 38.7-80.0 [facility] HospitalLymphocytes (%) (Auto)2018-09-22 23:55:00 * Test Item Value Reference Range Interpretation Comments Lymphocytes (%) (Auto) (test code = 736-9) 28.9 18.0-39.1 [facility] HospitalMonocytes (%) (Auto)2018-09-22 23:55:00* Test Item Value Reference Range Interpretation Comments Monocytes (%) (Auto) (test code = 5905-5) 10.6 4.4-11.3 [facility] HospitalEosinophils (%) (Auto)2018-09-22 23:55:00 * Test Item Value Reference Range Interpretation Comments Eosinophils (%) (Auto) (test code = 713-8) 2.6 0.0-6.0 [facility] HospitalBasophils (%) (Auto)2018-09-22 23:55:00* Test Item Value Reference Range Interpretation Comments Basophils (%) (Auto) (test code = 706-2) 0.3 0.0-1.0 [facility] HospitalIM GRANULOCYTES %2018-09-22 23:55:00* Test Item Value Reference Range Interpretation Comments IM GRANULOCYTES % (test code = IM GRANULOCYTES %) 0.2 0.0- 1.0 [facility] HospitalNeutrophils # (Auto)2018-09-22 23:55:00* Test Item Value Reference Range Interpretation Comments Neutrophils # (Auto) (test code = 751-8) 3.5 2.1-6.9 [facility] HospitalLymphocytes # (Auto)2018-09-22 23:55:00* Test Item Value Reference Range Interpretation Comments Lymphocytes # (Auto) (test code = 78122-1) 1.8 1.0-3.2 [facility] HospitalMonocytes # (Auto)2018-09-22 23:55:00* Test Item Value Reference Range Interpretation Comments Monocytes # (Auto) (test code = 742-7) 0.7 0.2-0.8 [facility] HospitalEosinophils # (Auto)2018-09-22 23:55:00* Test Item Value Reference Range Interpretation Comments Eosinophils # (Auto) (test code = 711-2) 0.2 0.0-0.4 [facility] HospitalBasophils # (Auto)2018-09-22 23:55:00* Test Item Value Reference Range Interpretation Comments Basophils # (Auto) (test code = 704-7) 0.0 0.0-0.1 [facility] HospitalAbsolute Immature Granulocyte (auto 2018-09-22 23:55:00* Test Item Value Reference Range Interpretation Comments Absolute Immature Granulocyte (auto (clau t code = Absolute Immature Granulocyte (auto) 0.01 0-0.1 [facility] HospitalWhite Blood Sscal2075-61-93 23:55:00* Test Item Value Reference Range Interpretation Comments White Blood Count (test code = 6690-2) 6.13 4.8-10.8 [facility] HospitalRed Blood Lxcfx3288-76-91 23:55:00* Test Item Value Reference Range Interpretation Comments Red Blood Count (test code = 789-8) 4.21 4.3-5.7 L [facility] HospitalHemoglobin2019-04-11 23:55:00* Test Item Value Reference Range Interpretation Comments Hemoglobin (test code = 32766-4) 14.5 14.0-18.0 [facility] HospitalHematocrit2019-04-11 23:55:00* Test Item Value Reference Range Interpretation Comments Hematocrit (test code = 4544-3) 41.5 38.2-49.6 [facility] HospitalMean Corpuscular Meiloc0559-52-52 23:55:00* Test Item Value Reference Range Interpretation Comments Mean Corpuscular Volume (test code = 787-2) 98.6 81-99 [facility] HospitalMean Corpuscular Frkazjvmsn8480-19-78 23:55:00* Test Item Value Reference Range Interpretation Comments Mean Corpuscular Hemoglobin (test code = 785-6) 34.4 28-32 H [facility] HospitalMean Corpuscular Hemoglobin Concent 2018-09-22 23:55:00* Test Item Value Reference Range Interpretation Comments Mean Corpuscular Hemoglobin Concent (test code = 786-4) 34.9 31-35 [facility] HospitalRed Cell Distribution Pctcz0715-75-08 23:55:00* Test Item Value Reference Range Interpretation Comments Red Cell Distribution Width (test code = 59480-2) 13.1 11.7 -14.4 [facility] HospitalPlatelet Pitlp7350-39-63 23:55:00* Test Item Value Reference Range Interpretation Comments Platelet Count (test code = 777-3) 169 140-360 [facility] HospitalNeutrophils (%) (Auto)2018-09-22 23:55:00 * Test Item Value Reference Range Interpretation Comments Neutrophils (%) (Auto) (test code = 41363-7) 57.4 38.7-80.0 [facility] HospitalLymphocytes (%) (Auto)2018-09-22 23:55:00 * Test Item Value Reference Range Interpretation Comments Lymphocytes (%) (Auto) (test code = 736-9) 28.9 18.0-39.1 [facility] HospitalMonocytes (%) (Auto)2018-09-22 23:55:00* Test Item Value Reference Range Interpretation Comments Monocytes (%) (Auto) (test code = 5905-5) 10.6 4.4-11.3 [facility] HospitalEosinophils (%) (Auto)2018-09-22 23:55:00 * Test Item Value Reference Range Interpretation Comments Eosinophils (%) (Auto) (test code = 713-8) 2.6 0.0-6.0 [facility] HospitalBasophils (%) (Auto)2018-09-22 23:55:00* Test Item Value Reference Range Interpretation Comments Basophils (%) (Auto) (test code = 706-2) 0.3 0.0-1.0 [facility] HospitalIM GRANULOCYTES %2018-09-22 23:55:00* Test Item Value Reference Range Interpretation Comments IM GRANULOCYTES % (test code = IM GRANULOCYTES %) 0.2 0.0- 1.0 [facility] HospitalNeutrophils # (Auto)2018-09-22 23:55:00* Test Item Value Reference Range Interpretation Comments Neutrophils # (Auto) (test code = 751-8) 3.5 2.1-6.9 [facility] HospitalLymphocytes # (Auto)2018-09-22 23:55:00* Test Item Value Reference Range Interpretation Comments Lymphocytes # (Auto) (test code = 80438-7) 1.8 1.0-3.2 [facility] HospitalMonocytes # (Auto)2018-09-22 23:55:00* Test Item Value Reference Range Interpretation Comments Monocytes # (Auto) (test code = 742-7) 0.7 0.2-0.8 [facility] HospitalEosinophils # (Auto)2018-09-22 23:55:00* Test Item Value Reference Range Interpretation Comments Eosinophils # (Auto) (test code = 711-2) 0.2 0.0-0.4 [facility] HospitalBasophils # (Auto)2018-09-22 23:55:00* Test Item Value Reference Range Interpretation Comments Basophils # (Auto) (test code = 704-7) 0.0 0.0-0.1 [facility] HospitalAbsolute Immature Granulocyte (auto 2018-09-22 23:55:00* Test Item Value Reference Range Interpretation Comments Absolute Immature Granulocyte (auto (clau t code = Absolute Immature Granulocyte (auto) 0.01 0-0.1 [facility] HospitalWhite Blood Nbeqn1814-65-08 23:55:00* Test Item Value Reference Range Interpretation Comments White Blood Count (test code = 6690-2) 6.13 4.8-10.8 [facility] HospitalRed Blood Oyybx1559-57-24 23:55:00* Test Item Value Reference Range Interpretation Comments Red Blood Count (test code = 789-8) 4.21 4.3-5.7 L [facility] HospitalHemoglobin2019-04-11 23:55:00* Test Item Value Reference Range Interpretation Comments Hemoglobin (test code = 97202-4) 14.5 14.0-18.0 [facility] HospitalHematocrit2019-04-11 23:55:00* Test Item Value Reference Range Interpretation Comments Hematocrit (test code = 4544-3) 41.5 38.2-49.6 [facility] HospitalMean Corpuscular Sfkxud0044-50-42 23:55:00* Test Item Value Reference Range Interpretation Comments Mean Corpuscular Volume (test code = 787-2) 98.6 81-99 [facility] HospitalMean Corpuscular Qvyiavlvme1924-07-09 23:55:00* Test Item Value Reference Range Interpretation Comments Mean Corpuscular Hemoglobin (test code = 785-6) 34.4 28-32 H [facility] HospitalMean Corpuscular Hemoglobin Concent 2018-09-22 23:55:00* Test Item Value Reference Range Interpretation Comments Mean Corpuscular Hemoglobin Concent (test code = 786-4) 34.9 31-35 [facility] HospitalRed Cell Distribution Zbefb5916-28-01 23:55:00* Test Item Value Reference Range Interpretation Comments Red Cell Distribution Width (test code = 72801-5) 13.1 11.7 -14.4 [facility] HospitalPlatelet Hkwtx8367-08-63 23:55:00* Test Item Value Reference Range Interpretation Comments Platelet Count (test code = 777-3) 169 140-360 [facility] HospitalNeutrophils (%) (Auto)2018-09-22 23:55:00 * Test Item Value Reference Range Interpretation Comments Neutrophils (%) (Auto) (test code = 59431-5) 57.4 38.7-80.0 [facility] HospitalLymphocytes (%) (Auto)2018-09-22 23:55:00 * Test Item Value Reference Range Interpretation Comments Lymphocytes (%) (Auto) (test code = 736-9) 28.9 18.0-39.1 [facility] HospitalMonocytes (%) (Auto)2018-09-22 23:55:00* Test Item Value Reference Range Interpretation Comments Monocytes (%) (Auto) (test code = 5905-5) 10.6 4.4-11.3 [facility] HospitalEosinophils (%) (Auto)2018-09-22 23:55:00 * Test Item Value Reference Range Interpretation Comments Eosinophils (%) (Auto) (test code = 713-8) 2.6 0.0-6.0 [facility] HospitalBasophils (%) (Auto)2018-09-22 23:55:00* Test Item Value Reference Range Interpretation Comments Basophils (%) (Auto) (test code = 706-2) 0.3 0.0-1.0 [facility] HospitalIM GRANULOCYTES %2018-09-22 23:55:00* Test Item Value Reference Range Interpretation Comments IM GRANULOCYTES % (test code = IM GRANULOCYTES %) 0.2 0.0- 1.0 [facility] HospitalNeutrophils # (Auto)2018-09-22 23:55:00* Test Item Value Reference Range Interpretation Comments Neutrophils # (Auto) (test code = 751-8) 3.5 2.1-6.9 [facility] HospitalLymphocytes # (Auto)2018-09-22 23:55:00* Test Item Value Reference Range Interpretation Comments Lymphocytes # (Auto) (test code = 56519-2) 1.8 1.0-3.2 [facility] HospitalMonocytes # (Auto)2018-09-22 23:55:00* Test Item Value Reference Range Interpretation Comments Monocytes # (Auto) (test code = 742-7) 0.7 0.2-0.8 [facility] HospitalEosinophils # (Auto)2018-09-22 23:55:00* Test Item Value Reference Range Interpretation Comments Eosinophils # (Auto) (test code = 711-2) 0.2 0.0-0.4 [facility] HospitalBasophils # (Auto)2018-09-22 23:55:00* Test Item Value Reference Range Interpretation Comments Basophils # (Auto) (test code = 704-7) 0.0 0.0-0.1 [facility] HospitalAbsolute Immature Granulocyte (auto 2018-09-22 23:55:00* Test Item Value Reference Range Interpretation Comments Absolute Immature Granulocyte (auto (clau t code = Absolute Immature Granulocyte (auto) 0.01 0-0.1 [facility]
== END 2020-05-03 20:26 | disposition other institution (70) ==
LOC: ER 14:10
DX: U07.1 COVID-19 (principal); J18.9 Pneumonia, unspecified organism; J96.91 Respiratory failure, unspecified with hypoxia; R94.31 Abnormal electrocardiogram [ECG] [EKG]
CPT/HCPCS: 36415; 71260; 80053; 82550; 82553; 83880; 84484; 85025; 85610; 85730; 87040; 87071; 87205; 87400; 93005; 99284; J0456; J0696; J1100; J7030; Q9967; U0002